=== PATIENT | male | born 1935 | race Caucasian/White ===

== ENCOUNTER → 2023-07-29 11:23 | Outpatient (REF) | payer MEDICARE, OTHER, SELFPAY | LOC: HWRAD 11:23 | PROVIDERS: ATTENDING PHYSICIAN Podiatrist | DX: M1A.0710 Idiopathic chronic gout, right ankle and foot, without tophus (tophi) (principal); M79.671 Pain in right foot | CPT/HCPCS: 73630 ==

== ENCOUNTER → 2023-08-09 13:08 | Outpatient (REF) | payer MEDICARE, OTHER, SELFPAY | LOC: RAD 13:08 | PROVIDERS: ATTENDING PHYSICIAN Podiatrist; FAMILY PHYSICIAN Internal Medicine Geriatric Medicine | DX: I80.9 Phlebitis and thrombophlebitis of unspecified site (principal); M79.671 Pain in right foot; R60.0 Localized edema | CPT/HCPCS: 93971 ==

== ENCOUNTER 2023-10-12 11:00 | Inpatient (IN) | payer MEDICARE, OTHER, SELFPAY ==
[2023-10-11 18:33] VITALS: BP 153/71
[2023-10-11 18:42] VITALS: BMI 22.7
[2023-10-11 19:42] LABS: % Basophils 0.6 % (0-2); % Eosinophils 2.2 % (0-6); % Immature Granulocytes 0.2 % (0-0.5); % Lymphocytes 18.7 % (20.5-51.1); % Monocytes 10.6 % (1.7-9.3); % Neutrophils 67.7 % (42.2-75.2); Absolute Eosinophils 0.1 10^3/uL (0-0.7); Absolute Monocytes 0.6 10^3/uL (0.1-0.6); Absolute Neutrophils 3.7 10^3/uL (1.4-6.5); Hematocrit 31.7 % (39.0-52.0); Hemoglobin 11.3 g/dL (13.0-18.0); Mean Corp Hgb Conc. 35.6 g/dL (33.0-37.0); Mean Corpuscular Hgb 36.3 pg (27.0-31.0); Mean Corpuscular Volume 101.9 fL (80.0-94.0); Nucleated Red Blood Cells % 0 % (-); Platelet Count 100 10^3/uL (130-400); Red Blood Cell Count 3.11 10^6/uL (4.70-6.10); Red Cell Dist. Width 15.9 % (11.5-14.5); White Blood Cell Count 5.5 10^3/uL (4.8-10.8)
--- NOTE | 2023-10-11 19:49 | ED.GENMED ---
History of Present Illness
<Roverto Doan Jr., PA-C - Last Filed: 10/12/23 07:01>
General
Chief Complaint: Fall
Source: patient, spouse and family
Exam Limitations: none
Time Seen by Provider: 10/11/23 18:50
Nursing documentation reviewed up to this point in time: agreed with
Travel History
Have you had any contact with someone who has COVID-19?: No
Do you have any symptoms of coronavirus? Fever > 100 degrees, chills, cough, shortness of breath, sore throat, loss of taste or smell, muscle aches, or headache?: No
History of Present Illness
History of Present Illness:
87-year-old male past medical history of A-fib currently on Coumadin, heart disease presenting to the emergency department today with concerns of multiple falls claiming that his right leg is giving out. Denies any significant trauma did not hit
his head. Lives in independent living with his elderly . Denies any chest pain shortness of breath. No numbness or weakness.
Past History
<Roverto Doan Jr., PA-C - Last Filed: 10/12/23 07:01>
Past History
ED Past Medical History: Arrthythmia, CAD, Cancer, HTN and Other
ED Past Surgical History: Orthopedic
Social History
Tobacco: Non-smoker
Alcohol: None
Drug: None
Personal:
Living: with family
Employment: Retired
Family History
Family History: Other (Noncontributory)
Review of Systems
<Roverto Doan Jr., PA-C - Last Filed: 10/12/23 07:01>
Review of Systems
Allergies reviewed?: Yes
All Other Systems: ROS reviewed and negative except as documented in HPI and ROS
Phy Exam
<Roverto Doan Jr., PA-C - Last Filed: 10/12/23 07:01>
Physical Exam
Physical Exam:
GENERAL: Alert , in no apparent distress
EYE: pupils equal and reactive
NECK: Supple, no significant adenopathy.
ENT: o/p clr, mmm.
CARDIAC: Regular rate and rhythm .
LUNGS: Clear breath sounds bilaterally, no acute respiratory distress, no wheezes/rales/rhonchi
ABDOMEN: Soft, without focal tenderness, no r/g, no cvat
NEUROLOGICAL: Alert and oriented, no focal neuro deficits
SKIN: Warm and dry, skin intact.
MUSCULOSKELETAL: Significantly swollen right leg +2 pitting edema left-sided +1 pitting edema pitting edema mainly distal to the knees bilaterally. Difficulty with raising the right leg on exam. No sensation changes well perfused.
PSYCH: Normal and appropriate interaction.
Course
<Roverto Doan Jr., PA-C - Last Filed: 10/12/23 07:01>
Orders/Labs/Results
Orders:
Orders
10/11/23 Dinner
Cholesterol Lowering
At Your Request: Full Participation
Fluid Restriction: 1200 mL/day (40 oz)
Cholesterol Lowering: Sodium, 2 Gram
10/11/23 19:24
CR Knee- Right 4 Or More View* Urgent
Comment:
Reason For Exam: leg pain
Hip, Right 2-3 Views [CR Hip - RT w/wo Pel 2-3 Vw*] Urgent
Comment:
Reason For Exam: right hip pain
Include a pelvis x-ray?: Yes
Venous Doppler Lwr Ext Rt [US Periph Venous LOWER Ext RT] Urgent
Comment:
Reason For Exam: leg swelling
10/11/23 19:28
CBC/With Diff [Complete Blood Count/With Diff] Urgent
CMP [Comprehensive Metabolic Panel] Urgent
PT/INR [Prothrombin Time] Urgent
Urinalysis Reflex To Culture Urgent
Date Specimen was Collected: 10/11/23
Time Specimen was Collected: :
Urine Microscopic Reflex Cult Urgent
Urine Culture Urgent
ANA LUISA Source: U
Specimen Description:
Date Specimen was Collected: 10/11/23
Time Specimen was Collected: 19:
10/11/23 21:36
EKG [Electrocardiogram (*1)] Urgent
Reason for Study: Atrial Fibrillation
10/11/23 22:01
Admit/Transfer Patient As Directed
Co-Sign Provider:
Level of Care: Observation services
Assign to:: Telemetry
Physician / Group: lorraine romo
Diagnosis: acute on chronic periph edema concern chf exac
Reason for Telemetry: Subacute Heart Failure
Date to Stop Telemetry: 10/13/23
Time to Stop Telemetry: 11:00
Reason for Hospitalization: acute on chronic periph edema concern chf exac
Code Status As Directed
Resuscitation Status: Do not resuscitate
Reached after discussion with pt or family/Healthcare POA: Yes
Based on pt advanced directive or healthcare POA form: Yes
Decision communicated with: per pt
10/11/23 22:02
DNR Bracelet Application ONCE
10/11/23 22:27
BNP [NT-proBNP] Urgent
10/11/23 23:55
Bisacodyl [Dulcolax] 10 mg RECTAL [id number] PRN
Diphenhydramine [Benadryl] 25 mg PO HSPRN PRN
Docusate W/Senna [Senokot-S] 1 tablet PO BIDPRN PRN
Hydrocodone 5/APAP 325 [[place] 5/325] 1 tablet PO QIDPRN PRN
Polyethylene Glycol Powder [Miralax] 17 grams PO DAILYPRN PRN
10/11/23 23:55
VTE Contraindication Routine
VTE Mechanical Device Contraindication: Medical Contraindication
Pharmocologic Contraindication: Medical Contraindication
Comment: pt on coumadin
Activity As Directed
Activity Level: With Assistance
Intake/ Output As Directed
Frequency: Per unit guidelines
Nursing to Place Non Medication Order As Directed
Physician Order: apply tubigrips to lower legs
Above order entered?: Yes
Vital Signs As Directed
Frequency: Per unit guidelines
Weight As Directed
Frequency: Daily
Ot Eval And Treat Routine
Pt Eval And Treat Routine
Activity Level: As Tolerated
10/12/23 03:36
Basic Metabolic Panel IN AM
Complete Blood Count/With Diff IN AM
INR [Prothrombin Time] IN AM
10/12/23 08:00
Allopurinol [Zyloprim] 100 mg PO DAILY
Amlodipine [Norvasc] 2.5 mg PO DAILY
Metoprolol Xl [Toprol Xl] 25 mg PO DAILY
Sacubitril 24/Valsartan 26 [Entresto 24 mg/26 mg] 1 tab PO BID
Tamsulosin [Flomax] 0.4 mg PO DAILY
10/12/23 18:00
Atorvastatin [Lipitor] 20 mg PO QPM
Warfarin [Coumadin] 6 mg PO QPM
10/12/23 22:00
Aspirin Low Dose EC [Aspir Low (Enteric Coated)] 81 mg PO HS
Finasteride [Proscar] 5 mg PO HS
10/13/23 06:00
Basic Metabolic Panel IN AM
Complete Blood Count/With Diff IN AM
INR [Prothrombin Time] IN AM
10/13/23 11:00
DC Protocol for Telemetry ONCE
Abnormal Lab Results
10/11/23
19:28
RBC 3.11 L 10^6/uL
(4.70-6.10)
Hgb 11.3 L g/dL
(13.0-18.0)
Hct 31.7 L %
(39.0-52.0)
MCV 101.9 H fL
(80.0-94.0)
MCH 36.3 H pg
(27.0-31.0)
RDW 15.9 H %
(11.5-14.5)
Plt Count 100 L 10^3/uL
(130-400)
Absolute Lymphs (auto) 1.0 L 10^3/uL
(1.2-3.4)
Lymphocytes % 18.7 L %
(20.5-51.1)
Monocytes % 10.6 H %
(1.7-9.3)
PT 22.6 H Sec
(11.4-14.6)
BUN 29 H mg/dl
(9-20)
Glucose 111 H mg/dl
(70-99)
Alkaline Phosphatase 178 H U/L
(38-126)
Total Protein 6.1 L g/dl
(6.3-8.2)
Urine Ketones Trace A
(Negative)
Leukocyte Esterase Rfl 1+ A
(Negative)
Urine Bacteria (Reflex) Many A
(Negative)
10/11/23 19:28
10/11/23 19:28
Vital Signs
Initial and Last Documented VS:
Initial Vital Signs
Temp Pulse Resp BP Pulse Ox
98.3 F 66 20 153/71 96
10/11/23 18:33 10/11/23 18:33 10/11/23 18:33 10/11/23 18:33 10/11/23 18:33
Last Documented Vital Signs
Temp Pulse Resp BP Pulse Ox
97.6 F 62 16 164/91 97
10/12/23 03:37 10/12/23 05:00 10/12/23 03:37 10/12/23 03:35 10/12/23 03:37
<Daija Wilson, INTERACTIVE MEDIA SPECIALIST - Last Filed: 10/11/23 23:24>
Orders/Labs/Results
Orders:
Orders
10/11/23 Dinner
Cholesterol Lowering
At Your Request: Full Participation
Fluid Restriction: 1200 mL/day (40 oz)
Cholesterol Lowering: Sodium, 2 Gram
10/11/23 19:24
CR Knee- Right 4 Or More View* Urgent
Comment:
Reason For Exam: leg pain
Hip, Right 2-3 Views [CR Hip - RT w/wo Pel 2-3 Vw*] Urgent
Comment:
Reason For Exam: right hip pain
Include a pelvis x-ray?: Yes
Venous Doppler Lwr Ext Rt [US Periph Venous LOWER Ext RT] Urgent
Comment:
Reason For Exam: leg swelling
10/11/23 19:28
CBC/With Diff [Complete Blood Count/With Diff] Urgent
CMP [Comprehensive Metabolic Panel] Urgent
PT/INR [Prothrombin Time] Urgent
Urinalysis Reflex To Culture Urgent
Date Specimen was Collected: 10/11/23
Time Specimen was Collected: 19:27
Urine Microscopic Reflex Cult Urgent
Urine Culture Urgent
ANA LUISA Source: U
Specimen Description:
Date Specimen was Collected: 10/11/23
Time Specimen was Collected: 19:27
10/11/23 21:36
EKG [Electrocardiogram (*1)] Urgent
Reason for Study: Atrial Fibrillation
10/11/23 22:01
Admit/Transfer Patient As Directed
Co-Sign Provider:
Level of Care: Observation services
Assign to:: Telemetry
Physician / Group: lorraine romo
Diagnosis: acute on chronic periph edema concern chf exac
Reason for Telemetry: Subacute Heart Failure
Date to Stop Telemetry: 10/13/23
Time to Stop Telemetry: 11:00
Reason for Hospitalization: acute on chronic periph edema concern chf exac
Code Status As Directed
Resuscitation Status: Do not resuscitate
Reached after discussion with pt or family/Healthcare POA: Yes
Based on pt advanced directive or healthcare POA form: Yes
Decision communicated with: per pt
10/11/23 22:02
DNR Bracelet Application ONCE
10/11/23 22:27
BNP [NT-proBNP] Urgent
10/11/23 23:55
Bisacodyl [Dulcolax] 10 mg RECTAL [id number] PRN
Diphenhydramine [Benadryl] 25 mg PO HSPRN PRN
Docusate W/Senna [Senokot-S] 1 tablet PO BIDPRN PRN
Hydrocodone 5/APAP 325 [[place] 5/325] 1 tablet PO QIDPRN PRN
Polyethylene Glycol Powder [Miralax] 17 grams PO DAILYPRN PRN
10/11/23 23:55
VTE Contraindication Routine
VTE Mechanical Device Contraindication: Medical Contraindication
Pharmocologic Contraindication: Medical Contraindication
Comment: pt on coumadin
Activity As Directed
Activity Level: With Assistance
Intake/ Output As Directed
Frequency: Per unit guidelines
Nursing to Place Non Medication Order As Directed
Physician Order: apply tubigrips to lower legs
Above order entered?: Yes
Vital Signs As Directed
Frequency: Per unit guidelines
Weight As Directed
Frequency: Daily
Ot Eval And Treat Routine
Pt Eval And Treat Routine
Activity Level: As Tolerated
10/12/23 03:36
Basic Metabolic Panel IN AM
Complete Blood Count/With Diff IN AM
INR [Prothrombin Time] IN AM
10/12/23 08:00
Allopurinol [Zyloprim] 100 mg PO DAILY
Amlodipine [Norvasc] 2.5 mg PO DAILY
Metoprolol Xl [Toprol Xl] 25 mg PO DAILY
Sacubitril 24/Valsartan 26 [Entresto 24 mg/26 mg] 1 tab PO BID
Tamsulosin [Flomax] 0.4 mg PO DAILY
10/12/23 18:00
Atorvastatin [Lipitor] 20 mg PO QPM
Warfarin [Coumadin] 6 mg PO QPM
10/12/23 22:00
Aspirin Low Dose EC [Aspir Low (Enteric Coated)] 81 mg PO HS
Finasteride [Proscar] 5 mg PO HS
10/13/23 06:00
Basic Metabolic Panel IN AM
Complete Blood Count/With Diff IN AM
INR [Prothrombin Time] IN AM
10/13/23 11:00
DC Protocol for Telemetry ONCE
Abnormal Lab Results
10/11/23
19:28
RBC 3.11 L 10^6/uL
(4.70-6.10)
Hgb 11.3 L g/dL
(13.0-18.0)
Hct 31.7 L %
(39.0-52.0)
MCV 101.9 H fL
(80.0-94.0)
MCH 36.3 H pg
(27.0-31.0)
RDW 15.9 H %
(11.5-14.5)
Plt Count 100 L 10^3/uL
(130-400)
Absolute Lymphs (auto) 1.0 L 10^3/uL
(1.2-3.4)
Lymphocytes % 18.7 L %
(20.5-51.1)
Monocytes % 10.6 H %
(1.7-9.3)
PT 22.6 H Sec
(11.4-14.6)
BUN 29 H mg/dl
(9-20)
Glucose 111 H mg/dl
(70-99)
Alkaline Phosphatase 178 H U/L
(38-126)
Total Protein 6.1 L g/dl
(6.3-8.2)
Urine Ketones Trace A
(Negative)
Leukocyte Esterase Rfl 1+ A
(Negative)
Urine Bacteria (Reflex) Many A
(Negative)
10/11/23 19:28
10/11/23 19:28
Vital Signs
Initial and Last Documented VS:
Initial Vital Signs
Temp Pulse Resp BP Pulse Ox
98.3 F 66 20 153/71 96
10/11/23 18:33 10/11/23 18:33 10/11/23 18:33 10/11/23 18:33 10/11/23 18:33
Last Documented Vital Signs
Temp Pulse Resp BP Pulse Ox
97.6 F 62 16 164/91 97
10/12/23 03:37 10/12/23 05:00 10/12/23 03:37 10/12/23 03:35 10/12/23 03:37
<Roverto Doan Jr., PA-C - Last Filed: 10/12/23 07:01>
MDM/Problems Addressed
MDM/Problems Addressed:
87-year-old male presenting to the emergency department today with concerns of multiple falls today claims that his right leg has felt heavy difficulty with ambulating secondary to it. Comes that he had chronic problems with the right leg. He is
noticed increased swelling to the right leg as well. On examination he has significant swelling to the right leg without redness or warmth no signs of infection. No specific focal pain.
<Daija Wilson INTERACTIVE MEDIA SPECIALIST - Last Filed: 10/11/23 23:24>
MDM/Problems Addressed
MDM/Problems Addressed:
87-year-old male presenting to the emergency department today with concerns of multiple falls today claims that his right leg has felt heavy difficulty with ambulating secondary to it. Comes that he had chronic problems with the right leg. He is
noticed increased swelling to the right leg as well. On examination he has significant swelling to the right leg without redness or warmth no signs of infection. No specific focal pain.
US: No DVT
Plan: Admit, ambulatory dysfunction, fall due to significant leg swelling
Hospitalist notified of admission
Needs P/T and Case Management
<Daija Wilson INTERACTIVE MEDIA SPECIALIST - Last Filed: 10/11/23 23:24>
*Critical Care Note
Total Time (30-74mins, 75-104mins- exclusive of procedures): Not Applicable
ED Attending Note
<Roverto Doan Jr., PA-C - Last Filed: 10/12/23 07:01>
-
Portions of this chart may have been created with voice recognition software.� Occasional wrong word or��sound alike� substitutions may have occurred due to the inherent limitations of voice recognition software.
Discharge Plan
Departure
Patient Disposition: Admit
Date of Disposition: 10/11/23
Time of Disposition: 21:17
Admit to: Med/Surg
Presentation/result/management discussed w/ accepting MD/DO: Hospitalist
Condition: Fair
Discharge Problem:
Fall, Ambulatory dysfunction, Swelling of right lower extremity
Interventions
Interventions:
*Risk Screen - Suicide Last Done: 10/11/23 18:33
*General Assessment Last Done: 10/11/23 18:33
*Neglect/Abuse Screening Last Done: 10/11/23 18:33
ED- Fall Risk Assessment Last Done: 10/11/23 18:44
*ED COVID-19 Vaccine History Last Done: 10/11/23 18:43
*Nursing Disposition Last Done: 10/11/23 23:50
ED-Musculoskeletal Assessment Last Done: 10/11/23 18:45
ED- Neurological Assessment Last Done: 10/11/23 18:45
ED-Skin Assessment Last Done: 10/11/23 18:45
Discharge Date and Time
Discharge Date/Time: 10/11/23 23:52
[2023-10-11 19:50] VITALS: BP 137/73
[2023-10-11 19:52] LABS: INR 2.01; PT 22.6 Sec (11.4-14.6)
[2023-10-11 19:54] LABS: ALT (SGPT) 26 U/L (0-50); AST (SGOT) 31 U/L (17-59); Albumin 3.5 g/dl (3.5-5.0); Alkaline Phosphatase 178 U/L (38-126); Blood Urea Nitrogen 29 mg/dl (9-20); Calcium 9.8 mg/dl (8.4-10.2); Carbon Dioxide 29 mmol/L (22-30); Chloride 104 mmol/L (98-107); Estimated Creatinine Clearance 53 ml/min; Glucose 111 mg/dl (70-99); Sodium 135 mmol/L (135-145); Total Bilirubin 0.7 mg/dl (0.2-1.3); Total Protein 6.1 g/dl (6.3-8.2); eGFR > 60.00
[2023-10-11 20:15] VITALS: BP 152/83
--- NOTE | 2023-10-11 21:29 | HPS.HSE ---
Family Physician
-
Family Physician: Ashwini Solis
Chief Complaint
-
Bilateral leg edema right greater than left, falls
History of Present Illness
87-year-old male complaining of right leg pain with increased edema giving out causing multiple falls today x 3. He states he has had leg edema for the past 3 weeks is unable to put his Velcro stockings on. He is compliant with his furosemide 20
mg daily. He has current +3 edema to the right lower extremity with weakness and lifting his leg up. He denies worsening back pain on chronic lower lumbar pain for which she takes Vicodin 3 times daily 4. He reports chronic urinary incontinence
times many months is on 2 BPH medications. He denies any fecal incontinence. He denies fever, chills, chest pain, palpitations, dizziness, lightheadedness, shortness of breath, cough, abdominal pain, nausea, vomiting, diarrhea, dysuria. He
reports he lives independently with his elderly . He denies any loss of consciousness. Patient is past medical history of CAD with multiple cardiac stents, HTN, HLD A-fib persistent, chronic CHF reduced EF 40%, cardiomyopathy mitral regurg,
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
Medical History
Past Medical History
Past Medical History: Reports Other
Additional Past Medical History:
CAD with multiple cardiac stents
HTN
HLD
A-fib persistent
chronic CHF reduced EF 40%
cardiomyopathy mitral regurg, ex-smoker quit 35 years
chronic back pain, dysphagia
chronic ambulatory dysfunction
non-Hodgkin's lymphoma
macular degeneration
NAPAIMUTE.
Past Surgical History: Reports Other
Additional Past Surgical History:
Spinal fusion S1 [facility] 2016
Angioplasty 1990
Cardiac stent x [id number]
Cardiac cath 2008
Carotid stent March 2011
Laminectomy 1998
Back surgery 1995
Neurostimulator in back unsure date
Right total knee replacement January 2015
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
Social History
Tobacco: Non-smoker
Alcohol: Daily (1 glass of wine daily)
Personal:
Living: With Family ( independently at [facility])
Employment: Retired
Family History
Family History: Other (Mother of cancer in throat area age 60 father myocardial infarction)
Allergies / Home Medications
Allergies reflects when Allergies were last updated in [employer].
Home Medications with original date entered in [employer]
Allergy/Medication List:
Allergies
Allergy/AdvReac Type Severity Reaction Status Date / Time
erythromycin base Allergy diarrhea Verified 10/11/23 18:33
Home Medications
aspirin 81 mg tablet,delayed release 81 mg PO HS 04/20/19
amlodipine 2.5 mg tablet 2.5 mg PO DAILY 04/23/19
atorvastatin 20 mg tablet 20 mg PO QPM 04/23/19
tamsulosin 0.4 mg capsule 0.4 mg PO DAILY 04/23/19
finasteride 5 mg tablet 5 mg PO HS 04/29/19
furosemide 20 mg tablet 20 mg PO DAILY ##0 02/07/21
nitroglycerin 0.4 mg sublingual tablet 0.4 mg sublingual PRN PRN As Needed 02/07/21
warfarin 4 mg tablet (Jantoven) 6 mg PO QPM 02/07/21
allopurinol 100 mg tablet 100 mg PO DAILY 10/11/23
colchicine 0.6 mg tablet 0.6 mg PO DAILY 10/11/23
diphenhydramine HCl 25 mg capsule (Benadryl) 25 mg PO HSPRN PRN Insomnia 10/11/23
hydrocodone 5 mg-acetaminophen 300 mg tablet 1 tab PO QIDPRN PRN severe pains 10/11/23
metoprolol succinate 25 mg tablet,extended release 24 hr 25 mg PO DAILY 10/11/23
sacubitril 24 mg-valsartan 26 mg tablet (Entresto) 1 tab PO BID 10/11/23
Review of Systems
-
History Source: Patient
A 12 point ROS was completed and negative except as noted: Yes
Constitutional: Denies Fever or Chills
EENT: Denies Sore Throat or Runny Nose
Respiratory: Denies Cough or Trouble Breathing
Cardiac: Denies Chest Pain, Diaphoresis, Palpitations or Syncope
Abdomen/GI: Denies Abdominal Pain, Nausea, Vomiting, Diarrhea, Constipated, Bloody Stools or Black Stools
: Reports Incontinence (Chronic urinary); Denies Dysuria, Frequency, Flank Pain or Difficulty Voiding
Musculoskeletal: Reports Edema (+3 right lower extremity, +2 left lower extremity); Denies Joint Pain
Skin: Denies Itching or Rash
Neurological: Reports Weakness (Right lower extremity likely secondary to peripheral edema); Denies Dizzy or Headache
Endocrine: Reports No Symptoms
Hematologic/Lymphatic: Reports No Symptoms
Psych: Reports Calm
Physical Exam
Vital Signs
Vital Signs
Temp Pulse Resp BP Pulse Ox
98.3 F 66 12 152/83 100
10/11/23 18:33 10/11/23 20:15 10/11/23 20:15 10/11/23 20:15 10/11/23 20:14
Physical Exam
General: Comfortable and Conversant; No Fever or Chills
HEENT: NormoCephalic, Anicteric, Moist mucous membranes, Atraumatic, PERRLA and [place] Conjunctivae
Respiratory: Clear; No Wheezes, Rales or Rhonchi
Cardiac: S1/S2 and Peripheral Edema (+3 right lower extremity, +2 left lower extremity); No Murmur, Rub or Gallop
Breast: Deferred by me
GI: Soft, Non Tender, Non Distended, Normal Bowel Sounds and Other (No hepatomegaly, spleen is absent)
Genito-urinary: Deferred by me
Musculoskeletal: No Clubbing, No Cyanosis, Edema, Left Lower Extremity (+3 right lower extremity, +2 left lower extremity) and Edema, Right Lower Extremity (+3 right lower extremity, +2 left lower extremity); No Edema, Left Upper Extremity or Edema,
Right Upper Extremity
Skin: Warm and Dry; No Rash or Jaundice
Neuro: AO x 3, Cranial Nerves Intact, No Sensory Deficits and Other (Right leg 3 out of 5 strength likely secondary to +3 peripheral edema, sensation is intact, left leg 4 out of 5 strength with +2 edema); No Slurred Speech or Facial Droop
Psych: Calm
Laboratory Results
-
10/11/23 19:28
10/11/23 19:28
Laboratory Results
PT 22.6 Sec (11.4-14.6) H 10/11/23 19:28
INR 2.01 10/11/23 19:28
Total Bilirubin 0.7 mg/dl (0.2-1.3) 10/11/23 19:28
AST 31 U/L (17-59) 10/11/23 19:28
ALT 26 U/L (0-50) 10/11/23 19:28
Alkaline Phosphatase 178 U/L (38-126) H 10/11/23 19:28
Impression/Plan
-
Impression/plan:
Admit to telemetry
-Acute on chronic peripheral edema right greater than left likely secondary to acute on chronic CHF
-Has not been wearing his Velcro teds except for 3 to 4 days ago
-Ultrasound right lower extremity negative for DVT
-Uses rollator at baseline and motorized scooter long distance
-Apply teds to lower extremities
# Acute on chronic CHF/cardiomyopathy
-I/O, daily weights
-Iv lasix 40 mg now then 40 mg dialy (bar captain furosemide 20 mg daily)
-Follows with [facility] cardiology
-Check BNP
2D echo 12/10/2020: EF 40%, moderately reduced systolic function. Global hypokinesis, mild MR/TR. Mild dilated aortic root 3.3 cm
#Acute on chronic ambulatory dysfunction multiple recent falls due to leg edema
--PT/OT/case management consult
-Check UA CONSERVATION TECHNICIAN
#A-fib persistent
-INR 2.01
-Continue Coumadin 4 mg Sututhfrsa, 2 mg Wednesday follow INR daily
#BPH with chronic urinary incontinence
Uses depends at night
Continue tamsulosin 0.4 mg daily, finasteride 5 mg at bedtime
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
#Chronic thrombocytopenia
Hgb 11.3, PLT 100
Follow CBC
#HTN�benign
152/83
-Check orthostatics
Continue amlodipine 2.5 mg daily, metoprolol succinate 25 mg daily
#HLD
-Continue atorvastatin 20 mg every afternoon
#CAD
#Multiple cardiac stents
#Angioplasty 1990
#Cardiac stent x [id number]
#Cardiac cath 2008
-Continue aspirin, statin
#Hx carotid stent
#Chronic lumbar back pain
#Neurostimulator in back with removal
-Continue Vicodin 3 times daily
#Gout
Continue allopurinol 100 mg daily
Was on recent colchicine
Other PMH:
macular degeneration
[place]
DVT prophylaxis
Continue [employer] Coumadin
DNR per patient
--- NOTE | 2023-10-11 21:43 | W.PN.UPDATE ---
Addendum entered and electronically signed by Pool Cedeno MD 10/11/23 23:27:
Laboratory Tests
04/20/19 10/11/23
08:56 22:27
Crg-I-Llekgffeazz Pept 4540 3940
Clinically volume expanded
- IV Lasix 40 x 1
- Await ECHO and CBC card eval in AM
Original Note:
Update Note
Progress Note Update
This note serves as an addendum to the H&P by dressage instructor RODOLFO Marta COOLEY
HPI
87M independently living with elderly at [facility] , HX CAD, multiple stents, HX AF on Coumadin. HX chr HFrEF chr Jocelyn edema
seen at ER for multiple falls
Multiple falls at home
- associated with subacute progressive Jocelyn edema
- associated with ambulatory dysfunction( use scooter and [employer])
- chr b/l Jocelyn edema s/p Rt TKR as of 2014 - no prior HX DVT
- subacute weakness of Rt foot dorsi flexion : denied trauma
- denied hit head , denied injury
- on Coumadin for HX AF
- Lives in independent living with his elderly .
Chronic urinary incontinence
- denied acute dysuria and urgency
HX BPH on Tamsulosin and finasteride
ROS
Denies any chest pain shortness of breath. No numbness or weakness.
PHX
1. Essential hypertension, controlled.
2. Chronic decompensated diastolic congestive heart failure. Recent echo 04/24 with normal ejection fraction.
3. Paroxysmal atrial fibrillation on coumadin
4. Primary hyperparathyroidism
5. CAD status post sten on ASA
6. HX non-Hodgkin's lymphoma treated with chemo 25 years ago.
7. 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
8. Transient ischemic attack, 2009.
9. Colon polyp.
10.Spinal stenosis/degenerative disk disease, status post lumbar fusion, status post diskectomy.
Allergies
Allergy/AdvReac Type Severity Reaction Status Date / Time
erythromycin base Allergy diarrhea Verified 10/11/23 18:33
Home Medications
aspirin 81 mg tablet,delayed release 81 mg PO HS 04/20/19
amlodipine 2.5 mg tablet 2.5 mg PO DAILY 04/23/19
atorvastatin 20 mg tablet 20 mg PO QPM 04/23/19
tamsulosin 0.4 mg capsule 0.4 mg PO DAILY 04/23/19
finasteride 5 mg tablet 5 mg PO HS 04/29/19
furosemide 20 mg tablet 20 mg PO DAILY ##0 02/07/21
nitroglycerin 0.4 mg sublingual tablet 0.4 mg sublingual PRN PRN As Needed 02/07/21
warfarin 4 mg tablet (Jantoven) 6 mg PO QPM 02/07/21
allopurinol 100 mg tablet 100 mg PO DAILY 10/11/23
colchicine 0.6 mg tablet 0.6 mg PO DAILY 10/11/23
diphenhydramine HCl 25 mg capsule (Benadryl) 25 mg PO HSPRN PRN Insomnia 10/11/23
hydrocodone 5 mg-acetaminophen 300 mg tablet 1 tab PO QIDPRN PRN severe pains 10/11/23
metoprolol succinate 25 mg tablet,extended release 24 hr 25 mg PO DAILY 10/11/23
sacubitril 24 mg-valsartan 26 mg tablet (Entresto) 1 tab PO BID 10/11/23
Reviewed VS: unremarkable HR mid 60s BP 150/80
PE
Gen: conversant , NAD
HEENT: anicteric , no pallor
Neck: supple
Lungs: symmetric AE
Cor: S1 S2 regular
Abdomen: soft abdomen
CHEMICAL TEST ENGINEER: AAO3, NFND
MS:subacute progressive Jocelyn edema
Psych: appropriate
Data
Hgb 11.3
BUN 29
Cr 1.1 eGFR > 60
INR 2.0
Pending UA
Knee XR pending report
Hip XR pending report
Rt Jocelyn US: NEG DVT
12/10/20 ECHO
LVEF 40
Global hypokinesis
Mild MR
Mild TR
Last hospitalist admission: 04/29/19 - 05/04/19
PRIMARY DIAGNOSES:
1. Complicated urinary tract infection with Escherichia coli.
2. Hematuria, resolved.
ASSESSMENT & PLAN
Multiple falls with associated chronic ambulatory dysfunction
Associated with multiple comorbidity like chr HFrEF, Jocelyn edema , HX AF . chr LBP on Vicodin
Other DDX: deconditioning, eval for UTI
- check UA - pending report
- pro BNP
- ortho VSS
- admission EKG
- fall precaution
- PT/OT
Clinically expanded volume ? acute HF
Ch HFrEF with EF 45
Denied SoB
- check pro BNP to consider IV diuresis
- cont metoprolol succinate , Entresto
Chronic urinary incontinence
- denied acute dysuria and urgency
- HX BPH on Tamsulosin and finasteride
- await UA
Essential HTN
- somewhat controlled
- cont. GREENSMAN Amlodipine, Metoprolol succinate
Paroxysmal AF
- INR 2
- cont. GREENSMAN Warfarin
- daily INR while IP
Primary hyperparathyroidism
CAD status post sten on ASA
HX non-Hodgkin's lymphoma treated with chemo 25 years ago.
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
Transient ischemic attack, 2009.
Colon polyp.
Spinal stenosis/degenerative disk disease, status post lumbar fusion, status post diskectomy.
DVT Px: on Warfarin
Code: full code
Obs TLM
[2023-10-11 22:35] LABS: Urine Albumin Trace (Neg - Trace); Urine Bilirubin Negative (Negative); Urine Character Slightly Cloudy (Clear); Urine Color Yellow; Urine Glucose Negative (Negative); Urine Ketone Trace (Negative); Urine Leukocyte 1+ (Negative); Urine Nitrite Negative (Negative); Urine Occult Blood Negative (Negative); Urine Urobilinogen Negative (Neg - 1+)
[2023-10-11 22:56] LABS: NT-proBNP 3940 pg/ml
[2023-10-11 23:10] LABS: Urine Bacteria Many (Negative); Urine Red Blood Cell 0-2 /HPF (0-2); Urine Squamous Cell 0-2 /LPF (Few)
[2023-10-11 23:24] VITALS: BP 132/59
[2023-10-11 23:50] VITALS: BP 132/59
[2023-10-11 23:56] VITALS: BMI 21.9
[2023-10-12] VITALS (9 sets, daily range): BP systolic 140–169; BP diastolic 73–97; PULSE 67–70; O2SAT 96–97; BMI 21.9; BMI 22.0
[2023-10-12] MEDS: LASIX 40 MG IV ×3 (00:21→16:43)
[2023-10-12] MEDS: BENADRYL 25 MG PO ×2 (01:07→22:53)
--- NOTE | 2023-10-12 01:24 | PTCARENOTE ---
Addendum entered by Natali Licona RN 10/12/23 01:40:
pt rang call henderson c/o lower back pain. Stating its a 11/23. PRN dose of [place] administered--see MAR for further details.
Original Note:
Received patient from ED via stretcher into room 2201. Pt AAOx3, tele monitor applied pt Afib w/ occasional PVCs. Lungs decreased throughout. Denies any pain. Incontinent of urine and had and inc episode of formed brown BM. #35 CC applied, pt
draining yellow urine. Patient oriented to room, and aware of POC. Call henderson in reach.
[2023-10-12] MEDS: NORCO 5/325 1 TABLET PO ×4 (01:38→21:16)
[2023-10-12 03:50] LABS: % Basophils 0.4 % (0-2); % Eosinophils 0.7 % (0-6); % Immature Granulocytes 0.5 % (0-0.5); % Lymphocytes 22.3 % (20.5-51.1); % Monocytes 8.4 % (1.7-9.3); % Neutrophils 67.7 % (42.2-75.2); Absolute Lymphocytes 1.2 10^3/uL (1.2-3.4); Absolute Monocytes 0.5 10^3/uL (0.1-0.6); Absolute Neutrophils 3.7 10^3/uL (1.4-6.5); Hematocrit 32.7 % (39.0-52.0); Hemoglobin 11.7 g/dL (13.0-18.0); Mean Corp Hgb Conc. 35.8 g/dL (33.0-37.0); Mean Corpuscular Hgb 35.9 pg (27.0-31.0); Mean Corpuscular Volume 100.3 fL (80.0-94.0); Nucleated Red Blood Cells % 0 % (-); Red Blood Cell Count 3.26 10^6/uL (4.70-6.10); Red Cell Dist. Width 15.6 % (11.5-14.5); White Blood Cell Count 5.5 10^3/uL (4.8-10.8)
[2023-10-12 04:00] LABS: INR 1.96; PT 22.2 Sec (11.4-14.6)
[2023-10-12 04:02] LABS: Blood Urea Nitrogen 28 mg/dl (9-20); Carbon Dioxide 24 mmol/L (22-30); Chloride 104 mmol/L (98-107); Estimated Creatinine Clearance 51 ml/min; Glucose 156 mg/dl (70-99); Potassium 4.2 mmol/L (3.5-5.1); Sodium 136 mmol/L (135-145); eGFR > 60.00
[2023-10-12 04:17] LABS: Mean Platelet Volume 13.6 fL (7.4-10.4); Platelet Count 97 10^3/uL (130-400)
--- NOTE | 2023-10-12 08:12 | CON.CAR ---
Addendum entered and electronically signed by Augusta Arriola MD 10/12/23 11:00:
I saw and examined the patient.
The RACING SECRETARY's note was reviewed and I agree with the note.
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
issues. He denies dyspnea. On exam he has an elevated jvp at 14m H20, bibasilar rales and 1-2+ pitting edema. I do suspect some volume overload and certainly his le edema is adding to his ambulatory dysfunction. Continue diureisis. Add tubigrips.
BP is elevated will eventually try to increase Entresto once euvolemic. Will follow.
Original Note:
Consultation
Consultation Request
Date/Time Consultation Requested: 10/11/2023 23:35
Date/Time Consultation Performed: 10/12/2023 08:00
Requesting Provider: KARL Moe
Performing Provider: KARL Thorpe for Dr. Arriola
Reason for Consultation: Acute heart failure
Medical History
-
Chief Complaint: Falls
History of Present Illness:
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
department with ambulatory dysfunction. He lives at [facility] in an apartment with his . He reports he has had multiple falls prior to arrival. He reports lower extremity pain and swelling. This has gotten worse over the past several
days. He reports medication and dietary adherence. He also reports worsening lumbar pain. He has been taking Vicodin 3 times overnight for the past several days. He has bilateral lower extremity edema. He does not have any chest pain. He
denies shortness of breath. He does not appear orthopneic on exam. Currently, his biggest complaint is lumbar back pain.
Past Medical History
Past Medical History: Arrhythmias (Permanent atrial fibrillation), CAD, Cancer (Non-Hodgkin's lymphoma), CHF, HTN and Hypercholesterolemia
Past Surgical History: Orthopedic and Other (Splenectomy)
Social History
Tobacco: Former Smoker
Alcohol: Daily (1 glass of wine/day)
Drug: None
Personal:
Living: With Family
Employment: Retired
Family History
Family History: Reviewed & Not Pertinent
Allergies / Home Medications
Allergy/AdvReac Type Severity Reaction Status Date / Time
erythromycin base Allergy diarrhea Verified 10/11/23 18:33
�Medication �Instructions �Recorded �Confirmed �Type
aspirin 81 mg tablet,delayed 81 mg PO HS Blood Clot 04/20/19 10/11/23 History
release Prevention/Tx
amlodipine 2.5 mg tablet 2.5 mg PO DAILY 04/23/19 10/11/23 Rx
atorvastatin 20 mg tablet 20 mg PO QPM 04/23/19 10/11/23 Rx
tamsulosin 0.4 mg capsule 0.4 mg PO DAILY 04/23/19 10/11/23 Rx
finasteride 5 mg tablet 5 mg PO HS 04/29/19 10/11/23 History
nitroglycerin 0.4 mg sublingual 0.4 mg sublingual PRN PRN As Needed 02/07/21 10/11/23 History
tablet
warfarin 4 mg tablet (Jantoven) 6 mg PO QPM Blood Clot 02/07/21 10/11/23 History
Prevention/Tx
allopurinol 100 mg tablet 100 mg PO DAILY 10/11/23 10/11/23 History
colchicine 0.6 mg tablet 0.6 mg PO DAILY 10/11/23 10/11/23 History
diphenhydramine HCl 25 mg capsule 25 mg PO HSPRN PRN Insomnia 10/11/23 10/11/23 History
(Benadryl)
hydrocodone 5 mg-acetaminophen 300 1 tab PO QIDPRN PRN severe pains 10/11/23 10/11/23 History
mg tablet
metoprolol succinate 25 mg 25 mg PO DAILY Heart 10/11/23 10/11/23 History
tablet,extended release 24 hr Disease/Condition
sacubitril 24 mg-valsartan 26 mg 1 tab PO BID Heart 10/11/23 10/11/23 History
tablet (Entresto) Disease/Condition
furosemide 20 mg tablet 20 mg PO DAILY Fluid 10/12/23 10/11/23 History
Retention/Swelling
Review of Systems
-
History Source: Patient
All other systems: Negative unless noted
Constitutional: Fatigue
Respiratory: No Symptoms
Cardiac: No Symptoms
Musculoskeletal: Muscle Pain (Lower back) and Edema (Bilateral lower extremity)
Physical Exam
Vital Signs
Temp Pulse Resp BP Pulse Ox
98.2 F 79 16 164/91 97
10/12/23 07:16 10/12/23 07:16 10/12/23 07:16 10/12/23 03:35 10/12/23 07:16
Lab Results
10/12/23 03:36
10/12/23 03:36
Uni-M-Wxjllofdrsc Pept 3940 pg/ml 10/11/23 22:27
Physical Exam
General: Well Developed, Well Nourished, No Apparent Distress and Comfortable
HEENT: Normocephalic, Anicteric and Moist Mucous Membranes
Respiratory: Clear and Non Labored Respirations
Cardiac: S1/S2, Irregular Rhythm and Peripheral Edema
Breast: Deferred by me
GI: Soft, Non Tender and Normal Bowel Sounds
Rectal: Deferred by Provider
Genito-urinary: No Costovertebral Tender
Musculoskeletal: No Clubbing, No Cyanosis and Edema (Bilateral lower extremity)
Skin: Warm and Dry
Neuro: AO x 3
Hematologic/Lymphatic: No Lymphadenopathy
Psych: Calm
Impression / Plan
-
HFrEF (LVEF 40%, 2020), acute on chronic
-Diuresis with furosemide 40 mg IV twice daily
-He would benefit from lower extremity compression, he is agreeable
-Case management to freeman SGLT2
-Trend daily weight, I/O, and BMP with diuresis
-Heart failure education, I reviewed medication and dietary adherence at the bedside
-Update echocardiogram
Permanent atrial fibrillation
-Rate controlled, some slower nocturnal, on metoprolol succinate
-Oral Anticoagulation: Warfarin, INR 1.96 this morning
-[id number]: Score at least 5 (Heart failure, HTN, age 75 or more, Vascular disease)
CAD
-PCI 2008
-Cath 01/2021: Moderate coronary artery disease in the terminal RCA and the distal LAD. Patent LAD stents.
-Continue aspirin, beta-joseph, and atorvastatin
HTN, BP above goal, follow with diuresis, will likely increase Entresto once euvolemia is achieved
Ambulatory dysfunction, multiple falls, per primary
PASQUALE stent (2010)
Non-Hodgkin's lymphoma, in remission
Splenectomy
Chronic back pain, worsened, possibly related to falls, x-ray stable
Data Reviewed
-
EKG: Report Reviewed by me (Atrial fibrillation with PVCs, left axis deviation, IRBBB, rate 70)
Medical Tests (Nuc Med, Echo etc): Report Reviewed by me (Prior echocardiogram cardiac catheterization as above)
Labs: Labs Reviewed by me
Old Records: Reviewed
[2023-10-12] MEDS: ZYLOPRIM 100 MG PO (09:06)
[2023-10-12] MEDS: FLOMAX 0.400000000000000022 MG PO (09:06)
[2023-10-12] MEDS: ENTRESTO 24 MG/26 MG 1 TAB PO ×2 (09:06→21:15)
[2023-10-12] MEDS: TOPROL XL 25 MG PO (09:06)
[2023-10-12] MEDS: NORVASC 2.5 MG PO (09:06)
[2023-10-12] MEDS: FLUSH (NSS) 1 FLUSH IV (09:07)
--- NOTE | 2023-10-12 11:07 | CM ---
Addendum entered by Reba Lozoya RN 10/12/23 14:07:
PT evaluation recommending SNF. I spoke with the patient's , Stacie, she would like her to go to [facility], [facility] or [facility]
Original Note:
Chart reviewed. Patient is independent of ADLS, lives in a apartment independent living at [facility] with his , elevator access, uses a scooter for long distance and also a rollator. Patient is not current with VN, but is interested.
Referral sent to [facility]. Plan is for the patient to return home with [facility]N. CM to follow
--- NOTE | 2023-10-12 11:10 | PTCARENOTE ---
Received patient this morning resting in bed. Complaining of severe lower back pain which he states is chronic and he takes norco at home for, medicated with norco as ordered. Patient has been incontinent of stool several times, condom cath in place
for stress incontinence. Patient is asking about a bedside commode, but has had frequent falls and discussed that he should be seen by PT/OT. Bed alarm is in place although patient states his understanding of fall precautions and is using the call
henderson. PT/OT attempting to work with him now.
--- NOTE | 2023-10-12 11:25 | CM ---
Pricing on Farxiga 10 mg is covered through the patient's [facility] Prescription Plan ID # [id number], is $55.28 for a 30 day supply
Jardiance 10mg is $38.02 for a 30 day supply
Eliquis 5mg BID is $ 56.44.
Patient is agreeable to the cost. I will place a free 30 day coupon in the patient's red discharge folder once the brand is decided
--- NOTE | 2023-10-12 11:26 | W.PN.HOSP.TC ---
Addendum entered and electronically signed by Sarbjit Hauser MD 10/12/23 17:46:
Change diagnosis:
Permanent afib
Original Note:
Today's Communication/Plan
-
Follow weight and creatinine with IV diuretics
Follow INR
PT/OT as tolerated
Assessment / Plan
Assessment / Plan
1. Acute on chronic systolic congestive heart failure
-2D echo 12/10/2020: EF 40%, moderately reduced systolic function. Global hypokinesis, mild MR/TR. Mild dilated aortic root 3.3 cm
-Increasing leg swelling R >> L causing ambulatory dysfunction
-Denies dyspnea. Not hypoxic. Lung examination relatively clear.
-Elevated JVP with signs of lower extremity edema concerning for volume overload and heart failure exacerbation
-Patient started on IV Lasix 40 mg twice daily
-Follow weight and renal function
-Repeat echocardiogram has been ordered.
2. Generalized weakness
Ambulatory dysfunction
-Patient having difficulty lifting right leg with significant swelling
-Lower extremity venous Doppler negative
-if weakness persist post resolution of edema will need further workup
3. Persistent A-fib
-Takes warfarin 6 mg every evening
-INR subtherapeutic of 1.96 today. Follow-up INR tomorrow and will increase dose of warfarin if not in range .
4. Acute thrombocytopenia
-Platelet trending down 97 today. Last known baseline of 155 in
-No sign of sepsis. splenectomy h/o and should have some thrombocytosis.
-Patient on colchicine and may cause some bone marrow suppression.
5. BPH with chronic urinary incontinence
-Continue tamsulosin 0.4 mg daily, finasteride 5 mg at bedtime
-Condom catheter in place with ongoing diuretic need
6. Essential HTN - Uncontrolled
-PRN hydralazine added to regimen
-Increase home medication dosage if persistently high
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
Hx of splenectomy
HLD
CAD/Multiple cardiac stents
Hx carotid stent
Chronic lumbar back pain
Neurostimulator in back with removal
Gout
Macular degeneration
DVT prophylaxis - Continue BILL COLLECTOR Coumadin
DNR per patient
Care plan discussed with cardiology.
Anticipated Discharge: > 48 hours
Subjective/Interval History
-
Date of Service: October 12, 2023
Resting comfortably in bed
Patient working with physical therapy, need to support right leg with both hands to swing out of bed
Having some pain and discomfort in right lower thigh and knee as well
Denying dyspnea. Not hypoxic
Objective Data
-
Labs:
Laboratory Results
10/12/23
03:36
WBC 5.5
Hgb 11.7 L
Hct 32.7 L
Plt Count 97 L
PT 22.2 H
INR 1.96
Sodium 136
Potassium 4.2
Chloride 104
Carbon Dioxide 24
BUN 28 H
Creatinine 1.1
Glucose 156 H
Calcium 10.0
Vital Signs:
Vital Signs
Temp Pulse Resp BP Pulse Ox
97.6 F 66 18 165/96 97
10/12/23 11:18 10/12/23 08:00 10/12/23 11:18 10/12/23 07:17 10/12/23 07:16
Review of Systems
-
Respiratory: Denies Cough or Trouble Breathing
Cardiac: Reports No Symptoms
Abdomen/GI: Reports No Symptoms
Physical Exam
-
General: Comfortable and Cachectic
HEENT: Negative Oxygen
Respiratory: Clear to Auscultation
Cardiac: Regular Rhythm and S1/S2; Negative Murmur or Rub
GI: Soft, Nontender and Nondistended
Musculoskeletal: Edema, Right Lower Extrem and Edema, Left Lower Extrem
Neuro: Awake, Alert, Oriented, No Motor Deficits and Nonfocal/Grossly Intact
Psych: Calm
--- NOTE | 2023-10-12 15:46 | PN.CDI ---
CDI
- -
CDI:
Physician Documentation Request
Admit Date: 10/12/23 11:00
Dear Doctor Murtaza,
Patient admitted with acute heart failure.
10/11 Cardiology PN: 'Permanent atrial fibrillation
-Rate controlled, some slower nocturnal, on metoprolol succinate
-Oral Anticoagulation: Warfarin, INR 1.96 this morning'
10/11 Hospitalist PN: 'Persistent A-fib -Takes warfarin 6 mg every evening'
If possible, please provide further specificity regarding atrial fibrillation, such as:
Permanent atrial fibrillation - when a decision has been made to accept the presence of AF and there is no further attempt to restore or maintain sinus rhythm
Persistent atrial fibrillation - episodes of continuous AF that last more than 7 days and do not self-terminate
Other - please specify
Use of terms such as suspected, likely, concern for, or probable (associated with a specific diagnosis that is being evaluated, monitored, or treated as if it exists) are acceptable and can be coded in the inpatient setting, when documented at the
time of discharge.
Thank you,
Cayla Hodgson RN, BSN
CDI Specialist
Available via [place] text
Please use your independent medical judgment in providing your response.
[2023-10-12] MEDS: LIPITOR 20 MG PO (17:42)
[2023-10-12] MEDS: ASPIR LOW (ENTERIC COATED) 81 MG PO (21:15)
[2023-10-12] MEDS: ELIQUIS 5 MG PO (21:16)
[2023-10-12] MEDS: PROSCAR 5 MG PO (21:16)
--- NOTE | 2023-10-12 23:41 | PTCARENOTE ---
Pt still grossly incont of urine and stool- changed and new condom cath applied. Pt requesting to leave tubi bronzer on overnight- pulled down to assess skin- POC discussed- pt remains on bed alarm for forgetfulness. afib on the monitor.
[2023-10-13] VITALS (19 sets, daily range): BP systolic 71–162; BP diastolic 45–89; BMI 21.1
[2023-10-13 05:53] LABS: % Basophils 0.1 % (0-2); % Immature Granulocytes 0.8 % (0-0.5); % Monocytes 7.3 % (1.7-9.3); % Neutrophils 81.8 % (42.2-75.2); Absolute Immature Granulocytes 0.1 10^3/uL (0-0.05); Absolute Lymphocytes 0.8 10^3/uL (1.2-3.4); Absolute Monocytes 0.6 10^3/uL (0.1-0.6); Absolute Neutrophils 6.3 10^3/uL (1.4-6.5); Hematocrit 32.8 % (39.0-52.0); Hemoglobin 11.6 g/dL (13.0-18.0); Mean Corp Hgb Conc. 35.4 g/dL (33.0-37.0); Mean Corpuscular Hgb 35.4 pg (27.0-31.0); Nucleated Red Blood Cells % 0 % (-); Platelet Count 98 10^3/uL (130-400); Red Blood Cell Count 3.28 10^6/uL (4.70-6.10); Red Cell Dist. Width 15.6 % (11.5-14.5); White Blood Cell Count 7.7 10^3/uL (4.8-10.8)
[2023-10-13 05:56] LABS: Blood Urea Nitrogen 30 mg/dl (9-20); Calcium 10.3 mg/dl (8.4-10.2); Carbon Dioxide 28 mmol/L (22-30); Chloride 103 mmol/L (98-107); Estimated Creatinine Clearance 49 ml/min; Glucose 150 mg/dl (70-99); Potassium 3.8 mmol/L (3.5-5.1); Sodium 138 mmol/L (135-145); eGFR > 60.00
--- NOTE | 2023-10-13 07:49 | W.PN.CD ---
Today's Communication / Plan
-
- Diuresis with furosemide 40 mg IV twice daily
- increase Entresto
- Case management to freeman SGLT2 -> $38 -> start Farxiga
- Update echocardiogram
Impression / Plan
-
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
issues. We suspect some HFrEF
HFrEF (LVEF 40%, 2020), acute on chronic
-Diuresis with furosemide 40 mg IV twice daily
-lower extremity compression, he is agreeable
CM EF 40%
- increase Entresto
- Case management to freeman SGLT2 -> $38 -> start Farxiga
- Update echocardiogram
Permanent atrial fibrillation
-Rate controlled, some slower nocturnal, on metoprolol succinate
-Oral Anticoagulation: Warfarin, INR 1.96 this morning
-[id number]: Score at least 5 (Heart failure, HTN, age 75 or more, Vascular disease)
CAD
-PCI 2008
-Cath 01/2021: Moderate coronary artery disease in the terminal RCA and the distal LAD. Patent LAD stents.
-Continue aspirin, beta-joseph, and atorvastatin
HTN, BP above goal, follow with diuresis, will likely increase Entresto once euvolemia is achieved
Ambulatory dysfunction, multiple falls, per primary
PASQUALE stent (2010)
Non-Hodgkin's lymphoma, in remission
Splenectomy
Chronic back pain, worsened, possibly related to falls, x-ray stable
Physical Exam
Vital Signs/Labs
Vital Signs
Temp Pulse Resp BP Pulse Ox
36.8 C 71 20 162/86 96
10/13/23 07:29 10/13/23 05:00 10/13/23 07:29 10/13/23 04:52 10/13/23 07:29
10/12/23 10/13/23 10/14/23
06:59 06:59 06:59
Actual Weight 161 lb 9.581 oz 155 lb 3.287 oz
10/13/23 04:59
10/13/23 04:59
PT 22.2 Sec (11.4-14.6) H 10/12/23 03:36
INR 1.96 10/12/23 03:36
10/11/23
22:27
Uip-O-Costeqrusgh Pept 3940
Physical Exam
Constitutional: No acute distress
EENT: Anicteric and Moist mucous membranes
Cardiovascular: Systolic murmur absent, Diastolic murmur absent and JVD present
Respiratory: Respiratory effort normal
GI: Soft, Distention absent, Non tender and Normal bowel sounds
Neuro/Psych: Alert
Data Reviewed
-
Date of Service: October 13, 2023
--- NOTE | 2023-10-13 08:09 | PTCARENOTE ---
Received patient this morning resting in bed. Oriented but questioning, 'what am I supposed to do'. Explained plan of care and eventual discharge to SNF when stable. Bed alarm activated, call henderson in reach, waiting for breakfast.
[2023-10-13] MEDS: FARXIGA 10 MG PO (08:21)
[2023-10-13] MEDS: ENTRESTO 49 MG/51 MG 1 TAB PO (08:21)
[2023-10-13] MEDS: ELIQUIS 5 MG PO (08:21)
[2023-10-13] MEDS: FLOMAX 0.400000000000000022 MG PO (08:21)
[2023-10-13] MEDS: LASIX 40 MG IV ×2 (08:21→17:14)
[2023-10-13] MEDS: ZYLOPRIM 100 MG PO (08:22)
[2023-10-13] MEDS: NORVASC 2.5 MG PO (08:22)
[2023-10-13] MEDS: FLUSH (NSS) 1 FLUSH IV (08:22)
[2023-10-13] MEDS: TOPROL XL 25 MG PO (08:22)
--- NOTE | 2023-10-13 10:14 | PTCARENOTE ---
Patient had echo done at the bedside. More lethargic and mumbling in his sleep, appears disoriented and tremulous. Temp orally 98.8, rectal temp 102.1. Notified Dr. Hauser of temp and now + urine culture. Patient's Stacie telephoned when she was
unable to reach her . Telephoned her and updated her about patient's condition and plan of care.
--- NOTE | 2023-10-13 10:53 | CM ---
Chart reviewed. Patient is independent of ADLS, lives in an apartment in Independent Living at [facility]. PT evaluation recommending SNF. Referrals sent to [facility], [facility] and [facility]. Plan is for the patient to go to SNF when
medically stable. CM to follow
[2023-10-13 11:01] LABS: COVID-19 Antigen Negative (Negative)
[2023-10-13] MEDS: ROCEPHIN 1000 MG IV (12:12)
[2023-10-13] MEDS: STERILE WATER FOR INJECTION 10 ML IV (12:13)
[2023-10-13] MEDS: TYLENOL 650 MG PO (12:13)
[2023-10-13] MEDS: FLUSH (NSS) 2 FLUSH IV (12:13)
--- NOTE | 2023-10-13 12:27 | PTCARENOTE ---
Patient returned from CXR, blood cultures x 2 sent, medicated with rocephin IV and tylenol PO for his fever. Patient remains confused, bed alarm in place and activated.
--- NOTE | 2023-10-13 13:14 | PTCARENOTE ---
Patient returned from CXR, appears more confused, disoriented to place, constantly pulling at his blankets and asking for his 'wine bottle'. Patient asked how often he drinks wine and he states a glass a day. When another staff member entered room,
he again asked them to pass him his wine glass. HR in 110's-120's at rest, patient getting agitated at times and is very restless. Dr. Hauser notified of patient's confusion, behavior and fixation with his 'wine'.
--- NOTE | 2023-10-13 13:59 | CHAP ---
Msgr. Anthony Jacome of [facility] in [place] gave Alfonso the Sacrament of the Sick.
--- NOTE | 2023-10-13 14:19 | W.PN.HOSP.TC ---
Today's Communication/Plan
-
see note
Assessment / Plan
Assessment / Plan
1. Acute on chronic systolic congestive heart failure
-2D echo 12/10/2020: EF 40%, moderately reduced systolic function. Global hypokinesis, mild MR/TR. Mild dilated aortic root 3.3 cm
-Increasing leg swelling R >> L causing ambulatory dysfunction
-Denies dyspnea. Not hypoxic. Lung examination relatively clear.
-Elevated JVP with signs of lower extremity edema concerning for volume overload and heart failure exacerbation
-Patient started on IV Lasix 40 mg twice daily
-Follow weight and renal function
-Repeat echocardiogram has been ordered.
2. Generalized weakness
Ambulatory dysfunction
-Patient having difficulty lifting right leg with significant swelling
-Lower extremity venous Doppler negative
-if weakness persist post resolution of edema will need further workup
3. Fever episode
-Urine cs growing Ecoli, no dysuria/UA did not show pyuria
-Check blood cultures/chest x-ray/COVID
-Start on empiric rocephin
4. Mild cognitive impairment
-patient have episode of forgetfulness at home.
-Possibly with new fever episode patient may have worsening confusion at this point
-not on any sedative medication except home dose of hydrocodone
-Occasional alcohol use. confirmed with spouse. tremors are chronic.
-Give 4 dose of thiamine, check b12/folate/TSH in AM
5. Persistent A-fib
-Takes warfarin 6 mg every evening
-patient changed to eliquis by cards
6. Acute thrombocytopenia
-Platelet trending down 97 today. Last known baseline of 155 in
-No sign of sepsis. splenectomy h/o and should have some thrombocytosis.
-Patient on colchicine and may cause some bone marrow suppression.
7. BPH with chronic urinary incontinence
-Continue tamsulosin 0.4 mg daily, finasteride 5 mg at bedtime
-Condom catheter in place with ongoing diuretic need
8. Essential HTN - Uncontrolled
-PRN hydralazine added to regimen
-Entresto dose increased by cards
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
Hx of splenectomy
HLD
CAD/Multiple cardiac stents
Hx carotid stent
Chronic lumbar back pain
Neurostimulator in back with removal
Gout
Macular degeneration
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
DNR per patient
10/12 spouse updated over the phone.
Total time spent : 52 mins
I personally saw and examined the patient.
I have reviewed all diagnostic interpretations and treatment plans as written.
Time includes patient management by me, time spent at the patients bedside, time to review lab and imaging results, discussing patient care, documentation in the medical record, and time spent with the family or caregiver and discussing care plan
with RN/Consultants.
Anticipated Discharge: > 48 hours
Subjective/Interval History
-
Date of Service: October 13, 2023
Morning rounds patient denied of having any problems
RN reported patient to be somewhat confused later around lunchtime
Patient also having new fever -of note this was initial measured rectally
Objective Data
-
Labs:
Laboratory Results
10/13/23 10/13/23
04:59 08:24
WBC 7.7
Hgb 11.6 L
Hct 32.8 L
Plt Count 98 L
PT Cancelled
INR Cancelled
Sodium 138
Potassium 3.8
Chloride 103
Carbon Dioxide 28
BUN 30 H
Creatinine 1.1
Glucose 150 H
Calcium 10.3 H
Vital Signs:
Vital Signs
Temp Pulse Resp BP Pulse Ox
101.1 F H 116 20 139/86 94
10/13/23 11:34 10/13/23 12:26 10/13/23 11:34 10/13/23 12:26 10/13/23 11:34
I&O
10/12/23 10/13/23 10/14/23
06:59 06:59 06:59
Intake Total 480 / 480 360 / 360
Output Total 1600 / 1600 300 / 300
Balance -1120 / -1120 60 / 60
Review of Systems
-
Respiratory: Reports No Symptoms
Cardiac: Reports No Symptoms
Abdomen/GI: Reports No Symptoms
Physical Exam
-
General: Comfortable and Cachectic
HEENT: Negative Oxygen
Respiratory: Clear to Auscultation
Cardiac: Regular Rhythm and S1/S2; Negative Murmur or Rub
GI: Soft, Nontender and Nondistended
Musculoskeletal: Edema, Right Lower Extrem and Edema, Left Lower Extrem
Neuro: Awake, Alert, Oriented, No Motor Deficits and Nonfocal/Grossly Intact
Psych: Calm
[2023-10-13] MEDS: THIAMINE INJECTION 200 MG IV ×2 (17:14→21:54)
--- NOTE | 2023-10-13 18:32 | PTCARENOTE ---
Temp down to 99.2 but patient is lethargic responds to his name but quickly falls back asleep, mouth breather and placed on 2L NC. Patient's telephoned to speak with him, and was updated. Positive preliminary blood culture critical result tt to
Dr. Navarro who is covering.
[2023-10-13] MEDS: LIPITOR PO (18:39)
[2023-10-13] MEDS: ELIQUIS PO (19:37)
[2023-10-13] MEDS: ENTRESTO 49 MG/51 MG PO (19:37)
--- NOTE | 2023-10-13 19:43 | PTCARENOTE ---
Assumed care. Patient non-verbal, sleeping, appears in no distress. Family at bedside. BP low, right arm 86/56, left arm 93/50, POX 100% on room air. Dinner not eaten on tray table. Condom catheter with about 100 cc of yellow urine in bag.
--- NOTE | 2023-10-13 21:11 | PTCARENOTE ---
bladder scan great than 1200 cc. Order received to straight cath now.
--- NOTE | 2023-10-13 21:47 | PTCARENOTE ---
Straight cath for 1250cc of cloudy straw color urine. Incontinent of soft brown stool. Patient yelling out, moving legs during catheterization and positioning in bed, quickly falling back to sleep, mouth open. Held PO medications for now. Orders
recieved for rectal Tenol as needed.
[2023-10-13] MEDS: TYLENOL/FEVERALL 650 MG RECTAL (21:59)
[2023-10-13] MEDS: PROSCAR PO (22:07)
[2023-10-13] MEDS: ASPIR LOW (ENTERIC COATED) PO (22:07)
[2023-10-14] VITALS (24 sets, daily range): BP systolic 73–118; BP diastolic 49–72; PULSE 63–68; O2SAT 93–94; BMI 20.6
--- NOTE | 2023-10-14 01:16 | W.PN.UPDATE ---
Update Note
Progress Note Update
RN notified patient BP 97/54, lethargic, arousable with stimulation. Per MAR, patient did received Tamsulosin 0.4mg, Lasix 40mg IV BID, Entresto 1 tab, Metoprolol succinate 25mg, Amlodipine 2.5mg. noted EF 40% per assessment noted JVD, lungs
diminished, vital signs 100.4, 63, 97/54, 98% 2L, Bladder scan note 1200, straight cath'd 1300 by RN. Patient made aware of the hypotension and if they want further interventions as family has decided DNR. Advised to patient's Low BP
likely due to the medications received today, sepsis. Patient wants to wait till Patient's BP to be in 70's then start the Levophed.
Patient last BP 92/58 HR 70's, temp 99.4, 98% 2l.
will hold antihypertensives.
--- NOTE | 2023-10-14 04:11 | PTCARENOTE ---
Patient seems more alert, asked if he wanted a drink, he nodded his head, eyes closed, following some commands. mouth swabbed, asked to stick his tongue and he did. Mouth care provided, mouth breathing. BP 94/64, A-Fib, PVC's hr 50-70's, POX 98% on
2 liters NC. Urine remains dark straw color, cloudy, emptied bag for 100 cc. Tubigrips intact, HOB elevated 30 degrees, call henderson in reach
[2023-10-14 04:21] LABS: Hematocrit 28.2 % (39.0-52.0); Mean Corp Hgb Conc. 35.5 g/dL (33.0-37.0); Mean Corpuscular Hgb 36.4 pg (27.0-31.0); Mean Corpuscular Volume 102.5 fL (80.0-94.0); Platelet Count 71 10^3/uL (130-400); Red Blood Cell Count 2.75 10^6/uL (4.70-6.10); Red Cell Dist. Width 15.7 % (11.5-14.5); White Blood Cell Count 13.6 10^3/uL (4.8-10.8)
[2023-10-14 04:44] LABS: Blood Urea Nitrogen 45 mg/dl (9-20); Carbon Dioxide 26 mmol/L (22-30); Chloride 103 mmol/L (98-107); Estimated Creatinine Clearance 32 ml/min; Glucose 92 mg/dl (70-99); Potassium 3.5 mmol/L (3.5-5.1); Sodium 137 mmol/L (135-145); eGFR 39.02
[2023-10-14 05:01] LABS: Free T4 1.54 ng/dl (0.78-2.19)
[2023-10-14 05:51] LABS: Folate 2.4 ng/ml (2.76-20); Vitamin B12 210 pg/ml (239-931)
--- NOTE | 2023-10-14 07:52 | W.PN.CD ---
Today's Communication / Plan
-
hold lasix and monitor fluid status daily
continue ABX for E coli bacteremia
Impression / Plan
-
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
issues. We suspect some HFrEF
E coli sepsis:
- + urine and blood cxs
-ABX (ceftriaxone initiated)
- Suspect this is cause of his lethargy and this should improve over next 24 hrs
HFrEF (LVEF 40%, 2020), acute on chronic
-- He now appears BONE DRY- will hold Lasix
- No LE edema on exam
CM EF 40%
- Case management to freeman SGLT2 -> $38 -> start Farxiga
-ECHO yesterday showed EF 40-45%, mild to mod MR, PA HTN (64)
Permanent atrial fibrillation
-Rate controlled, some slower nocturnal, on metoprolol succinate
-Oral Anticoagulation: started on eliquis 5mg bid
-[id number]: Score at least 5 (Heart failure, HTN, age 75 or more, Vascular disease)
CAD
-PCI 2008
-Cath 01/2021: Moderate coronary artery disease in the terminal RCA and the distal LAD. Patent LAD stents.
-Continue aspirin, beta-joseph, and atorvastatin
HTN, BP above goal, follow with diuresis, will likely increase Entresto once euvolemia is achieved
Ambulatory dysfunction, multiple falls, per primary
PASQUALE stent (2010)
Non-Hodgkin's lymphoma, in remission
Splenectomy
Chronic back pain, worsened, possibly related to falls, x-ray stable
Physical Exam
Vital Signs/Labs
Vital Signs
Temp Pulse Resp BP Pulse Ox
98.0 F 76 28 118/72 99
10/14/23 03:17 10/14/23 07:00 10/14/23 03:17 10/14/23 07:00 10/14/23 07:00
10/13/23 10/14/23 10/15/23
06:59 06:59 06:59
Actual Weight 155 lb 3.287 oz 151 lb 10.848 oz
10/14/23 03:46
10/14/23 03:46
PT Cancelled 10/13/23 08:24
INR Cancelled 10/13/23 08:24
TSH 0.20 uIU/ml (0.47-4.68) L 10/14/23 03:46
Free T4 1.54 ng/dl (0.78-2.19) 10/14/23 03:46
10/11/23
22:27
Ulp-X-Qqxlvasqktx Pept 3940
Physical Exam
Constitutional: No acute distress and Comfortable
Cardiovascular: Rhythm & rate is regular, S1S2 is normal and Murmur/rub/gallop absent
Respiratory: Respiratory effort normal and Lungs clear to auscul.
Neuro/Psych: Motor deficits absent and Other (lethargic but arousable and appropriate when awakened)
Data Reviewed
-
Date of Service: October 14, 2023
[2023-10-14] MEDS: FLOMAX 0.400000000000000022 MG PO (09:34)
[2023-10-14] MEDS: TOPROL XL 25 MG PO (09:34)
[2023-10-14] MEDS: ELIQUIS 5 MG PO ×2 (09:34→20:04)
[2023-10-14] MEDS: FLUSH (NSS) 1 FLUSH IV (09:35)
[2023-10-14] MEDS: THIAMINE INJECTION 200 MG IV ×2 (09:41→20:04)
[2023-10-14] MEDS: FARXIGA 10 MG PO (09:42)
[2023-10-14] MEDS: NORVASC PO (10:00)
[2023-10-14] MEDS: ENTRESTO 49 MG/51 MG PO (10:01)
--- NOTE | 2023-10-14 10:01 | W.PN.HOSP.TC ---
Today's Communication/Plan
-
see note
Assessment / Plan
Assessment / Plan
1. Acute on chronic systolic congestive heart failure
-2D echo 12/10/2020: EF 40%, moderately reduced systolic function. Global hypokinesis, mild MR/TR. Mild dilated aortic root 3.3 cm
-Increasing leg swelling R >> L causing ambulatory dysfunction
-Denies dyspnea. Not hypoxic. Lung examination relatively clear.
-Elevated JVP with signs of lower extremity edema concerning for volume overload and heart failure exacerbation
-Was IV Lasix 40 mg twice daily - new GABRIELA with cr 1.7 and placed on hold
-TTE this admit showing midrange EF 40-45%, mod MR, PAP of 64mmHg
2. Generalized weakness
Ambulatory dysfunction
-Patient having difficulty lifting right leg with significant swelling
-Lower extremity venous Doppler negative
-PT recommended rehab and patient agreeable
3. Ecoli bacteremia
-bacteremia likely from urinary source.
-Urine cs growing Ecoli, no dysuria/UA did not show pyuria
-CXR showing pulm edema. covid neg.
-Susceptibility reviewed, continue on Rocephin.
-Renal bladder us ordered. denies h/o of stone/hydro/pyelo.
4. Mild cognitive impairment
TME - resolved
-patient have episode of forgetfulness at home.
-Possibly with new fever episode patient may have worsening confusion at this point
-not on any sedative medication except home dose of hydrocodone
-Occasional alcohol use. confirmed with spouse. tremors are chronic.
5. Vitamin B12 deficiency
Folate deficiency
-B12 210, Folate 2.4
-start IM B12 inj 1000mcg weekly
-Start oral folate replacement
-No spinal imaging to confirm but B12 def may be playing role in memory issue/weakness beside other thing
6. Persistent A-fib
-Takes warfarin 6 mg every evening
-patient changed to eliquis by cards
6. Acute thrombocytopenia
-secondary to ecoli bacteremia
-Monitor plt count. Last known baseline of 155 in
-Patient on colchicine and may cause some bone marrow suppression as well.
7. BPH with chronic urinary incontinence
Urinary retention
-Continue tamsulosin 0.4 mg daily, finasteride 5 mg at bedtime
-Condom catheter in place with ongoing diuretic need
-required to be striaght cath for 1.1 L urine, if persist will need haynes
8. Essential HTN - Uncontrolled
-PRN hydralazine added to regimen
-Entresto dose increased by cards
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
Hx of splenectomy
HLD
CAD/Multiple cardiac stents
Hx carotid stent
Chronic lumbar back pain
Neurostimulator in back with removal
Gout
Macular degeneration
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
DNR per patient
10/12 spouse updated over the phone.
10/13 care plan discussed with daughter at bedside
Total time spent : 53 mins
Anticipated Discharge: > 48 hours
Subjective/Interval History
-
Date of Service: October 14, 2023
mentation better
afebrile overnight
required to be straight cath for 1.1L urine
Objective Data
-
Labs:
Laboratory Results
10/14/23
03:46
WBC 13.6 H
Hgb 10.0 L
Hct 28.2 L
Plt Count 71 L D
Sodium 137
Potassium 3.5
Chloride 103
Carbon Dioxide 26
BUN 45 H
Creatinine 1.7 H
Glucose 92
Calcium 10.0
Vital Signs:
Vital Signs
Temp Pulse Resp BP Pulse Ox
97.9 F 60 18 118/72 98
10/14/23 08:01 10/14/23 08:01 10/14/23 08:01 10/14/23 07:00 10/14/23 08:01
I&O
10/13/23 10/14/23 10/15/23
06:59 06:59 06:59
Intake Total 480 / 480 360 / 360
Output Total 1600 / 1600 1850 / 1850
Balance -1120 / -1120 -1490 / -1490
Review of Systems
-
Respiratory: Reports No Symptoms
Cardiac: Reports No Symptoms
Abdomen/GI: Reports No Symptoms
Physical Exam
-
General: Comfortable and Cachectic
HEENT: Negative Oxygen
Respiratory: Clear to Auscultation
Cardiac: Regular Rhythm and S1/S2; Negative Murmur or Rub
GI: Soft, Nontender and Nondistended
Musculoskeletal: Edema, Right Lower Extrem and Edema, Left Lower Extrem
Neuro: Awake, Alert, Oriented, No Motor Deficits and Nonfocal/Grossly Intact
Psych: Calm
--- NOTE | 2023-10-14 11:44 | SUR.PHASEI ---
Received patient this morning resting in bed, sleepy but arousable. Mouth very dry, but able to answer my questions and is oriented x 3. The patient's daughter came in to visit and assisted him with his breakfast. Cardiology and the hospitalist in
to see the patient, medications adjusted. Patient incontinent of a large amount of loose/soft brown stool but very little urine output in the condom catheter drainage bag. Patient is ordered a renal and bladder ultrasound.
[2023-10-14] MEDS: CYANOCOBALAMIN 1000 MCG IM (12:20)
[2023-10-14] MEDS: ROCEPHIN 1000 MG IV (12:21)
[2023-10-14] MEDS: STERILE WATER FOR INJECTION 10 ML IV (12:21)
[2023-10-14] MEDS: FLUSH (NSS) 2 FLUSH IV (12:22)
[2023-10-14] MEDS: ZYLOPRIM 100 MG PO (12:37)
[2023-10-14] MEDS: FOLVITE 1 MG PO (12:38)
--- NOTE | 2023-10-14 13:37 | CM ---
Chart reviewed. Patient is independent of ADLS, lives with his in Independent Living at [facility], uses a rollator and a motorized scooter. PT evaluation recommending SNF. Referrals sent to [facility] at [facility], [facility] and
[facility]. Patient and his prefer [facility]. Patient currently with E Coli Bacteremia requiring at least 48 hours of antibiotics. Plan is for possible DC on Wednesday. Follow up with Donya at [facility] to see bed availability. CM to
follow
--- NOTE | 2023-10-14 15:51 | PTCARENOTE ---
Patient sleepy but arousable and oriented. Woke him up to eat lunch and tolerated well. Still no urine output in haynes back, condom cath in place. Patient bladder scanned for 209ml. Patient sent for renal ultrasound. Telephoned 3W and gave report to
Shani. Telephoned patient's son Manjeet and notified him of patient's transfer after unable to contact the patient's and daughter. The patient's Stacie is now here and updated. PT/OT assisted with standing patient at the bedside and
transferring him to the stretcher for ultrasound. Patient required assist of three with transfer and was unable to support his weight with rolling walker, right knee was buckling. Belongings taken to room 334 by the patient's and her friend.
--- NOTE | 2023-10-14 16:39 | PTCARENOTE ---
1630 Pt received from [facility] [[email or web address]] via stretcher. Pt AAOX3. Accompanied by family.
[2023-10-14] MEDS: LIPITOR 20 MG PO (18:11)
[2023-10-14] MEDS: PROSCAR 5 MG PO (22:12)
[2023-10-14] MEDS: ASPIR LOW (ENTERIC COATED) 81 MG PO (22:12)
[2023-10-15 03:05] VITALS: BP 113/92
--- NOTE | 2023-10-15 03:28 | PTCARENOTE ---
Pt with no void so far this shift. Bladder scanned for 446 mL. Encouraged to void, pt unable. Straight cathed using sterile technique for 500 mL tea/cloudy urine. Condom cath not reapplied at this time at pt request. Plan of care ongoing.
[2023-10-15 05:41] VITALS: BMI 21.4
[2023-10-15 07:00] VITALS: BP 96/54
[2023-10-15 07:28] LABS: Hematocrit 27.8 % (39.0-52.0); Hemoglobin 9.8 g/dL (13.0-18.0); Mean Corp Hgb Conc. 35.3 g/dL (33.0-37.0); Mean Corpuscular Hgb 35.9 pg (27.0-31.0); Mean Corpuscular Volume 101.8 fL (80.0-94.0); Red Blood Cell Count 2.73 10^6/uL (4.70-6.10); Red Cell Dist. Width 16.1 % (11.5-14.5); White Blood Cell Count 16.6 10^3/uL (4.8-10.8)
[2023-10-15 07:45] LABS: Blood Urea Nitrogen 63 mg/dl (9-20); Calcium 9.6 mg/dl (8.4-10.2); Carbon Dioxide 28 mmol/L (22-30); Chloride 101 mmol/L (98-107); Estimated Creatinine Clearance 30 ml/min; Glucose 103 mg/dl (70-99); Platelet Count 59 10^3/uL (130-400); Potassium 3.6 mmol/L (3.5-5.1); Sodium 135 mmol/L (135-145); eGFR 36.43
[2023-10-15] MEDS: FOLVITE 1 MG PO (08:46)
[2023-10-15] MEDS: FLOMAX 0.400000000000000022 MG PO (08:46)
[2023-10-15] MEDS: ELIQUIS 5 MG PO (08:46)
[2023-10-15] MEDS: ZYLOPRIM 100 MG PO (08:46)
[2023-10-15] MEDS: FARXIGA 10 MG PO (08:46)
[2023-10-15] MEDS: TOPROL XL PO ×2 (08:50→08:56)
[2023-10-15] MEDS: NORVASC PO (09:04)
--- NOTE | 2023-10-15 10:08 | W.PN.CD ---
Today's Communication / Plan
-
-Holding Entresto and Lasix for now, given sepsis.
-Will discontinue amlodipine (no benefit in CHF).
Impression / Plan
-
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
issues. We suspect some HFrEF
E coli sepsis:
- + urine and blood cxs
-ABX (ceftriaxone initiated)
-White blood cell count increased today, but appears relatively stable clinically.
-Continue antibiotics as per primary team.
Chronic HFrEF (LVEF 40%, 2020):
-Holding Entresto and Lasix for now, given sepsis.
-Case management to freeman SGLT2 -> $38 -> started on Farxiga
-ECHO showed EF 40-45%, mild to mod MR, PA HTN (64)
-Will discontinue amlodipine (no benefit in CHF).
Permanent atrial fibrillation
-Rate controlled, some slower nocturnal, on metoprolol succinate
-Oral Anticoagulation: started on eliquis 5mg bid
-[id number]: Score at least 5 (Heart failure, HTN, age 75 or more, Vascular disease)
CAD
-PCI 2008
-Cath 01/2021: Moderate coronary artery disease in the terminal RCA and the distal LAD. Patent LAD stents.
-Continue aspirin, beta-joseph, and atorvastatin
HTN:
-Resume and Lasix Entresto once sepsis is resolved.
Ambulatory dysfunction, multiple falls, per primary
PASQUALE stent (2010)
Non-Hodgkin's lymphoma, in remission
Splenectomy
Chronic back pain, worsened, possibly related to falls, x-ray stable
Physical Exam
Vital Signs/Labs
Vital Signs
Temp Pulse Resp BP Pulse Ox
97.6 F 70 18 108/57 97
10/15/23 07:00 10/15/23 08:56 10/15/23 07:00 10/15/23 08:56 10/15/23 07:00
10/14/23 10/15/23 10/16/23
06:59 06:59 06:59
Actual Weight 68.8 kg 71.577 kg
10/15/23 07:10
10/15/23 07:10
PT Cancelled 10/13/23 08:24
INR Cancelled 10/13/23 08:24
TSH 0.20 uIU/ml (0.47-4.68) L 10/14/23 03:46
Free T4 1.54 ng/dl (0.78-2.19) 10/14/23 03:46
10/11/23
22:27
Plo-V-Hmupwvzywox Pept 3940
Physical Exam
Constitutional: No acute distress and Comfortable
EENT: Anicteric
Cardiovascular: Rhythm/rate is irregular, Pedal edema present (1+), Systolic murmur present (2/6) and S1S2 is normal
Respiratory: Respiratory effort normal and Crackles Present
GI: Soft
Neuro/Psych: AO x 3
Other: Skin (Warm, dry)
Data Reviewed
-
Date of Service: October 15, 2023
Echo: Report Reviewed by me (EF 40%)
Medical Tests (PFT, Pathology etc): Discussed with Nurse and Discussed with Family (Son (Hany) at bedside, (Stacie) on the phone)
Labs: Labs Reviewed by me
[2023-10-15] MEDS: ZOSYN 50 IV ×3 (11:30→23:59)
[2023-10-15 11:33] VITALS: BP 90/50
--- NOTE | 2023-10-15 13:35 | W.PN.HOSP.TC ---
Today's Communication/Plan
-
see note
Assessment / Plan
Assessment / Plan
1. Acute on chronic systolic congestive heart failure
-2D echo 12/10/2020: EF 40%, moderately reduced systolic function. Global hypokinesis, mild MR/TR. Mild dilated aortic root 3.3 cm
-Increasing leg swelling R >> L causing ambulatory dysfunction
-Denies dyspnea. Not hypoxic. Lung examination relatively clear.
-Elevated JVP with signs of lower extremity edema concerning for volume overload and heart failure exacerbation
-TTE this admit showing midrange EF 40-45%, mod MR, PAP of 64mmHg
-Renal function remains elevated, continue hold lasix.
2. Generalized weakness
Ambulatory dysfunction
-Patient having difficulty lifting right leg with significant swelling
-Lower extremity venous Doppler negative
-PT recommended rehab and patient agreeable
3. E-coli bacteremia
-bacteremia likely from urinary source. GB US showing wall thickening, no n/v. no abd pain.
-Urine cs growing Ecoli, no dysuria/UA did not show pyuria
-CXR showing pulmonary edema. covid neg.
-Susceptibility reviewed, continue on Rocephin.
-Renal bladder us negative hydro/stone
-Repeat blood cs ordered
-WBC uptrending, broaden the coverage for next 48 hours with Zosyn to cover anaerobic possible drug-resistant organisms as well.
4. Mild cognitive impairment
TME - resolved
-patient have episode of forgetfulness at home.
-Possibly with new fever episode patient may have worsening confusion at this point
-not on any sedative medication except home dose of hydrocodone
-Occasional alcohol use. confirmed with spouse. tremors are chronic.
5. Vitamin B12 deficiency
Folate deficiency
-B12 210, Folate 2.4
-start IM B12 inj 1000mcg weekly
-Start oral folate replacement
-No spinal imaging to confirm but B12 def may be playing role in memory issue/weakness beside other thing
6. Persistent A-fib
-Takes warfarin 6 mg every evening
-patient changed to eliquis by cards
6. Acute thrombocytopenia
-secondary to ecoli bacteremia
-Monitor plt count. Last known baseline of 155 in
-Patient on colchicine and may cause some bone marrow suppression as well.
7. BPH with chronic urinary incontinence
Urinary retention
-Continue tamsulosin 0.4 mg daily, finasteride 5 mg at bedtime
-Condom catheter in place with ongoing diuretic need
-required to be striaght cath for 1.1 L urine, if persist will need haynes
8. Essential HTN - Uncontrolled
-PRN hydralazine added to regimen
-Entresto dose increased by cards
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
Hx of splenectomy
HLD
CAD/Multiple cardiac stents
Hx carotid stent
Chronic lumbar back pain
Neurostimulator in back with removal
Gout
Macular degeneration
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
DNR per patient
10/12 spouse updated over the phone.
10/13 care plan discussed with daughter at bedside
Anticipated Discharge: > 48 hours
Subjective/Interval History
-
Date of Service: October 15, 2023
Resting comfortably in bed
no abd pain/nausea/vomiting
not dyspnic
Objective Data
-
Labs:
Laboratory Results
10/15/23
07:10
WBC 16.6 H
Hgb 9.8 L
Hct 27.8 L
Plt Count 59 L
Sodium 135
Potassium 3.6
Chloride 101
Carbon Dioxide 28
BUN 63 H
Creatinine 1.8 H
Glucose 103 H
Calcium 9.6
Vital Signs:
Vital Signs
Temp Pulse Resp BP Pulse Ox
97.6 F 70 16 90/50 97
10/15/23 11:00 10/15/23 08:56 10/15/23 11:00 10/15/23 11:33 10/15/23 11:00
I&O
10/14/23 10/15/23 10/16/23
06:59 06:59 06:59
Intake Total 360 / 360 720 / 720
Output Total 1850 / 1850 500 / 500
Balance -1490 / -1490 220 / 220
Review of Systems
-
Respiratory: Reports No Symptoms
Cardiac: Reports No Symptoms
Abdomen/GI: Reports No Symptoms
Physical Exam
-
General: Comfortable and Cachectic
HEENT: Negative Oxygen
Respiratory: Clear to Auscultation
Cardiac: Regular Rhythm and S1/S2; Negative Murmur or Rub
GI: Soft, Nontender and Nondistended
Musculoskeletal: Edema, Right Lower Extrem and Edema, Left Lower Extrem
Neuro: Awake, Alert, Oriented, No Motor Deficits and Nonfocal/Grossly Intact
Psych: Calm
[2023-10-15 15:00] VITALS: BP 89/51
--- NOTE | 2023-10-15 15:13 | CM ---
Case management following for d/c planning
Chart reviewed
Pt accepted pending bed availability on day of d/c at [facility] [place]
[facility]onya from [facility] - can accept - call Wednesday for Bed availibilty
Plan - snf - [facility] when medically stable
[2023-10-15] MEDS: LIPITOR 20 MG PO (18:04)
[2023-10-15 19:15] VITALS: BP 96/47
[2023-10-15] MEDS: PROSCAR 5 MG PO (21:02)
[2023-10-15] MEDS: ELIQUIS 2.5 MG PO (21:02)
[2023-10-15] MEDS: ASPIR LOW (ENTERIC COATED) 81 MG PO (21:02)
[2023-10-15 23:10] VITALS: BP 103/51
[2023-10-15] MEDS: MELATONIN 3 MG PO (23:58)
[2023-10-16 03:50] VITALS: BP 99/58
[2023-10-16] MEDS: ZOSYN 50 IV ×3 (05:31→17:34)
[2023-10-16 06:00] VITALS: BMI 21.2
[2023-10-16 06:47] LABS: Hematocrit 26.7 % (39.0-52.0); Hemoglobin 9.4 g/dL (13.0-18.0); Mean Corp Hgb Conc. 35.2 g/dL (33.0-37.0); Mean Corpuscular Hgb 35.5 pg (27.0-31.0); Mean Corpuscular Volume 100.8 fL (80.0-94.0); Platelet Count 54 10^3/uL (130-400); Red Blood Cell Count 2.65 10^6/uL (4.70-6.10); Red Cell Dist. Width 15.5 % (11.5-14.5); White Blood Cell Count 14.9 10^3/uL (4.8-10.8)
[2023-10-16 07:10] VITALS: BP 119/72
[2023-10-16 07:12] LABS: Blood Urea Nitrogen 73 mg/dl (9-20); Calcium 9.3 mg/dl (8.4-10.2); Carbon Dioxide 23 mmol/L (22-30); Chloride 101 mmol/L (98-107); Estimated Creatinine Clearance 34 ml/min; Glucose 100 mg/dl (70-99); Potassium 3.5 mmol/L (3.5-5.1); Sodium 131 mmol/L (135-145); eGFR 41.96
[2023-10-16] MEDS: ELIQUIS 2.5 MG PO ×2 (08:20→21:07)
[2023-10-16] MEDS: FARXIGA 10 MG PO (08:20)
[2023-10-16] MEDS: FOLVITE 1 MG PO (08:20)
[2023-10-16] MEDS: ZYLOPRIM 100 MG PO (08:20)
[2023-10-16] MEDS: FLOMAX 0.400000000000000022 MG PO (08:20)
[2023-10-16] MEDS: TOPROL XL 25 MG PO (08:20)
--- NOTE | 2023-10-16 10:45 | W.PN.HOSP.TC ---
Today's Communication/Plan
-
see note
Assessment / Plan
Assessment / Plan
1. Acute on chronic systolic congestive heart failure
-2D echo 12/10/2020: EF 40%, moderately reduced systolic function. Global hypokinesis, mild MR/TR. Mild dilated aortic root 3.3 cm
-Increasing leg swelling R >> L causing ambulatory dysfunction
-Denies dyspnea. Not hypoxic. Lung examination relatively clear.
-Elevated JVP with signs of lower extremity edema concerning for volume overload and heart failure exacerbation
-TTE this admit showing midrange EF 40-45%, mod MR, PAP of 64mmHg
-continue holding Lasix/Entresto
2. GABRIELA
-Baseline creatinine 1.1.
-Currently in GABRIELA with elevated creatinine max of 1.8 this admission.
-Diuretics/Entresto on hold.
-Renal ultrasound did not show any acute structural issues
-Renal function trending down slowly today. cr 1.6
3. E-coli bacteremia
-bacteremia likely from urinary source. GB US showing wall thickening, no n/v. no abd pain.
-Urine cs growing Ecoli, no dysuria/UA did not show pyuria
-CXR showing pulmonary edema. covid neg.
-Susceptibility reviewed, continue on Rocephin.
-Renal bladder us negative hydro/stone
-Repeat blood cs collected - f/u report
-Antibiotic coverage broadened due to worsening leukocytosis despite being on Rocephin based on culture information. Will change back once clinically better.
4. Mild cognitive impairment
TME - resolved
-patient have episode of forgetfulness at home.
-Possibly with new fever episode patient may have worsening confusion at this point
-not on any sedative medication except home dose of hydrocodone
-Occasional alcohol use. confirmed with spouse. tremors are chronic.
5. Vitamin B12 deficiency
Folate deficiency
-B12 210, Folate 2.4
-start IM B12 inj 1000mcg weekly, got dose 1 on .
-Start oral folate replacement
-No spinal imaging to confirm but B12 def may be playing role in memory issue/weakness beside other thing
6. Persistent A-fib
-patient changed to eliquis by cards this admit, was on warfarin.
-On low-dose of Eliquis 2.5 mg twice daily due to worsening renal function. Can be resumed back on 5 mg twice daily once appropriate.
7. Acute thrombocytopenia
-secondary to ecoli bacteremia
-Monitor plt count. Last known baseline of 155 in
-Patient on colchicine and may cause some bone marrow suppression as well.
8. BPH with chronic urinary incontinence
Urinary retention
-Continue tamsulosin 0.4 mg daily, finasteride 5 mg at bedtime
-Condom catheter in place with ongoing diuretic need
-required to be straight cath for 1.1 L urine, if persist will need haynes
9. Essential HTN - Uncontrolled
-PRN hydralazine added to regimen
-on toprol xl 25mg/d
-Entresto hel for now. needs to be resumed once renal function better.
9.Generalized weakness
Ambulatory dysfunction
-Patient having difficulty lifting right leg with significant swelling
-Lower extremity venous Doppler negative
-PT recommended rehab and patient agreeable
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
Hx of splenectomy
HLD
CAD/Multiple cardiac stents
Hx carotid stent
Chronic lumbar back pain
Neurostimulator in back with removal
Gout
Macular degeneration
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
DNR per patient
10/12 spouse updated over the phone.
10/13 care plan discussed with daughter at bedside
Anticipated Discharge: > 48 hours
Subjective/Interval History
-
Date of Service: October 16, 2023
Patient afebrile overnight
Subjective looking better
Off of oxygen
Objective Data
-
Labs:
Laboratory Results
10/16/23
05:44
WBC 14.9 H
Hgb 9.4 L
Hct 26.7 L
Plt Count 54 L
Sodium 131 L
Potassium 3.5
Chloride 101
Carbon Dioxide 23
BUN 73 H
Creatinine 1.6 H
Glucose 100 H
Calcium 9.3
Vital Signs:
Vital Signs
Temp Pulse Resp BP Pulse Ox
98.0 F 66 16 119/72 96
10/16/23 07:10 10/16/23 08:20 10/16/23 07:10 10/16/23 08:20 10/16/23 07:10
I&O
10/15/23 10/16/23 10/17/23
06:59 06:59 06:59
Intake Total 720 / 720 1220 / 1220
Output Total 500 / 500 960 / 960
Balance 220 / 220 260 / 260
Review of Systems
-
Respiratory: Reports No Symptoms
Cardiac: Reports No Symptoms
Abdomen/GI: Reports No Symptoms
Physical Exam
-
General: Comfortable and Cachectic
HEENT: Negative Oxygen
Respiratory: Clear to Auscultation
Cardiac: Regular Rhythm and S1/S2; Negative Murmur or Rub
GI: Soft, Nontender and Nondistended
Musculoskeletal: Edema, Right Lower Extrem and Edema, Left Lower Extrem
Neuro: Awake, Alert, Oriented, No Motor Deficits and Nonfocal/Grossly Intact
Psych: Calm
[2023-10-16 11:55] VITALS: BP 90/41
--- NOTE | 2023-10-16 12:14 | W.PN.CD ---
Addendum entered and electronically signed by Augusta Arriola MD 10/16/23 17:53:
I saw and examined the patient.
The CLINICAL CYTOPATHOLOGIST's note was reviewed and I agree with the note.
Comment: He is feeling better today, lying flat comfortably. On exam lungs cta, rrr, no le edema. No lasix today. Cotninue to hold entresto agree with reduction of bb as bp is soft in addition to bb.
Original Note:
Today's Communication / Plan
-
Monitor BP's eventual restart entresto once renal function and BP allow
reduce metoprolol to 12.5mg daily given bradycardia.
Impression / Plan
-
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
issues. We suspect some HFrEF
E coli sepsis:
- + urine and blood cxs
-ABX (ceftriaxone initiated)
-Continue antibiotics as per primary team.
Chronic HFrEF (LVEF 40%, 2020):
-meds were held with sepsis , BP starting to improve. Monitor and possible restart tomorrow.
-Case management to [facility] SGLT2 -> $38 -> started on Farxiga
-ECHO showed EF 40-45%, mild to mod MR, PA HTN (64)
-weights stable since admit. If anything down initially . 10/10 wt 73 kg, 10/13 68.8 kg, 10/15 70.9 kg
Permanent atrial fibrillation
-Rate controlled, bradycardia at times, PVC's will reduce metoprolol and monitor HR's.
-Oral Anticoagulation: given age and renal function he is on eliquis 2.5mg BID
-[id number]: Score at least 5 (Heart failure, HTN, age 75 or more, Vascular disease)
CAD
-PCI 2991, 2008
-Cath 01/2021: Moderate coronary artery disease in the terminal RCA and the distal LAD. Patent LAD stents.
-Continue aspirin, beta-joseph, and atorvastatin
HTN:
- was hypotensive so meds were held. BP's slowly improving.
Ambulatory dysfunction, multiple falls, per primary
PASQUALE stent (2010)
Non-Hodgkin's lymphoma, in remission
Splenectomy
Chronic back pain, worsened, possibly related to falls, x-ray stable
Physical Exam
Vital Signs/Labs
Vital Signs
Temp Pulse Resp BP Pulse Ox
98.5 F 57 14 90/41 100
10/16/23 11:55 10/16/23 11:55 10/16/23 11:55 10/16/23 11:55 10/16/23 11:55
10/15/23 10/16/23 10/17/23
06:59 06:59 06:59
Actual Weight 71.577 kg 70.942 kg
10/16/23 05:44
10/16/23 05:44
PT Cancelled 10/13/23 08:24
INR Cancelled 10/13/23 08:24
TSH 0.20 uIU/ml (0.47-4.68) L 10/14/23 03:46
Free T4 1.54 ng/dl (0.78-2.19) 10/14/23 03:46
10/11/23
22:27
Bgl-T-Pgnjmogxaqu Pept 3940
Physical Exam
Constitutional: No acute distress
Cardiovascular: Rhythm/rate is irregular and Pedal edema present (mild ankle, tubigrips in place )
Respiratory: Respiratory effort normal and Lungs clear to auscul. ( decreased )
Neuro/Psych: AO x 3
Data Reviewed
-
Date of Service: October 16, 2023
EKG: Other (Tele: SB 50-60's brief 40's )
Labs: Labs Reviewed by me
[2023-10-16 15:20] VITALS: BP 114/55
[2023-10-16] MEDS: LIPITOR 20 MG PO (17:34)
[2023-10-16 19:15] VITALS: BP 112/58
[2023-10-16] MEDS: ASPIR LOW (ENTERIC COATED) 81 MG PO (21:07)
[2023-10-16] MEDS: PROSCAR 5 MG PO (21:07)
[2023-10-16 23:25] VITALS: BP 131/69
[2023-10-17] MEDS: ZOSYN 50 IV ×4 (00:28→17:25)
[2023-10-17 03:29] VITALS: BP 123/65
[2023-10-17 06:00] VITALS: BMI 21.3
[2023-10-17 06:33] LABS: Hematocrit 29.7 % (39.0-52.0); Hemoglobin 10.8 g/dL (13.0-18.0); Mean Corp Hgb Conc. 36.4 g/dL (33.0-37.0); Mean Corpuscular Hgb 35.9 pg (27.0-31.0); Mean Corpuscular Volume 98.7 fL (80.0-94.0); Platelet Count 61 10^3/uL (130-400); Red Blood Cell Count 3.01 10^6/uL (4.70-6.10); Red Cell Dist. Width 15.4 % (11.5-14.5); White Blood Cell Count 12.9 10^3/uL (4.8-10.8)
[2023-10-17 06:42] LABS: Blood Urea Nitrogen 70 mg/dl (9-20); Calcium 9.5 mg/dl (8.4-10.2); Carbon Dioxide 28 mmol/L (22-30); Chloride 99 mmol/L (98-107); Estimated Creatinine Clearance 34 ml/min; Glucose 115 mg/dl (70-99); Potassium 3.5 mmol/L (3.5-5.1); Sodium 133 mmol/L (135-145); eGFR 41.96
[2023-10-17 07:00] VITALS: BP 136/72
[2023-10-17] MEDS: FLOMAX 0.400000000000000022 MG PO (08:52)
[2023-10-17] MEDS: FOLVITE 1 MG PO (08:52)
[2023-10-17] MEDS: ELIQUIS 2.5 MG PO ×2 (08:53→20:39)
[2023-10-17] MEDS: FARXIGA 10 MG PO (08:53)
[2023-10-17] MEDS: TOPROL XL 12.5 MG PO (08:53)
[2023-10-17] MEDS: ZYLOPRIM 100 MG PO (08:53)
[2023-10-17 11:00] VITALS: BP 126/62
--- NOTE | 2023-10-17 11:41 | W.PN.HOSP.TC ---
Today's Communication/Plan
-
see note
Assessment / Plan
Assessment / Plan
1. Acute on chronic systolic congestive heart failure
-2D echo 12/10/2020: EF 40%, moderately reduced systolic function. Global hypokinesis, mild MR/TR. Mild dilated aortic root 3.3 cm
-Increasing leg swelling R >> L causing ambulatory dysfunction
-Denies dyspnea. Not hypoxic. Lung examination relatively clear.
-Elevated JVP with signs of lower extremity edema concerning for volume overload and heart failure exacerbation
-TTE this admit showing midrange EF 40-45%, mod MR, PAP of 64mmHg
-continue holding Lasix/Entresto
2. GABRIELA
-Baseline creatinine 1.1.
-Currently in GABRIELA with elevated creatinine max of 1.8 this admission.
-Diuretics/Entresto on hold.
-Renal ultrasound did not show any acute structural issues
-Renal function trending down slowly today remains cr 1.6
-ordered haynes catheter as may have some post renal component as well.
3. E-coli bacteremia
-bacteremia likely from urinary source. GB US showing wall thickening, no n/v. no abd pain.
-Urine cs growing Ecoli, no dysuria/UA did not show pyuria
-CXR showing pulmonary edema. covid neg.
-Susceptibility reviewed, continue on Rocephin.
-Renal bladder us negative hydro/stone
-Repeat blood cs collected - f/u report
-Antibiotic coverage broadened due to worsening leukocytosis despite being on Rocephin based on culture information. Will change back once clinically better.
4. Mild cognitive impairment
TME - resolved
-patient have episode of forgetfulness at home.
-Possibly with new fever episode patient may have worsening confusion at this point
-not on any sedative medication except home dose of hydrocodone
-Occasional alcohol use. confirmed with spouse. tremors are chronic.
5. Vitamin B12 deficiency
Folate deficiency
-B12 210, Folate 2.4
-start IM B12 inj 1000mcg weekly, got dose 1 on .
-Start oral folate replacement
-No spinal imaging to confirm but B12 def may be playing role in memory issue/weakness beside other thing
6. Persistent A-fib
-patient changed to eliquis by cards this admit, was on warfarin.
-On low-dose of Eliquis 2.5 mg twice daily due to worsening renal function. Can be resumed back on 5 mg twice daily once appropriate.
7. Acute thrombocytopenia
-secondary to ecoli bacteremia
-Monitor plt count. Last known baseline of 155 in
-Patient on colchicine and may cause some bone marrow suppression as well.
8. BPH with chronic urinary incontinence
Urinary retention
-Continue tamsulosin 0.4 mg daily, finasteride 5 mg at bedtime
-Condom catheter in place with ongoing diuretic need
-Patient requiring repeated catheterization with volume being 300 to 500 mL range.
-With ongoing GABRIELA will place Haynes catheter to help recovery of any postrenal component.
9. Essential HTN - Uncontrolled
-PRN hydralazine added to regimen
-on toprol xl 25mg/d
-Entresto hel for now. needs to be resumed once renal function better.
9.Generalized weakness
Ambulatory dysfunction
-Patient having difficulty lifting right leg with significant swelling
-Lower extremity venous Doppler negative
-PT recommended rehab and patient agreeable
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
Hx of splenectomy
HLD
CAD/Multiple cardiac stents
Hx carotid stent
Chronic lumbar back pain
Neurostimulator in back with removal
Gout
Macular degeneration
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
DNR per patient
10/12 spouse updated over the phone.
10/13 care plan discussed with daughter at bedside
Anticipated Discharge: 24 - 48 hours
Subjective/Interval History
-
Date of Service: October 17, 2023
Resting comfortably in bed
Denies abdominal pain/nausea/vomiting
No other acute issues overnight
Objective Data
-
Labs:
Laboratory Results
10/17/23
05:39
WBC 12.9 H
Hgb 10.8 L
Hct 29.7 L
Plt Count 61 L
Sodium 133 L
Potassium 3.5
Chloride 99
Carbon Dioxide 28
BUN 70 H
Creatinine 1.6 H
Glucose 115 H
Calcium 9.5
Vital Signs:
Vital Signs
Temp Pulse Resp BP Pulse Ox
98.4 F 62 18 136/72 97
10/17/23 07:00 10/17/23 07:00 10/17/23 07:00 10/17/23 07:00 10/17/23 09:06
I&O
10/16/23 10/17/23 10/18/23
06:59 06:59 06:59
Intake Total 1220 / 1220 700 / 700
Output Total 960 / 960 500 / 500 400 / 400
Balance 260 / 260 200 / 200 -400 / -400
Review of Systems
-
Respiratory: Reports No Symptoms
Cardiac: Reports No Symptoms
Abdomen/GI: Reports No Symptoms
Physical Exam
-
General: Comfortable and Cachectic
HEENT: Negative Oxygen
Respiratory: Clear to Auscultation
Cardiac: Regular Rhythm and S1/S2; Negative Murmur or Rub
GI: Soft, Nontender and Nondistended
Musculoskeletal: Edema, Right Lower Extrem and Edema, Left Lower Extrem
Neuro: Awake, Alert, Oriented, No Motor Deficits and Nonfocal/Grossly Intact
Psych: Calm
[2023-10-17 15:00] VITALS: BP 130/64
[2023-10-17 19:59] VITALS: BP 134/77
[2023-10-17] MEDS: LIPITOR 20 MG PO (20:39)
[2023-10-17] MEDS: ASPIR LOW (ENTERIC COATED) 81 MG PO (22:14)
[2023-10-17] MEDS: PROSCAR 5 MG PO (22:14)
[2023-10-17] MEDS: NORCO 5/325 1 TABLET PO (22:27)
[2023-10-17 23:40] VITALS: BP 129/74
[2023-10-18 03:25] VITALS: BP 128/72
[2023-10-18 05:57] VITALS: BMI 21.0
[2023-10-18 06:10] LABS: Hematocrit 28.2 % (39.0-52.0); Hemoglobin 10.3 g/dL (13.0-18.0); Mean Corp Hgb Conc. 36.5 g/dL (33.0-37.0); Mean Corpuscular Hgb 35.6 pg (27.0-31.0); Mean Corpuscular Volume 97.6 fL (80.0-94.0); Platelet Count 56 10^3/uL (130-400); Red Blood Cell Count 2.89 10^6/uL (4.70-6.10); Red Cell Dist. Width 15.1 % (11.5-14.5); White Blood Cell Count 9.5 10^3/uL (4.8-10.8)
[2023-10-18 06:39] LABS: Blood Urea Nitrogen 59 mg/dl (9-20); Calcium 9.2 mg/dl (8.4-10.2); Carbon Dioxide 25 mmol/L (22-30); Chloride 102 mmol/L (98-107); Estimated Creatinine Clearance 45 ml/min; Glucose 118 mg/dl (70-99); Potassium 3.6 mmol/L (3.5-5.1); Sodium 132 mmol/L (135-145); eGFR 59.26
[2023-10-18 07:00] VITALS: BP 125/71
[2023-10-18] MEDS: ZYLOPRIM 100 MG PO (08:11)
[2023-10-18] MEDS: ROCEPHIN 1000 MG IV (08:11)
[2023-10-18] MEDS: ELIQUIS 2.5 MG PO ×2 (08:11→11:54)
[2023-10-18] MEDS: FOLVITE 1 MG PO (08:11)
[2023-10-18] MEDS: FARXIGA 10 MG PO (08:11)
[2023-10-18] MEDS: FLOMAX 0.400000000000000022 MG PO (08:11)
[2023-10-18] MEDS: TOPROL XL 12.5 MG PO ×2 (08:11→11:54)
[2023-10-18] MEDS: STERILE WATER FOR INJECTION 10 ML IV (08:11)
--- NOTE | 2023-10-18 09:07 | W.PN.CD ---
Addendum entered and electronically signed by Moisés Paula MD 10/18/23 13:34:
-
-
I saw and examined the patient.
The MANAGER REPORTING's note was reviewed and I agree with the note.
Comment: On exam lungs clear. He denies CP or dyspnea. Also anticipate resuming his usual furosemide at discharge.
-
-
Original Note:
Today's Communication / Plan
-
-increase Eliquis dosing to 5 mg PO BID (creatinine now less than 1.5)
-increase metoprolol to 25 mg daily (his home dose)
-If creatinine continues to improve back to baseline and BP's remain stable, resume Entresto tomorrow
Impression / Plan
-
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
edema, and balance issues. He is being treated for bacteremia/UTI. At first diuresed with CHF exac, but then held with GABRIELA/hypotension.
E coli sepsis:
-positive urine and blood cultures
-Continue antibiotics as per primary team
Chronic HFrEF:
-ECHO showed EF 40-45%, mild to mod MRSERGEY HTN (64)
-meds were held with sepsis. BP improved, creatinine improving.
-currently on low dose BB, will increase back to his typical dosing. May add back Entresto tomorrow if creatinine back to normal.
-Farxiga initiated this admit
-does not appear volume overloaded to assessment, weight remains down. Follow closely, but will remain off lasix today.
Permanent atrial fibrillation
-Rate controlled, PVC's noted- resume BB at his typical dosing as above
-Oral Anticoagulation: he was transitioned from warfarin to Eliquis this admit. Eliquis was at 2.5 mg PO BID when renal function was >1.5. Now it is 1.2 and I will adjust Eliquis to 5 mg PO BID.
-[id number]: Score at least 5 (Heart failure, HTN, age 75 or more, Vascular disease)
CAD
-PCI 2008
-Cath 01/2021: Moderate coronary artery disease in the terminal RCA and the distal LAD. Patent LAD stents.
-Continue aspirin, beta-joseph, and atorvastatin
HTN:
-was hypotensive so meds were held. BP's slowly improving.
-increase BB and monitor, then likely Entresto next. Amlodipine remains off since Patient with HFrEF.
Ambulatory dysfunction, multiple falls, per primary
PASQUALE stent (2010)
Non-Hodgkin's lymphoma, in remission
Splenectomy
Chronic back pain, worsened, possibly related to falls, x-ray stable
Physical Exam
Vital Signs/Labs
Vital Signs
Temp Pulse Resp BP Pulse Ox
97.8 F 76 18 125/71 96
10/18/23 07:00 10/18/23 07:00 10/18/23 07:00 10/18/23 07:00 10/18/23 07:00
10/17/23 10/18/23 10/19/23
06:59 06:59 06:59
Actual Weight 71.078 kg 70.023 kg
10/18/23 05:11
10/18/23 05:11
PT Cancelled 10/13/23 08:24
INR Cancelled 10/13/23 08:24
TSH 0.20 uIU/ml (0.47-4.68) L 10/14/23 03:46
Free T4 1.54 ng/dl (0.78-2.19) 10/14/23 03:46
10/11/23
22:27
Vpz-F-Urxpyolyqcl Pept 3940
Physical Exam
Constitutional: No acute distress
EENT: Anicteric
Cardiovascular: Rhythm/rate is irregular
Respiratory: Respiratory effort normal and Lungs clear to auscul.
Neuro/Psych: Alert and Oriented
Data Reviewed
-
Date of Service: October 18, 2023
EKG: Other (tele, AFIB rate-controlled, occ PVC's)
Labs: Labs Reviewed by me
[2023-10-18 11:00] VITALS: BP 121/62
--- NOTE | 2023-10-18 11:35 | W.PN.HOSP.TC ---
Today's Communication/Plan
-
trend cr
lasix/entresto per cards
oob/pt
monitor UOP
IV abx
Assessment / Plan
Assessment / Plan
1. Acute on chronic systolic congestive heart failure
-2D echo 12/10/2020: EF 40%, moderately reduced systolic function. Global hypokinesis, mild MR/TR. Mild dilated aortic root 3.3 cm
-Increasing leg swelling R >> L causing ambulatory dysfunction
-Denies dyspnea. Not hypoxic. Lung examination relatively clear.
-Elevated JVP with signs of lower extremity edema concerning for volume overload and heart failure exacerbation
-TTE this admit showing midrange EF 40-45%, mod MR, PAP of 64mmHg
-continue hold Entresto. Can probably restart lasix in 24h.
2. GABRIELA
-Baseline creatinine 1.1.
-Currently in GABRIELA with elevated creatinine max of 1.8 this admission.
-Diuretics/Entresto on hold.
-Renal ultrasound did not show any acute structural issues
-Renal function trending down slowly today. Cr at 1.2
-ordered haynes catheter as may have some post renal component as well.
3. E-coli bacteremia
-bacteremia likely from urinary source. GB US showing wall thickening, no n/v. no abd pain.
-Urine cs growing Ecoli, no dysuria/UA did not show pyuria
-CXR showing pulmonary edema. covid neg.
-Renal bladder us negative hydro/stone
-Repeat blood cs collected - f/u report remains negative.
-Antibiotic coverage broadened due to worsening leukocytosis despite being on Rocephin based on culture information. Will change back once clinically better.
4. Mild cognitive impairment
TME - resolved
-patient have episode of forgetfulness at home.
-Possibly with new fever episode patient may have worsening confusion at this point
-not on any sedative medication except home dose of hydrocodone
-Occasional alcohol use. confirmed with spouse. tremors are chronic.
5. Vitamin B12 deficiency
Folate deficiency
-B12 210, Folate 2.4
-start IM B12 inj 1000mcg weekly, got dose 1 on .
-Start oral folate replacement
-No spinal imaging to confirm but B12 def may be playing role in memory issue/weakness beside other thing
6. Persistent A-fib
-patient changed to eliquis by cards this admit, was on warfarin.
-Eliquis dose adjusted to 5mg BID
7. Acute thrombocytopenia
-secondary to ecoli bacteremia
-Monitor plt count. Last known baseline of 155 in
-Patient on colchicine and may cause some bone marrow suppression as well.
8. BPH with chronic urinary incontinence
Urinary retention
-Continue tamsulosin 0.4 mg daily, finasteride 5 mg at bedtime
-Condom catheter in place with ongoing diuretic need
-Patient requiring repeated catheterization with volume being 300 to 500 mL range.
-With ongoing GABRIELA will place Haynes catheter to help recovery of any postrenal component.
9. Essential HTN - Uncontrolled
-PRN hydralazine added to regimen
-on toprol xl 25mg/d
-Entresto hel for now. needs to be resumed once renal function better.
9.Generalized weakness
Ambulatory dysfunction
-Patient having difficulty lifting right leg with significant swelling
-Lower extremity venous Doppler negative
-PT recommended rehab and patient agreeable
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
Hx of splenectomy
HLD
CAD/Multiple cardiac stents
Hx carotid stent
Chronic lumbar back pain
Neurostimulator in back with removal
Gout
Macular degeneration
DVT prophylaxis -Eliquis
DNR per patient
Anticipated Discharge: 24 - 48 hours
Subjective/Interval History
-
Date of Service: October 18, 2023
states starting to feel better
appetite slowly improving
Objective Data
-
Labs:
Laboratory Results
10/18/23
05:11
WBC 9.5
Hgb 10.3 L
Hct 28.2 L
Plt Count 56 L
Sodium 132 L
Potassium 3.6
Chloride 102
Carbon Dioxide 25
BUN 59 H
Creatinine 1.2
Glucose 118 H
Calcium 9.2
Vital Signs:
Vital Signs
Temp Pulse Resp BP Pulse Ox
97.8 F 76 18 125/71 96
10/18/23 07:00 10/18/23 07:00 10/18/23 07:00 10/18/23 07:00 10/18/23 07:00
I&O
10/17/23 10/18/23 10/19/23
06:59 06:59 06:59
Intake Total 700 / 700 2180 / 2180
Output Total 500 / 500 1575 / 1575
Balance 200 / 200 605 / 605
Physical Exam
-
General: Comfortable and Cachectic
HEENT: Negative Oxygen
Respiratory: Clear to Auscultation
Cardiac: Regular Rhythm and S1/S2; Negative Murmur or Rub
GI: Soft, Nontender and Nondistended
Musculoskeletal: Edema, Right Lower Extrem and Edema, Left Lower Extrem
Neuro: Awake, Alert, Oriented, No Motor Deficits and Nonfocal/Grossly Intact
Psych: Calm
Data Reviewed
-
Total Time Spent with Patient (in minutes): 55
--- NOTE | 2023-10-18 14:29 | CM ---
Case management following for d/c planning
Chart reviewed
Pt for SNF when medically
Accepted at [facility] pend bed availability on day of d/c
Donya at the [facility] made aware pt will be for d/c
Plan - anticipate [facility] when medically ready
[2023-10-18 15:00] VITALS: BP 116/72
[2023-10-18] MEDS: LIPITOR 20 MG PO (18:37)
[2023-10-18 19:35] VITALS: BP 146/82
[2023-10-18] MEDS: ELIQUIS 5 MG PO (21:07)
[2023-10-18] MEDS: ASPIR LOW (ENTERIC COATED) 81 MG PO (21:08)
[2023-10-18] MEDS: PROSCAR 5 MG PO (21:08)
[2023-10-18] MEDS: NORCO 5/325 1 TABLET PO (21:29)
[2023-10-18 23:30] VITALS: BP 120/69
[2023-10-19] VITALS (7 sets, daily range): BP systolic 110–141; BP diastolic 59–82; PULSE 71–72; O2SAT 96–97; BMI 20.9
--- NOTE | 2023-10-19 00:51 | PTCARENOTE ---
Tele tracing AFIB with PVCS and ventricular bigeminy at times. Patient asymptomatic, no compliants. vs 127/63, 73,16, 95%RA. metoprol previously decreased d/t PVCs but increased to previous dose of 25mg on 10/17, MANAGER SERVICING Becky notified via tiger
text.
--- NOTE | 2023-10-19 01:58 | PTCARENOTE ---
BMP, CBC and Mag level ordered by BLACK OXIDE OPERATOR
[2023-10-19 02:18] LABS: % Basophils 0.2 % (0-2); % Immature Granulocytes 0.9 % (0-0.5); % Lymphocytes 7.3 % (20.5-51.1); % Monocytes 14.4 % (1.7-9.3); % Neutrophils 77.2 % (42.2-75.2); Absolute Immature Granulocytes 0.1 10^3/uL (0-0.05); Absolute Lymphocytes 0.9 10^3/uL (1.2-3.4); Absolute Monocytes 1.7 10^3/uL (0.1-0.6); Hematocrit 27.5 % (39.0-52.0); Hemoglobin 10.2 g/dL (13.0-18.0); Mean Corp Hgb Conc. 37.1 g/dL (33.0-37.0); Mean Corpuscular Hgb 35.8 pg (27.0-31.0); Mean Corpuscular Volume 96.5 fL (80.0-94.0); Nucleated Red Blood Cells % 0 % (-); Platelet Count 60 10^3/uL (130-400); Red Blood Cell Count 2.85 10^6/uL (4.70-6.10); Red Cell Dist. Width 15.4 % (11.5-14.5); White Blood Cell Count 11.7 10^3/uL (4.8-10.8)
[2023-10-19 02:46] LABS: Blood Urea Nitrogen 52 mg/dl (9-20); Calcium 9.1 mg/dl (8.4-10.2); Carbon Dioxide 26 mmol/L (22-30); Chloride 100 mmol/L (98-107); Estimated Creatinine Clearance 53 ml/min; Glucose 134 mg/dl (70-99); Magnesium 1.9 mg/dl (1.6-2.3); Potassium 3.5 mmol/L (3.5-5.1); Sodium 131 mmol/L (135-145); eGFR > 60.00
[2023-10-19] MEDS: NORCO 5/325 1 TABLET PO (03:11)
[2023-10-19] MEDS: TOPROL XL 25 MG PO (08:43)
[2023-10-19] MEDS: ELIQUIS 5 MG PO ×2 (08:43→21:29)
[2023-10-19] MEDS: FLOMAX 0.400000000000000022 MG PO (08:43)
[2023-10-19] MEDS: FOLVITE 1 MG PO (08:43)
[2023-10-19] MEDS: STERILE WATER FOR INJECTION 10 ML IV (08:43)
[2023-10-19] MEDS: FARXIGA 10 MG PO (08:43)
[2023-10-19] MEDS: ZYLOPRIM 100 MG PO (08:43)
[2023-10-19] MEDS: ROCEPHIN 1000 MG IV (08:43)
--- NOTE | 2023-10-19 08:51 | W.PN.CD ---
Today's Communication / Plan
-
-Will resume Lasix 20 mg PO daily.
-May possibly resume Entresto tomorrow if creatinine remains normal.
Impression / Plan
-
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
edema, and balance issues. He is being treated for bacteremia/UTI. At first diuresed with CHF exac, but then held with GABRIELA/hypotension.
E coli sepsis:
-positive urine and blood cultures
-Continue antibiotics as per primary team
Chronic HFrEF:
-ECHO showed EF 40-45%, mild to mod MR, PA HTN (64)
-meds were held with sepsis. BP improved, creatinine improved.
-Continue Toprol-XL 25 mg daily.
-Will resume Lasix 20 mg PO daily.
-May possibly resume Entresto tomorrow if creatinine remains normal.
-Ariela initiated this admit.
Permanent atrial fibrillation
-Remains rate controlled, PVC's noted-continue current dose of Toprol-XL.
-Oral Anticoagulation: he was transitioned from warfarin to Eliquis this admit. Eliquis was at 2.5 mg PO BID when renal function was >1.5. Now it is 1.2 and adjusted to Eliquis 5 mg PO BID.
-[id number]: Score at least 5 (Heart failure, HTN, age 75 or more, Vascular disease)
CAD
-PCI 2008
-Cath 01/2021: Moderate coronary artery disease in the terminal RCA and the distal LAD. Patent LAD stents.
-Continue aspirin, beta-joseph, and atorvastatin
HTN:
-Blood pressure now stable/improved.
-Resuming Lasix as above; possibly resuming Entresto tomorrow.
Ambulatory dysfunction, multiple falls, per primary
PASQUALE stent (2010)
Non-Hodgkin's lymphoma, in remission
Splenectomy
Chronic back pain, worsened, possibly related to falls, x-ray stable
Physical Exam
Vital Signs/Labs
Vital Signs
Temp Pulse Resp BP Pulse Ox
97.9 F 95 15 134/82 97
10/19/23 07:42 10/19/23 07:42 10/19/23 07:42 10/19/23 07:42 10/19/23 07:42
10/18/23 10/19/23 10/20/23
06:59 06:59 06:59
Actual Weight 70.023 kg 69.853 kg
10/19/23 06:00
10/19/23 06:00
PT Cancelled 10/13/23 08:24
INR Cancelled 10/13/23 08:24
Magnesium 1.9 mg/dl (1.6-2.3) 10/19/23 02:08
TSH 0.20 uIU/ml (0.47-4.68) L 10/14/23 03:46
Free T4 1.54 ng/dl (0.78-2.19) 10/14/23 03:46
10/11/23
22:27
Utj-K-Cargmdbmubr Pept 3940
Physical Exam
Constitutional: No acute distress and Comfortable
EENT: Anicteric
Cardiovascular: Rhythm/rate is irregular, Pedal edema present (1+), Systolic murmur present (2/6) and S1S2 is normal
Respiratory: Respiratory effort normal, Wheeze Absent and Rhonchi Present
GI: Soft
Neuro/Psych: AO x 3
Other: Skin (Warm, dry)
Data Reviewed
-
Date of Service: October 19, 2023
EKG: Tracing Personally Visualized and interpreted (Telemetry: A-fib)
Medical Tests (PFT, Pathology etc): Discussed with Patient and Discussed with Family (Daughter, Romelia, at bedside)
Labs: Labs Reviewed by me
[2023-10-19] MEDS: LASIX 20 MG PO (09:31)
--- NOTE | 2023-10-19 10:45 | W.PN.HOSP.TC ---
Today's Communication/Plan
-
trend plt
start dispo planning
trend cr
DC haynes
Assessment / Plan
Assessment / Plan
1. Acute on chronic systolic congestive heart failure
-2D echo 12/10/2020: EF 40%, moderately reduced systolic function. Global hypokinesis, mild MR/TR. Mild dilated aortic root 3.3 cm
-Increasing leg swelling R >> L causing ambulatory dysfunction
-Denies dyspnea. Not hypoxic. Lung examination relatively clear.
-Elevated JVP with signs of lower extremity edema concerning for volume overload and heart failure exacerbation
-TTE this admit showing midrange EF 40-45%, mod MR, PAP of 64mmHg
-continue hold Entresto. Lasix restarted in lower dose 20mg.
2. GABRIELA
-Baseline creatinine 1.1.
-Currently in GABRIELA with elevated creatinine max of 1.8 this admission.
-Entresto on hold.
-Renal ultrasound did not show any acute structural issues
-resolved.
-DC haynes and start TOV.
3. E-coli bacteremia
-bacteremia likely from urinary source. GB US showing wall thickening, no n/v. no abd pain.
-Urine cs growing Ecoli, no dysuria/UA did not show pyuria
-CXR showing pulmonary edema. covid neg.
-Renal bladder us negative hydro/stone
-Repeat blood cs collected - f/u report remains negative.
-Cont Rocephin
4. Mild cognitive impairment
TME - resolved
-patient have episode of forgetfulness at home.
-Possibly with new fever episode patient may have worsening confusion at this point
-not on any sedative medication except home dose of hydrocodone
-Occasional alcohol use. confirmed with spouse. tremors are chronic.
5. Vitamin B12 deficiency
Folate deficiency
-B12 210, Folate 2.4
-start IM B12 inj 1000mcg weekly, got dose 1 on .
-Start oral folate replacement
-No spinal imaging to confirm but B12 def may be playing role in memory issue/weakness beside other thing
6. Persistent A-fib
-patient changed to eliquis by cards this admit, was on warfarin.
-Eliquis dose adjusted to 5mg BID
7. Acute thrombocytopenia
-secondary to ecoli bacteremia
-Monitor plt count. Last known baseline of 155 in
-Patient on colchicine and may cause some bone marrow suppression as well.
-fall precations added.
8. BPH with chronic urinary incontinence
Urinary retention
-Continue tamsulosin 0.4 mg daily, finasteride 5 mg at bedtime
-Condom catheter in place with ongoing diuretic need
-Patient requiring repeated catheterization with volume being 300 to 500 mL range.
-With ongoing GABRIELA will place Haynes catheter to help recovery of any postrenal component.
-TOV
9. Essential HTN - Uncontrolled
-PRN hydralazine added to regimen
-on toprol xl 25mg/d
-Entresto hel for now. needs to be resumed once renal function better.
9.Generalized weakness
Ambulatory dysfunction
-Patient having difficulty lifting right leg with significant swelling
-Lower extremity venous Doppler negative
-PT recommended rehab and patient agreeable
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
Hx of splenectomy
HLD
CAD/Multiple cardiac stents
Hx carotid stent
Chronic lumbar back pain
Neurostimulator in back with removal
Gout
Macular degeneration
DVT prophylaxis -Eliquis
DNR per patient
PT/OT-SNF. CM aware. Start dispo planning
Anticipated Discharge: Within 24 hours
Subjective/Interval History
-
Date of Service: October 19, 2023
feeling better
appetite is improving
Objective Data
-
Labs:
Laboratory Results
10/19/23 10/19/23
02:08 06:00
WBC 11.7 H Cancelled
Hgb 10.2 L Cancelled
Hct 27.5 L Cancelled
Plt Count 60 L Cancelled
Sodium 131 L Cancelled
Potassium 3.5 Cancelled
Chloride 100 Cancelled
Carbon Dioxide 26 Cancelled
BUN 52 H Cancelled
Creatinine 1.0 Cancelled
Glucose 134 H Cancelled
Calcium 9.1 Cancelled
Vital Signs:
Vital Signs
Temp Pulse Resp BP Pulse Ox
97.9 F 80 15 107/48 97
10/19/23 07:42 10/19/23 09:31 10/19/23 07:42 10/19/23 09:31 10/19/23 07:42
I&O
10/18/23 10/19/23 10/20/23
06:59 06:59 06:59
Intake Total 2180 / 2180 1680 / 1680
Output Total 1575 / 1575 1200 / 1200
Balance 605 / 605 480 / 480
Physical Exam
-
General: Comfortable and Cachectic
HEENT: Negative Oxygen
Respiratory: Clear to Auscultation
Cardiac: Regular Rhythm and S1/S2; Negative Murmur or Rub
GI: Soft, Nontender and Nondistended
Musculoskeletal: Edema, Right Lower Extrem and Edema, Left Lower Extrem
Neuro: Awake, Alert, Oriented, No Motor Deficits and Nonfocal/Grossly Intact
Psych: Calm
Data Reviewed
-
Total Time Spent with Patient (in minutes): 55
--- NOTE | 2023-10-19 13:03 | PN.CDI ---
CDI
- -
CDI:
Physician Documentation Request
Admit Date: 10/12/23 11:00
Dear Doctor Bere,
Patient admitted for acute heart failure.
Laboratory Tests
10/16/23 10/17/23 10/18/23
05:44 05:39 05:11
Sodium 131 L 133 L 132 L
10/19/23
02:08
Sodium 131 L
Based on the above, could you clarify in the progress notes, the appropriate diagnosis, if significant, that supports the above abnormalities and additional evaluation, monitoring and/or treatment rendered:
Hyponatremia
Abnormal lab value insignificant
Other
Use of terms such as suspected, likely, concern for, or probable (associated with a specific diagnosis that is being evaluated, monitored, or treated as if it exists) are acceptable and can be coded in the inpatient setting, when documented at the
time of discharge.
Thank you,
Cayla Hodgson RN, BSN
CDI Specialist
Available via [place] text
Please use your independent medical judgment in providing your response.
--- NOTE | 2023-10-19 14:58 | CM ---
Addendum entered by Aliza Kwong 10/19/23 15:20:
Spoke with pts - aware [facility] currently has no beds
Pts agreeable to [facility] - family can supply Farxiga
LM with Merna at [facility] - waiting for response
Original Note:
Case management following for d/c planning
Pt for SNF - per physician pt would be ready for d/c tomorrow
Spoke with Donya at the [facility]
Unable to accept at this time due to bed availability
Referral previously sent to [facility]
Contacted Merna at [facility] - can accept but would need to supply his own Farxiga
Called pts to discuss d/c plan - LM with call back # on Voicemail
No auth needed
Plan - transfer to [facility] when medically stable
[2023-10-19] MEDS: LIPITOR 20 MG PO (17:12)
[2023-10-19] MEDS: PROSCAR 5 MG PO (21:29)
[2023-10-19] MEDS: ASPIR LOW (ENTERIC COATED) 81 MG PO (21:29)
[2023-10-20 03:00] VITALS: BP 115/66
[2023-10-20 06:00] VITALS: BMI 21.1
[2023-10-20 07:00] VITALS: BP 121/64
[2023-10-20] MEDS: FLOMAX 0.400000000000000022 MG PO (08:24)
[2023-10-20] MEDS: ELIQUIS 5 MG PO (08:25)
[2023-10-20] MEDS: FARXIGA 10 MG PO (08:25)
[2023-10-20] MEDS: STERILE WATER FOR INJECTION 10 ML IV (08:25)
[2023-10-20] MEDS: FOLVITE 1 MG PO (08:25)
[2023-10-20] MEDS: LASIX 20 MG PO (08:25)
[2023-10-20] MEDS: ZYLOPRIM 100 MG PO (08:25)
[2023-10-20] MEDS: TOPROL XL 25 MG PO (08:25)
[2023-10-20] MEDS: ROCEPHIN 1000 MG IV (08:26)
--- NOTE | 2023-10-20 09:24 | W.PN.CD ---
Today's Communication / Plan
-
-On antibiotics; management as per primary team.
-Continue Lasix 20 mg PO daily.
-Will not resume Entresto at this time due to blood pressure limitations; will reevaluate as outpatient.
-No further cardiac recommendations at this time; outpatient follow-up with cardiology.
Impression / Plan
-
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
edema, and balance issues. He is being treated for bacteremia/UTI. At first diuresed with CHF exac, but then held with GABRIELA/hypotension.
E coli sepsis:
-positive urine and blood cultures
-On antibiotics; management as per primary team.
Chronic HFrEF:
-ECHO showed EF 40-45%, mild to mod MR, PA HTN (64)
-meds were held with sepsis. BP improved, creatinine improved.
-Continue Toprol-XL 25 mg daily.
-Continue Lasix 20 mg PO daily.
-Will not resume Entresto at this time due to blood pressure limitations; will reevaluate as outpatient.
-Continue Farxiga, initiated this admission.
Permanent atrial fibrillation
-Remains rate controlled, PVC's noted-continue current dose of Toprol-XL.
-Oral Anticoagulation: he was transitioned from warfarin to Eliquis this admit. Eliquis was at 2.5 mg PO BID when renal function was >1.5. Now it is 1.2 and adjusted to Eliquis 5 mg PO BID.
-[id number]: Score at least 5 (Heart failure, HTN, age 75 or more, Vascular disease)
CAD
-PCI 2008
-Cath 01/2021: Moderate coronary artery disease in the terminal RCA and the distal LAD. Patent LAD stents.
-Continue aspirin, beta-joseph, and atorvastatin
HTN:
-Blood pressure now relatively stable/improved.
-Plan as above.
Ambulatory dysfunction, multiple falls, per primary
PASQUALE stent (2010)
Non-Hodgkin's lymphoma, in remission
Splenectomy
Chronic back pain, worsened, possibly related to falls, x-ray stable
Physical Exam
Vital Signs/Labs
Vital Signs
Temp Pulse Resp BP Pulse Ox
97.6 F 82 16 121/64 97
10/20/23 07:00 10/20/23 08:25 10/20/23 07:00 10/20/23 08:25 10/20/23 07:00
10/19/23 10/20/23 10/21/23
06:59 06:59 06:59
Actual Weight 69.853 kg 70.364 kg
PT Cancelled 10/13/23 08:24
INR Cancelled 10/13/23 08:24
Magnesium 1.9 mg/dl (1.6-2.3) 10/19/23 02:08
TSH 0.20 uIU/ml (0.47-4.68) L 10/14/23 03:46
Free T4 1.54 ng/dl (0.78-2.19) 10/14/23 03:46
10/11/23
22:27
Jnk-I-Vbnsgygqkrx Pept 3940
Physical Exam
Constitutional: No acute distress and Comfortable
EENT: Anicteric
Cardiovascular: Rhythm/rate is irregular, Pedal edema present (Trace), Systolic murmur present (Soft 2/6) and S1S2 is normal
Respiratory: Respiratory effort normal and Rhonchi Present (Mild bibasilar)
GI: Soft
Neuro/Psych: AO x 3
Other: Skin (Warm, dry)
Data Reviewed
-
Date of Service: October 20, 2023
EKG: Tracing Personally Visualized and interpreted (Telemetry: A-fib)
Labs: Labs Reviewed by me
[2023-10-20 09:46] LABS: % Basophils 0.3 % (0-2); % Eosinophils 0.1 % (0-6); % Immature Granulocytes 1.1 % (0-0.5); % Lymphocytes 6.2 % (20.5-51.1); % Neutrophils 86.3 % (42.2-75.2); Absolute Immature Granulocytes 0.1 10^3/uL (0-0.05); Absolute Lymphocytes 0.7 10^3/uL (1.2-3.4); Absolute Monocytes 0.7 10^3/uL (0.1-0.6); Absolute Neutrophils 10.3 10^3/uL (1.4-6.5); Hematocrit 28.2 % (39.0-52.0); Hemoglobin 10.3 g/dL (13.0-18.0); Mean Corp Hgb Conc. 36.5 g/dL (33.0-37.0); Mean Corpuscular Hgb 35.9 pg (27.0-31.0); Mean Corpuscular Volume 98.3 fL (80.0-94.0); Nucleated Red Blood Cells % 0 % (-); Platelet Count 83 10^3/uL (130-400); Red Blood Cell Count 2.87 10^6/uL (4.70-6.10); Red Cell Dist. Width 15.3 % (11.5-14.5); White Blood Cell Count 11.9 10^3/uL (4.8-10.8)
[2023-10-20 10:02] LABS: Blood Urea Nitrogen 50 mg/dl (9-20); Calcium 8.9 mg/dl (8.4-10.2); Carbon Dioxide 25 mmol/L (22-30); Chloride 101 mmol/L (98-107); Estimated Creatinine Clearance 54 ml/min; Glucose 127 mg/dl (70-99); Potassium 4.2 mmol/L (3.5-5.1); Sodium 132 mmol/L (135-145); eGFR > 60.00
[2023-10-20 11:00] VITALS: BP 106/57
--- NOTE | 2023-10-20 11:59 | W.PN.HOSP.TC ---
Addendum entered and electronically signed by Han Blackburn MD 10/20/23 13:28:
mild hyponatremia
Original Note:
Today's Communication/Plan
-
dc snf
po abx
po lasix
dc entresto
Assessment / Plan
Assessment / Plan
1. Acute on chronic systolic congestive heart failure
-2D echo 12/10/2020: EF 40%, moderately reduced systolic function. Global hypokinesis, mild MR/TR. Mild dilated aortic root 3.3 cm
-Increasing leg swelling R >> L causing ambulatory dysfunction
-Denies dyspnea. Not hypoxic. Lung examination relatively clear.
-Elevated JVP with signs of lower extremity edema concerning for volume overload and heart failure exacerbation
-TTE this admit showing midrange EF 40-45%, mod MR, PAP of 64mmHg
-continue hold Entresto. Lasix restarted in lower dose 20mg.
2. GABRIELA
-Baseline creatinine 1.1.
-Currently in GABRIELA with elevated creatinine max of 1.8 this admission.
-Entresto on hold. can be reevaluated as outpatient by cardiology.
-Renal ultrasound did not show any acute structural issues
-resolved.
-DC haynes .
3. E-coli bacteremia
-bacteremia likely from urinary source. GB US showing wall thickening, no n/v. no abd pain.
-Urine cs growing Ecoli, no dysuria/UA did not show pyuria
-CXR showing pulmonary edema. covid neg.
-Renal bladder us negative hydro/stone
-Repeat blood cs collected - f/u report remains negative.
-Cont Rocephin
4. Mild cognitive impairment
TME - resolved
-patient have episode of forgetfulness at home.
-Possibly with new fever episode patient may have worsening confusion at this point
-not on any sedative medication except home dose of hydrocodone
-Occasional alcohol use. confirmed with spouse. tremors are chronic.
5. Vitamin B12 deficiency
Folate deficiency
-B12 210, Folate 2.4
-start IM B12 inj 1000mcg weekly, got dose 1 on .
-Start oral folate replacement
-No spinal imaging to confirm but B12 def may be playing role in memory issue/weakness beside other thing
6. Persistent A-fib
-patient changed to eliquis by cards this admit, was on warfarin.
-Eliquis dose adjusted to 5mg BID
7. Acute thrombocytopenia
-secondary to ecoli bacteremia
-Monitor plt count. Last known baseline of 155 in
-Patient on colchicine and may cause some bone marrow suppression as well.
-fall precations added. Improving to 83 K. Outpatient CBC recommended. This was also informed to patient's son who verbalized understanding..
8. BPH with chronic urinary incontinence
Urinary retention
-Continue tamsulosin 0.4 mg daily, finasteride 5 mg at bedtime
-Condom catheter in place with ongoing diuretic need
-Patient requiring repeated catheterization with volume being 300 to 500 mL range.
-With ongoing GABRIELA will place Haynes catheter to help recovery of any postrenal component.
-TOV
9. Essential HTN - Uncontrolled
-PRN hydralazine added to regimen
-on toprol xl 25mg/d
-Entresto hel for now. needs to be resumed once renal function better.
9.Generalized weakness
Ambulatory dysfunction
-Patient having difficulty lifting right leg with significant swelling
-Lower extremity venous Doppler negative
-PT recommended rehab and patient agreeable
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
Hx of splenectomy
HLD
CAD/Multiple cardiac stents
Hx carotid stent
Chronic lumbar back pain
Neurostimulator in back with removal
Gout
Macular degeneration
DVT prophylaxis -Eliquis
DNR per patient
PT/OT-SNF.
Discussed with patient's son at bedside in detail.
More than 30 minutes spent in discharge including
Final examination of the patient
Summarizing hospital stay
Instructions for continuing care to all relevant caregivers
Preparation of discharge records, prescriptions, and referral forms
Total time spent (in minutes): 45
.
Anticipated Discharge: Today
Subjective/Interval History
-
Date of Service: October 20, 2023
states appetite is improving
feeling a lot better
Objective Data
-
Labs:
Laboratory Results
10/20/23
09:11
WBC 11.9 H
Hgb 10.3 L
Hct 28.2 L
Plt Count 83 L D
Sodium 132 L
Potassium 4.2
Chloride 101
Carbon Dioxide 25
BUN 50 H
Creatinine 1.0
Glucose 127 H
Calcium 8.9
Vital Signs:
Vital Signs
Temp Pulse Resp BP Pulse Ox
97.6 F 82 16 121/64 97
10/20/23 07:00 10/20/23 08:25 10/20/23 07:00 10/20/23 08:25 10/20/23 07:00
I&O
10/19/23 10/20/23 10/21/23
06:59 06:59 06:59
Intake Total 1680 / 1680 360 / 360
Output Total 1200 / 1200 650 / 650
Balance 480 / 480 -290 / -290
Physical Exam
-
General: Comfortable and Cachectic
HEENT: Negative Oxygen
Respiratory: Clear to Auscultation
Cardiac: Regular Rhythm and S1/S2; Negative Murmur or Rub
GI: Soft, Nontender and Nondistended
Musculoskeletal: Edema, Right Lower Extrem and Edema, Left Lower Extrem
Neuro: Awake, Alert, Oriented, No Motor Deficits and Nonfocal/Grossly Intact
Psych: Calm
--- NOTE | 2023-10-20 12:04 | W.DCSUMMARY ---
Discharge Summary
Discharge Data
Date of Admission: 10/12/23
Date of Discharge: 10/20/23
-
Pending Results: No
Hospital Course
87-year-old male extensive past medical history of CHF, pulmonary impairment, B12 deficiency, A-fib, BPH with chronic urinary incontinence, urinary retention, hypertension, ambulatory dysfunction, non-Hodgkin lymphoma, splenectomy, hyperlipidemia
CAD status post stents, chronic lumbar back pain, gout, macular degeneration who is present with weakness. Patient was also found to be in acute on chronic heart failure exacerbation. Cardiology was consulted. Initially IV Lasix was started.
Patient with bump in creatinine and Lasix and Entresto was held. Patient also with urinary retention and Moran catheter was placed. Patient creatinine slowly down trended. Moran catheter was removed and patient will was voiding without
difficulty. Patient was also found to have UTI with bacteremia. IV antibiotic Rocephin was transitioned to p.o. on discharge. Patient white count stabilized. Patient afebrile. Creatinine stabilized. Entresto was discontinued. Lasix dose was
decreased to 20 mg daily. Patient was eval by PT and OT and be discharged to long term facility.
Discharge Plan
-
Patient Disposition: [facility]NF
Discharge Diagnosis/Procedures: Acute on chronic systolic heart failure exacerbation
Acute kidney injury
E. coli bacteremia
Toxic metabolic encephalopathy
Vitamin B12 deficiency
Acute thrombocytopenia
BPH with urinary retention
Generalized weakness
Ambulatory dysfunction
Condition: Fair
Diet: 2 Gram Sodium
Activity: With assistance and As tolerated
Driving Restrictions: Not until seen by your Dr
Blood Work: CBC and BMP in 1 week with primary doctor
Referrals:
[facility] [Other] (FAX [phone])
Ashwini Solis MD [Family Provider] - in less than 1 week
Additional Discharge Medication Instructions: Norvasc, Entresto and Coumadin and colchicine was discontinued
Prescriptions:
New
Eliquis 5 mg Tablet
5 mg PO BID Qty: 60 0RF
dapagliflozin propanediol 10 mg Tablet
10 mg PO DAILY Qty: 30 0RF
cefdinir 300 mg capsule
300 mg PO BID Qty: 20 0RF
cyanocobalamin (vitamin B-12) 1,000 mcg capsule
1,000 mcg PO DAILY Qty: 30 0RF
Continued
aspirin 81 MG tablet,delayed release (DR/EC)
81 mg PO HS
atorvastatin 20 MG tablet
20 mg PO QPM 0RF
tamsulosin 0.4 MG capsule
0.4 mg PO DAILY 0RF
finasteride 5 MG tablet
5 mg PO HS
nitroglycerin 0.4 MG tablet, sublingual
0.4 mg sublingual PRN PRN (Reason: As Needed chest pain)
allopurinol 100 mg Tablet
100 mg PO DAILY
metoprolol succinate 25 mg Tablet Extended Release 24 Hr
25 mg PO DAILY
hydrocodone-acetaminophen 5-300 mg Tablet
1 tab PO QIDPRN PRN (Reason: severe pains)
furosemide 20 MG tablet
20 mg PO DAILY
Rx Instructions:
Please take DAILY- do not skip any days.
Discontinued
amlodipine 2.5 MG tablet
2.5 mg PO DAILY 0RF
warfarin [Jantoven] 4 MG tablet
6 mg PO QPM
diphenhydramine HCl [Benadryl] 25 mg Capsule
25 mg PO HSPRN PRN (Reason: Insomnia)
colchicine 0.6 mg Tablet
0.6 mg PO DAILY
Entresto 1 EACH tablet
1 tab PO BID
Discharge Orders:
Discharge Patient (As Directed); Ordered 10/20/23
Ordered By: Han Blackburn
Care Plan Goals
Care Plan Goals:
Problem: Readiness for enhanced knowledge related to diagnosis and treatment plan
Goal: Understand your diagnosis and treatment plan needs, including medications if applicable.
Instructions: Know your diagnosis, underlying causes and treatment plan options, including medications if applicable. Consult with your health care team to learn about your diagnosis and treatment plan, including medications if applicable.
Discharge Date and Time
Discharge Date/Time: 10/20/23 16:03
Print Language: DJIBOUTIAN
[2023-10-20 12:53] LABS: COVID-19 Antigen Negative (Negative)
--- NOTE | 2023-10-20 14:00 | CM ---
Case management following for d/c planning
Pt for d/c today to [facility]
Transport arranged for 4PM
Spoke with Merna at [facility] - aware of transport time
Spoke with pts - aware of transport time
Spouse aware pts Farxiga to be supplied by family
Plan - d/c to [facility]
R - [phone]
F - [phone]
[2023-10-20 15:45] VITALS: BP 140/62
== END 2023-10-20 16:03 | DRG 871 ==
LOC: 3 WEST ACU 11:00
PROVIDERS: Clinical Nurse Specialist Family Health; Hospitalist; Nurse Practitioner Family; Physician Assistant; ADMITTING PHYSICIAN Internal Medicine; ATTENDING PHYSICIAN Hospitalist; EMERGENCY PHYSICIAN Emergency Medicine; FAMILY PHYSICIAN Internal Medicine Geriatric Medicine; OTHER PHYSICIAN Internal Medicine Cardiovascular Disease
DX: A41.51 Sepsis due to Escherichia coli [E. coli] (principal); G92.8 Other toxic encephalopathy; I50.23 Acute on chronic systolic (congestive) heart failure; I48.21 Permanent atrial fibrillation; N17.9 Acute kidney failure, unspecified; N39.0 Urinary tract infection, site not specified; I42.9 Cardiomyopathy, unspecified; E87.1 Hypo-osmolality and hyponatremia; E87.20 Acidosis, unspecified; Z66 Do not resuscitate; I11.0 Hypertensive heart disease with heart failure; D69.6 Thrombocytopenia, unspecified; I77.810 Thoracic aortic ectasia; Z95.828 Presence of other vascular implants and grafts; I34.0 Nonrheumatic mitral (valve) insufficiency; I95.9 Hypotension, unspecified; I25.10 Atherosclerotic heart disease of native coronary artery without angina pectoris; E21.0 Primary hyperparathyroidism; E53.8 Deficiency of other specified B group vitamins; E78.5 Hyperlipidemia, unspecified; G89.29 Other chronic pain; M54.50 Low back pain, unspecified; H35.30 Unspecified macular degeneration; M48.061 Spinal stenosis, lumbar region without neurogenic claudication; M25.551 Pain in right hip; M10.9 Gout, unspecified; N40.1 Benign prostatic hyperplasia with lower urinary tract symptoms; R33.8 Other retention of urine; N39.498 Other specified urinary incontinence; H91.90 Unspecified hearing loss, unspecified ear; R29.6 Repeated falls; R13.10 Dysphagia, unspecified; R53.1 Weakness; Z96.651 Presence of right artificial knee joint; Z79.01 Long term (current) use of anticoagulants; Z79.82 Long term (current) use of aspirin; Z79.899 Other long term (current) drug therapy; Z87.891 Personal history of nicotine dependence; Z86.73 Personal history of transient ischemic attack (TIA), and cerebral infarction without residual deficits; Z85.72 Personal history of non-Hodgkin lymphomas; Z82.49 Family history of ischemic heart disease and other diseases of the circulatory system; Z90.81 Acquired absence of spleen; Z92.21 Personal history of antineoplastic chemotherapy; Z95.5 Presence of coronary angioplasty implant and graft; Z98.1 Arthrodesis status; Z88.1 Allergy status to other antibiotic agents; Z11.52 Encounter for screening for COVID-19
CPT/HCPCS: 71046; 73502; 73564; 76770; 80048; 80053; 81003; 81015; 82607; 82746; 83735; 83880; 84439; 84443; 85025; 85027; 85610; 87040; 87070; 87077; 87086; 87149; 87186; 87205; 87811; 93005; 93306; 93971; 97163; 97167; 97530; 97535; 99285

== ENCOUNTER 2023-10-23 04:16 | Emergency (ER) | payer MEDICARE, OTHER, SELFPAY ==
[2023-10-23 04:18] VITALS: BP 110/57; BMI 21.1
--- NOTE | 2023-10-23 04:36 | ED.GENMED ---
History of Present Illness
General
Chief Complaint: Skin Surface Trauma
Source: patient
Time Seen by Provider: 10/23/23 04:24
Travel History
Have you had any contact with someone who has COVID-19?: No
Do you have any symptoms of coronavirus? Fever > 100 degrees, chills, cough, shortness of breath, sore throat, loss of taste or smell, muscle aches, or headache?: No
History of Present Illness
History of Present Illness:
87-year-old male with history of atrial fibrillation on Eliquis who presents with a bleeding wound up near his left clavicle. Staff at the home reported that he scratched it. The patient states he cannot recall scratch the patient denies any
complaints.
Past History
Past History
ED Past Medical History: Arrthythmia, CAD, Cancer, HTN and Other
ED Past Surgical History: Orthopedic
Social History
Tobacco: Non-smoker
Alcohol: None
Drug: None
Personal:
Living: with family
Employment: Retired
Family History
Family History: Other (Noncontributory)
Phy Exam
Physical Exam
Physical Exam:
CONSTITUTIONAL Vital signs reviewed, Patient alert and oriented to person, place. Well-appearing
HEAD atraumatic, normocephalic.
EYES eyelids normal to inspection, Extraocular muscles intact, Conjunctiva normal, Sclera normal.
NECK normal range of motion, Trachea midline, no jugular venous distention.
Chest small wound noted at the head of the clavicle with persistent oozing/bleeding
RESP no respiratory distress
BACK No obvious deformities
UPPER EXTREMITY Gross Range of motion normal, gross motor strength normal
LOWER EXTREMITY Gross range of motion normal, Gross motor strength normal
NEURO Speech normal, No focal motor deficits include, Cranial Nerves intact to screening exam.
SKIN Skin warm, dry, and normal in color.
Course
Vital Signs
Initial and Last Documented VS:
Initial Vital Signs
Temp Pulse Resp BP Pulse Ox
97.4 F 52 16 110/57 96
10/23/23 04:18 10/23/23 04:18 10/23/23 04:18 10/23/23 04:18 10/23/23 04:18
Last Documented Vital Signs
Temp Pulse Resp BP Pulse Ox
97.4 F 52 16 110/57 96
10/23/23 04:18 10/23/23 04:18 10/23/23 04:18 10/23/23 04:18 10/23/23 04:18
Procedures
Laceration Closure
Left Chest:
Status of Wound: clean
Size of Wound in cm: 0.5
Description of Wound Edges: flap-well vascularized
Preparation: cleaned with Betadine
Anesthesia: 1% Lidocaine with epi
Skin Closure Material: 5-0 nylon
Number of sutures: 1
Additional information:
Hemostatic [id number]-[id number]-[id number] suture placed with excellent hemostasis result
MDM/Problems Addressed
MDM/Problems Addressed:
Therapeutic coagulopathy, bleeding wound
*Pulse Oximetry
Patient hypoxic: no
*Critical Care Note
Total Time (30-74mins, 75-104mins- exclusive of procedures): Not Applicable
Data Reviewed
Source: patient
Prescriptions/Medications Considered But Not Given:
Considered Kcentra but small oozing
Patient Management
Escalation/DeEscalation of care consider admission/obs:
Podzoz-nx-ilceg suture applied and good hemostasis
ED Attending Note
-
Portions of this chart may have been created with voice recognition software.� Occasional wrong word or��sound alike� substitutions may have occurred due to the inherent limitations of voice recognition software.
Discharge Plan
Departure
Patient Disposition: Home (Routine Discharge)
Date of Disposition: 10/23/23
Time of Disposition: 04:37
Patient with high blood pressure during this ER visit?: No
Discharge Problem:
Bleeding from wound
Instructions: Wound Care (DC)
Prescriptions:
No Action
aspirin 81 MG tablet,delayed release (DR/EC)
81 mg PO HS
atorvastatin 20 MG tablet
20 mg PO QPM 0RF
tamsulosin 0.4 MG capsule
0.4 mg PO DAILY 0RF
finasteride 5 MG tablet
5 mg PO HS
nitroglycerin 0.4 MG tablet, sublingual
0.4 mg sublingual PRN PRN (Reason: As Needed chest pain)
allopurinol 100 mg Tablet
100 mg PO DAILY
metoprolol succinate 25 mg Tablet Extended Release 24 Hr
25 mg PO DAILY
hydrocodone-acetaminophen 5-300 mg Tablet
1 tab PO QIDPRN PRN (Reason: severe pains)
furosemide 20 MG tablet
20 mg PO DAILY
Rx Instructions:
Please take DAILY- do not skip any days.
Eliquis 5 mg Tablet
5 mg PO BID Qty: 60 0RF
dapagliflozin propanediol 10 mg Tablet
10 mg PO DAILY Qty: 30 0RF
cefdinir 300 mg capsule
300 mg PO BID Qty: 20 0RF
cyanocobalamin (vitamin B-12) 1,000 mcg capsule
1,000 mcg PO DAILY Qty: 30 0RF
Referrals:
Michael Bob MD [Family Provider] -
Activity Restrictions/Additional Instructions:
Return immediately for worsening bleeding, swelling, redness or any other concerns. Your sutures can be removed in 7 days.
Interventions
Interventions:
*Risk Screen - Suicide Last Done: 10/23/23 04:18
*General Assessment Last Done: 10/23/23 04:18
*Neglect/Abuse Screening Last Done: 10/23/23 04:18
ED- Fall Risk Assessment Last Done: 10/23/23 04:18
*ED COVID-19 Vaccine History Last Done: 10/23/23 04:18
ED-Skin Assessment Last Done: 10/23/23 04:25
Discharge Date and Time
Print Language: FRISIAN
== END 2023-10-23 05:26 | disposition home or self-care (01) ==
LOC: EMR 04:16
PROVIDERS: EMERGENCY PHYSICIAN Emergency Medicine; FAMILY PHYSICIAN Family Medicine
DX: S21.102A Unspecified open wound of left front wall of thorax without penetration into thoracic cavity, initial encounter (principal); X58.XXXA Exposure to other specified factors, initial encounter; I48.91 Unspecified atrial fibrillation; I25.10 Atherosclerotic heart disease of native coronary artery without angina pectoris; I10 Essential (primary) hypertension; Z79.01 Long term (current) use of anticoagulants; Z79.82 Long term (current) use of aspirin; Z88.1 Allergy status to other antibiotic agents
CPT/HCPCS: 99283; 12001

== ENCOUNTER 2023-10-23 18:53 | Inpatient (IN) | payer MEDICARE, OTHER, SELFPAY ==
[2023-10-23] VITALS (12 sets, daily range): BP systolic 85–122; BP diastolic 38–68; BMI 21.3
--- NOTE | 2023-10-23 14:28 | ED.GENMED ---
History of Present Illness
General
Chief Complaint: Catheter/Tube Problem
Source: patient
Time Seen by Provider: 10/23/23 14:20
Travel History
Have you had any contact with someone who has COVID-19?: No
Do you have any symptoms of coronavirus? Fever > 100 degrees, chills, cough, shortness of breath, sore throat, loss of taste or smell, muscle aches, or headache?: No
History of Present Illness
History of Present Illness:
87-year-old male who presents to the emergency room from [facility] for a placement of a Moran catheter. Patient had an order for Moran catheter replacement today. With the attempt at the place the Moran the patient pulled it out. There was some
bleeding at the meatus prompting him to be sent to the emergency room. No other plaints. Patient noted to be somewhat hypotensive after Moran placement here.
Past History
Past History
ED Past Medical History: Arrthythmia, CAD, Cancer, HTN and Other
ED Past Surgical History: Orthopedic
Social History
Tobacco: Non-smoker
Alcohol: None
Drug: None
Personal:
Living: with family
Employment: Retired
Family History
Family History: Other (Noncontributory)
Phy Exam
Physical Exam
Physical Exam:
General: Awake, Alert, Oriented X3. Appears chronically ill
Vitals: Hypotensive
Head: Atraumatic
Eyes: Pupils equal, EOMI
Throat: Airway intact, no exudates, somewhat dry mucosa
Neck: Trachea midline
Lungs: Clear and equal b/l
Heart: Regular rate, no murmurs
Abd: Soft, Nontender, No pulsatile mass
Neuro: Nonfocal
Skin: Warm, dry, purpuric type lesions noted face which are chronic
Extremities: pulses equal b/l, no edema
Course
Orders/Labs/Results
Orders:
Orders
10/23/23 Breakfast
Cholesterol Lowering
At Your Request: Full Participation
Cholesterol Lowering: Sodium, 2 Gram
10/23/23 14:26
0.9% Sodium Chloride 500 ml [Nss] 500 ml IV BOLUS
10/23/23 14:29
Basic Metabolic Panel Urgent
Complete Blood Count/With Diff Urgent
NT-proBNP Urgent
Comment: ADD ON
10/23/23 14:57
Urinalysis Reflex To Culture Urgent
Date Specimen was Collected: 10/23/23
Time Specimen was Collected: 14:44
Urine Microscopic Reflex Cult Urgent
10/23/23 17:28
CR Chest - 2 Views Urgent
Comment:
Reason For Exam: altered mental status
10/23/23 17:31
Electrocardiogram (*1) Urgent
Reason for Study: Bradycardia / Tachycardia
EKG- Treatment ONCE
10/23/23 17:32
Add On- LAB Routine
Tests Added?: probnp
10/23/23 18:04
Admit/Transfer Patient As Directed
Co-Sign Provider:
Level of Care: Inpatient admission
Assign to:: Telemetry
Physician / Group: kori
Diagnosis: bradycardia
Reason for Telemetry: Arrhythmia
Date to Stop Telemetry: 10/26/23
Time to Stop Telemetry: 11:00
Reason for Hospitalization: bradycardia
Expected length of stay greater than two midnights?: Yes
ELOS- Estimated Length of Stay in days: 3
I certify the patient meets the requirements for IP care: Yes
10/23/23 18:06
Code Status As Directed
Resuscitation Status: Do not resuscitate
Reached after discussion with pt or family/Healthcare POA: Yes
DNR Bracelet Application ONCE
10/23/23 19:47
Acetaminophen [Tylenol] 650 mg PO Q4HPRN PRN
Bisacodyl [Dulcolax] 10 mg RECTAL [id number] PRN
Docusate W/Senna [Senokot-S] 1 tablet PO BIDPRN PRN
Polyethylene Glycol Powder [Miralax] 17 grams PO DAILYPRN PRN
10/23/23 19:47
CARDIOLOGY CONSULT Routine
Consulting Provider: Piter Greene
Was physician already notified: Yes
Activity As Directed
Activity Level: As Tolerated
Intake/ Output As Directed
Frequency: Per unit guidelines
Vital Signs As Directed
Frequency: Per unit guidelines
Weight As Directed
Frequency: Daily
10/23/23 20:00
Apixaban [Eliquis] 5 mg PO BID
Cefdinir [Omnicef] 300 mg PO BID
10/23/23 20:03
Hydrocodone 5/APAP 325 [[place] 5/325] 1 tablet PO Q6HPRN PRN
10/23/23 22:00
Aspirin Low Dose EC [Aspir Low (Enteric Coated)] 81 mg PO HS
Finasteride [Proscar] 5 mg PO HS
10/24/23 06:00
Occupational Therapy Consult [Ot Eval And Treat] IN AM
Physical Therapy Consult [Pt Eval And Treat] IN AM
Activity Level: As Tolerated
10/24/23 08:00
Allopurinol [Zyloprim] 100 mg PO DAILY
Cyanocobalamin [Vitamin B-12] 1,000 mcg PO DAILY
Dapagliflozin [Farxiga] 10 mg PO DAILY
Tamsulosin [Flomax] 0.4 mg PO DAILY
10/24/23 08:17
Basic Metabolic Panel IN AM
Complete Blood Count/No Diff IN AM
Cortisol, Random IN AM
TSH Reflex To Free T4 IN AM
10/24/23 18:00
Atorvastatin [Lipitor] 20 mg PO QPM
10/25/23 06:00
Basic Metabolic Panel IN AM
Complete Blood Count/No Diff IN AM
10/26/23 06:00
Basic Metabolic Panel IN AM
Complete Blood Count/No Diff IN AM
10/26/23 11:00
DC Protocol for Telemetry ONCE
10/27/23 06:00
Basic Metabolic Panel IN AM
Complete Blood Count/No Diff IN AM
10/28/23 06:00
Basic Metabolic Panel IN AM
Complete Blood Count/No Diff IN AM
Abnormal Lab Results
10/23/23 10/23/23
14:29 14:57
RBC 2.77 L 10^6/uL
(4.70-6.10)
Hgb 9.8 L g/dL
(13.0-18.0)
Hct 27.0 L %
(39.0-52.0)
MCV 97.5 H fL
(80.0-94.0)
MCH 35.4 H pg
(27.0-31.0)
RDW 15.5 H %
(11.5-14.5)
Abs Immat Gran (auto) 0.1 H 10^3/uL
(0-0.05)
Absolute Neuts (auto) 8.0 H 10^3/uL
(1.4-6.5)
Absolute Lymphs (auto) 0.9 L 10^3/uL
(1.2-3.4)
Immature Gran % 1.0 H %
(0-0.5)
Neutrophils % 82.7 H %
(42.2-75.2)
Lymphocytes % 9.5 L %
(20.5-51.1)
Sodium 129 L mmol/L
(135-145)
Chloride 97 L mmol/L
(98-107)
BUN 71 H mg/dl
(9-20)
Glucose 155 H mg/dl
(70-99)
Ur Occult Blood Reflex 1+ A
(Negative)
Urine RBC 11-15 A /HPF
(0-2)
Urine Bacteria (Reflex) Few A
(Negative)
Urine Glucose 2+ A
(Negative)
10/23/23 14:29
10/23/23 14:29
Vital Signs
Initial and Last Documented VS:
Initial Vital Signs
Temp Pulse Resp
98.3 F 77 20
10/23/23 14:03 10/23/23 14:03 10/23/23 14:03
Last Documented Vital Signs
Temp Pulse Resp BP Pulse Ox
97.4 F 66 16 104/49 97
10/24/23 11:24 10/24/23 11:24 10/24/23 11:24 10/24/23 11:24 10/24/23 07:01
MDM/Problems Addressed
Differential Diagnosis Includes:
Urethral injury, urinary retention, renal failure, electrode abnormality
MDM/Problems Addressed:
Patient is recent to the emergency because they were unable to pass a Moran at the intermediate. We were able to easily pass a Moran catheter here and retrieved over 600 cc of urine. However patient noted to be hypotensive and has remained
hypotensive. Clinically he looks dry. He was recently hospitalized for CHF and was diuresed. Patient given 500 cc bolus of normal saline which helped bring his blood pressure up some but he remains somewhat hypotensive. He is also noted to be
bradycardic with heart rate in the low 40s at times. He is on metoprolol. Looking back at his hospital records from this last admission it seems that Entresto needed to be discontinued due to low blood pressures. There may be several medication
adjustments necessary. Also he appears dry and I do not believe it would be safe to be aggressive with hydration here in the emergency room. Therefore we will hospitalize the patient for further treatment and evaluation.
Chronic conditions affecting care: HTN, Arrhythmia and Other (CHF)
*Radiology
Radiology exam reviewed: radiology read reviewed
*Pulse Oximetry
Patient hypoxic: no
*Critical Care Note
Total Time (30-74mins, 75-104mins- exclusive of procedures): Not Applicable
ED Attending Note
-
Portions of this chart may have been created with voice recognition software.� Occasional wrong word or��sound alike� substitutions may have occurred due to the inherent limitations of voice recognition software.
Discharge Plan
Departure
Patient Disposition: Admit
Date of Disposition: 10/23/23
Time of Disposition: 17:27
Presentation/result/management discussed w/ accepting MD/DO: Hospitalist
Condition: Fair
Discharge Problem:
Acute dehydration, Bradycardia
Interventions
Interventions:
*Risk Screen - Suicide Last Done: 10/23/23 14:03
*General Assessment Last Done: 10/23/23 14:03
*Neglect/Abuse Screening Last Done: 10/23/23 14:03
ED- Fall Risk Assessment Last Done: 10/23/23 19:42
*ED COVID-19 Vaccine History Last Done: 10/23/23 15:05
*Nursing Disposition Last Done: 10/23/23 19:42
PI-Lvehcy-Pbljcacznp Assessment Last Done: 10/23/23 15:00
ED-Male Genitourinary Assessment Last Done: 10/23/23 15:00
Discharge Date and Time
Discharge Date/Time: 10/23/23 19:40
[2023-10-23] MEDS: NSS 500 IV (14:30)
[2023-10-23 14:44] LABS: % Basophils 0.3 % (0-2); % Eosinophils 0.2 % (0-6); % Lymphocytes 9.5 % (20.5-51.1); % Monocytes 6.3 % (1.7-9.3); % Neutrophils 82.7 % (42.2-75.2); Absolute Immature Granulocytes 0.1 10^3/uL (0-0.05); Absolute Lymphocytes 0.9 10^3/uL (1.2-3.4); Absolute Monocytes 0.6 10^3/uL (0.1-0.6); Hemoglobin 9.8 g/dL (13.0-18.0); Mean Corp Hgb Conc. 36.3 g/dL (33.0-37.0); Mean Corpuscular Hgb 35.4 pg (27.0-31.0); Mean Corpuscular Volume 97.5 fL (80.0-94.0); Nucleated Red Blood Cells % 0 % (-); Platelet Count 185 10^3/uL (130-400); Red Blood Cell Count 2.77 10^6/uL (4.70-6.10); Red Cell Dist. Width 15.5 % (11.5-14.5); White Blood Cell Count 9.7 10^3/uL (4.8-10.8)
[2023-10-23 15:07] LABS: Urine Albumin Negative (Neg - Trace); Urine Bilirubin Negative (Negative); Urine Character Clear (Clear); Urine Color Yellow; Urine Glucose 2+ (Negative); Urine Ketone Negative (Negative); Urine Leukocyte Negative (Negative); Urine Nitrite Negative (Negative); Urine Occult Blood 1+ (Negative); Urine Specific Gravity 1.015 (<1.030); Urine Urobilinogen Negative (Neg - 1+)
[2023-10-23 15:10] LABS: Blood Urea Nitrogen 71 mg/dl (9-20); Calcium 8.7 mg/dl (8.4-10.2); Carbon Dioxide 24 mmol/L (22-30); Chloride 97 mmol/L (98-107); Estimated Creatinine Clearance 49 ml/min; Glucose 155 mg/dl (70-99); Potassium 4.4 mmol/L (3.5-5.1); Sodium 129 mmol/L (135-145); eGFR 59.26
[2023-10-23 15:25] LABS: Urine Squamous Cell 0-2 /LPF (Few)
[2023-10-23 15:26] LABS: Urine Bacteria Few (Negative); Urine White Cell 0-2 /HPF (0-5)
--- NOTE | 2023-10-23 17:28 | HPS.HSE ---
Addendum entered and electronically signed by Arturo Davidson MD 10/23/23 18:20:
I saw and examined the patient.
The PROVIDER RELATIONS CONSULTANT or PA's note was reviewed and I agree with the note.
Comment: 87-year-old male with past medical history of pulmonary fibrillation, CAD, hypertension, hyperlipidemia, aortic regurgitation, pulmonary artery hypertension, CHF, hyperparathyroidism, BPH came to the hospital after removal of Haynes
catheter. Haynes catheter was replaced in ED. While in the ER patient was found to have significant bradycardia. Consult cardiology. Hold metoprolol. Chest x-ray pending. Check proBNP. Admit to telemetry. Check TSH
General: Well Developed, Well Nourished and No Apparent Distress
HEENT: NormoCephalic, Moist mucous membranes and Atraumatic
Respiratory: Clear
Cardiac: S1/S2 and Regular Rhythm; No Murmur or Rub
GI: Soft, Non Tender, Non Distended and Normal Bowel Sounds; No Organomegaly
Rectal: Deferred by Provider
Musculoskeletal: No Clubbing, No Cyanosis and Other (Chronic edema bilateral lower extremities)
Skin: Rash and Other (Skin tear on his back, crusted blisters around his mouth)
Neuro: AO x 3 and Nonfocal/grossly intact
Psych: Calm
I spent a total of 76 minutes with the patient or on the floor. More than 50% of this time involved counseling and coordination of care.
Original Note:
Family Physician
-
Family Physician: Michael Bob MD
Chief Complaint
-
haynes out
History of Present Illness
87-year-old male with PMH for CAD,HTN, A-fib, hypertension, hyperlipidemia, aortic regurgitation, systolic heart failure, BPH, hyperparathyroidism presented to us placement of Haynes catheter. Patient denied pulling the catheter out, patient not
sure how the catheter came out. Patient stated chronic back pain for which he takes Vicodin. Patient was also here earlier in the morning for skin tear on his neck. Patient denied any headache, dizziness, syncopal episode. Patient denied chest
pain or short of breath. Patient denied abdominal pain, nausea, vomiting, diarrhea. Patient was noted to be hypotensive, bradycardic in ER
Patient noted hypotensive and bradycardic in ER. He received fluids in the ER. Admitting for further management
Medical History
Past Medical History
Past Medical History: Reports Other
Additional Past Medical History:
Coronary artery disease
Atrial fibs
Hypertension
Bilateral carotid disease
Hyperlipidemia
Aortic regurgitation
Hypertension
Acute systolic heart failure
BPH
Hyperparathyroidism
colonic polyps
Past Surgical History: Reports Other
Additional Past Surgical History:
Cardiac stent
Right TK R
Right carotid stent
laminectomy
Splenectomy
Partial discectomy
Social History
Tobacco: Non-smoker
Alcohol: None
Drug: None
Personal: Single
Living: Alf
Family History
Family History: Not pertinent
Allergies / Home Medications
Allergies reflects when Allergies were last updated in [employer].
Home Medications with original date entered in [employer]
Allergy/Medication List:
Allergies
Allergy/AdvReac Type Severity Reaction Status Date / Time
erythromycin base Allergy diarrhea Verified 10/23/23 14:16
Home Medications
aspirin 81 mg tablet,delayed release 81 mg PO HS Blood Clot Prevention/Tx 04/20/19
atorvastatin 20 mg tablet 20 mg PO QPM 04/23/19
tamsulosin 0.4 mg capsule 0.4 mg PO DAILY 04/23/19
finasteride 5 mg tablet 5 mg PO HS Urinary Issue 04/29/19
nitroglycerin 0.4 mg sublingual tablet 0.4 mg sublingual [id number] PRN chest pain 02/07/21
allopurinol 100 mg tablet 100 mg PO DAILY Gout 10/11/23
hydrocodone 5 mg-acetaminophen 300 mg tablet 1 tab PO Q6HPRN PRN severe pains 10/11/23
metoprolol succinate 25 mg tablet,extended release 24 hr 25 mg PO DAILY Heart Disease/Condition 10/11/23
furosemide 20 mg tablet 20 mg PO DAILY Fluid Retention/Swelling 10/12/23
apixaban 5 mg tablet (Eliquis) 5 mg PO BID #60 tabs 10/19/23
cefdinir 300 mg capsule 300 mg PO BID #20 caps 10/19/23
dapagliflozin propanediol 10 mg tablet 10 mg PO DAILY #30 tabs 10/19/23
cyanocobalamin (vitamin B-12) 1,000 mcg capsule 1,000 mcg PO DAILY #30 caps 10/20/23
bisacodyl 10 mg rectal suppository (Dulcolax (bisacodyl)) 10 mg NV DAILYPRN PRN IF NO BM AFTR MOM 10/23/23
magnesium hydroxide 400 mg/5 mL oral suspension (Milk of Magnesia) 2,400 mg PO [id number] PRN CONSTIPATION 10/23/23
sodium phosphates 19 gram-7 gram/118 mL enema (Fleet Enema) 118 ml NV DAILYPRN PRN IF NO BM AFTR DULCOLAX 10/23/23
Review of Systems
-
Constitutional: Reports No Symptoms
EENT: Reports No Symptoms
Respiratory: Reports No Symptoms
Cardiac: Reports No Symptoms
Abdomen/GI: Reports No Symptoms
: Reports No Symptoms
Musculoskeletal: Reports Edema (Chronic edema) and Other (Back pain)
Skin: Reports No Symptoms
Neurological: Reports No Symptoms
Endocrine: Reports No Symptoms
Hematologic/Lymphatic: Reports No Symptoms
Psych: Reports No Symptoms
Physical Exam
Vital Signs
Vital Signs
Temp Pulse Resp BP Pulse Ox
98.3 F 54 16 100/43 100
10/23/23 14:03 10/23/23 16:30 10/23/23 16:30 10/23/23 16:30 10/23/23 14:16
Physical Exam
General: Well Developed, Well Nourished and No Apparent Distress
HEENT: NormoCephalic, Moist mucous membranes and Atraumatic
Respiratory: Clear
Cardiac: S1/S2 and Regular Rhythm; No Murmur or Rub
GI: Soft, Non Tender, Non Distended and Normal Bowel Sounds; No Organomegaly
Rectal: Deferred by Provider
Musculoskeletal: No Clubbing, No Cyanosis and Other (Chronic edema bilateral lower extremities)
Skin: Rash and Other (Skin tear on his back, crusted blisters around his mouth)
Neuro: AO x 3 and Nonfocal/grossly intact
Psych: Calm
Laboratory Results
-
10/23/23 14:29
10/23/23 14:29
Data Reviewed
-
Lab Data: Labs Reviewed by me
Impression/Plan
-
# Bradycardia
# History of A-fib
-EKG with impression of A-fib with PVCs
-Heart rate 40-60
-Hold metoprolol
-Eliquis continued
-cardiology consulted
# Hypotension
-Systolic BPs in the 90s, diastolic BPs in 60s
-Received normal saline in ER
-Continue to monitor vital signs
# Anemia of chronic disease
-Hemoglobin stable at 9.8
-No active bleeding
-Continue to trend
# Hyponatremia likely hypovolemic
-Sodium 129
-Received fluids in the ER
-Check BMP in a.m.
#BPH/urinary retention
-Haynes catheter placed previous admission
-Reinserted in ER
-Flomax continued
-Finasteride continued
#chronic systolic congestive heart failure
-Echo 09/16/2023 Mildly reduced left ventricular systolic function. Global hypokinesis. LV ejection fraction is 40-45% by visual assessment.
-Bilateral lower extremity swelling noted
-Denies dyspnea. Not hypoxic.
-weight up from few days ago
-dapagliflozin continued
-Chest x-ray pending
-BNP pending
-Hold Lasix at this time
#E-coli bacteremia from urinary source.
-Urine cs growing Ecoli
-Cefdinir continued
#Vitamin B12 deficiency/Folate deficiency
-B12 continued
#.Generalized weakness/ Ambulatory dysfunction
-PT/OT consulted
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
Hx of splenectomy
#CAD/Multiple cardiac stents
-Hx carotid stent
-Aspirin continued
# hyperlipidemia
-Statin continued
#Chronic lumbar back pain
Neurostimulator in back with removal
-Vicodin continued
#Gout
-Allopurinol continued
#neck skin tear/multiple crusted wound around mouth
-sutures on neck wound
#Macular degeneration
DVT prophylaxis -Eliquis
DNR
--- NOTE | 2023-10-23 18:20 | W.PN.UPDATE ---
Update Note
Progress Note Update
For billing purpose only
[2023-10-23 19:16] LABS: NT-proBNP 6390 pg/ml
--- NOTE | 2023-10-23 20:00 | PTCARENOTE ---
Pt transferred from ED. Pt AAOX3, able to make needs known, pt celia in the 50s. Pt oriented to unit, call henderson within reach, bed in lowest position, bed alarm applied.
[2023-10-23] MEDS: NORCO 5/325 1 TABLET PO (20:51)
[2023-10-23] MEDS: ASPIR LOW (ENTERIC COATED) 81 MG PO (20:51)
[2023-10-23] MEDS: OMNICEF 300 MG PO (20:51)
[2023-10-23] MEDS: ELIQUIS 5 MG PO (20:51)
[2023-10-23] MEDS: PROSCAR 5 MG PO (20:52)
[2023-10-24] VITALS (8 sets, daily range): BP systolic 101–122; BP diastolic 45–69; PULSE 61; O2SAT 97–98; BMI 21.3
[2023-10-24] MEDS: OMNICEF 300 MG PO ×2 (08:13→21:27)
[2023-10-24] MEDS: ELIQUIS 5 MG PO ×2 (08:13→21:26)
[2023-10-24] MEDS: FARXIGA 10 MG PO (08:14)
[2023-10-24] MEDS: ZYLOPRIM 100 MG PO (08:14)
[2023-10-24] MEDS: VITAMIN B-12 1000 MCG PO (08:14)
[2023-10-24] MEDS: FLOMAX 0.400000000000000022 MG PO (08:14)
[2023-10-24 10:13] LABS: Hematocrit 23.9 % (39.0-52.0); Hemoglobin 8.5 g/dL (13.0-18.0); Mean Corp Hgb Conc. 35.6 g/dL (33.0-37.0); Mean Corpuscular Volume 98.4 fL (80.0-94.0); Platelet Count 196 10^3/uL (130-400); Red Blood Cell Count 2.43 10^6/uL (4.70-6.10); Red Cell Dist. Width 15.6 % (11.5-14.5); White Blood Cell Count 8.2 10^3/uL (4.8-10.8)
[2023-10-24 10:40] LABS: Blood Urea Nitrogen 66 mg/dl (9-20); Calcium 8.5 mg/dl (8.4-10.2); Carbon Dioxide 26 mmol/L (22-30); Chloride 98 mmol/L (98-107); Estimated Creatinine Clearance 51 ml/min; Glucose 93 mg/dl (70-99); Potassium 4.5 mmol/L (3.5-5.1); Sodium 131 mmol/L (135-145); eGFR > 60.00
[2023-10-24 11:10] LABS: Cortisol, Random 27.6 ug/dl; TSH Reflex To Free T4 1.18 uIU/ml (0.47-4.68)
--- NOTE | 2023-10-24 11:47 | W.PN.HOSP.TC ---
Addendum entered and electronically signed by Han Blackburn MD 10/24/23 13:25:
Updated spouse over the phone in details.
Original Note:
Today's Communication/Plan
-
Monitor on tele
Off toprol
cont po abx
Cards recs
Assessment / Plan
Assessment / Plan
Persistent A-fib with bradycardia with pauses
-Toprol was discontinued on admission
-Telemetry reviewed
-Continue Eliquis.
-Await cards input
chronic systolic congestive heart failure
-2D echo 12/10/2020: EF 40%, moderately reduced systolic function. Global hypokinesis, mild MR/TR. Mild dilated aortic root 3.3 cm
-Increasing leg swelling R >> L causing ambulatory dysfunction
-TTE midrange EF 40-45%, mod MR, PAP of 64mmHg
-Continue with Lasix. Entresto was recently discontinued.
-proBNP elevated compared to previous admit. CXR negative for pulm edema.
Loren-oral erythematous papular rash
-not pruritic
-Not vesicular
-Denies hx of herpes zoster rash
-monitor for now
-avoid steroids
-?loren-oral dermatitis
Recent E-coli bacteremia
-bacteremia likely from urinary source. GB US showing wall thickening, no n/v. no abd pain.
-Urine cs growing Ecoli,
-Renal bladder us negative hydro/stone
-Surveillance cultures was negative
-Ceftriaxone was transitioned to cefdinir and complete course.
Mild cognitive impairment
TME - resolved
-patient have episode of forgetfulness at home.
-not on any sedative medication except home dose of hydrocodone
-tremors are chronic.
BPH with chronic urinary incontinence
Urinary retention
-Continue tamsulosin 0.4 mg daily, finasteride 5 mg at bedtime
-Moran placed at [facility]
Essential HTN
-Cont lasix. Toprol discontinued
Generalized weakness
Ambulatory dysfunction
-Patient having difficulty lifting right leg with significant swelling
-Recent Lower extremity venous Doppler negative
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
Hx of splenectomy
HLD
CAD/Multiple cardiac stents
Hx carotid stent
Chronic lumbar back pain
Neurostimulator in back with removal
Gout
Macular degeneration
DVT prophylaxis -Eliquis
DNR per patient
Anticipated Discharge: > 48 hours
Subjective/Interval History
-
Date of Service: October 24, 2023
Overnight with multiple episode of bradycardia with pauses
asymptomatic
Objective Data
-
Labs:
Laboratory Results
10/24/23
08:17
WBC 8.2
Hgb 8.5 L
Hct 23.9 L
Plt Count 196
Sodium 131 L
Potassium 4.5
Chloride 98
Carbon Dioxide 26
BUN 66 H
Creatinine 1.1
Glucose 93
Calcium 8.5
Vital Signs:
Vital Signs
Temp Pulse Resp BP Pulse Ox
97.4 F 66 16 104/49 97
10/24/23 11:24 10/24/23 11:24 10/24/23 11:24 10/24/23 11:24 10/24/23 07:01
I&O
10/23/23 10/24/23 10/25/23
06:59 06:59 06:59
Output Total 1700 / 1700
Balance -1700 / -1700
Physical Exam
-
General: Comfortable and Cachectic
HEENT: Other (loren-oral rash); Negative Oxygen
Respiratory: Clear to Auscultation
Cardiac: Regular Rhythm and S1/S2; Negative Murmur or Rub
GI: Soft, Nontender and Nondistended
Musculoskeletal: Edema, Right Lower Extrem and Edema, Left Lower Extrem
Neuro: Awake, Alert, Oriented, No Motor Deficits and Nonfocal/Grossly Intact
Psych: Calm
Data Reviewed
-
Total Time Spent with Patient (in minutes): 55
--- NOTE | 2023-10-24 15:50 | CON.CAR ---
Consultation
Consultation Request
Date/Time Consultation Requested: 10/24/2023
Date/Time Consultation Performed: 10/24/2023
Requesting Provider: Dr. Blackburn
Performing Provider: Dr. Greene
Reason for Consultation: Bradycardia
Medical History
-
Chief Complaint: Traumatic Moran/bradycardia
History of Present Illness:
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
dysfunction admitted after traumatic Moran insertion (patient accidentally pulled out and he needed to be reinserted). Cardiology was consulted for bradycardia. Patient is currently somnolent and unable to answer any questions.
Past Medical History
Past Medical History: Arrhythmias (Permanent A-fib), CAD, CHF, HTN and Hypercholesterolemia
Past Surgical History: Other (Splenectomy)
Social History
Tobacco: Former Smoker
Alcohol: Daily (1 glass of of wine)
Drug: None
Personal:
Living: With Family
Employment: Retired
Family History
Family History: Reviewed & Not Pertinent
Allergies / Home Medications
Allergy/AdvReac Type Severity Reaction Status Date / Time
erythromycin base Allergy diarrhea Verified 10/23/23 14:16
�Medication �Instructions �Recorded �Confirmed �Type
aspirin 81 mg tablet,delayed 81 mg PO HS Blood Clot 04/20/19 10/23/23 History
release Prevention/Tx
atorvastatin 20 mg tablet 20 mg PO QPM 04/23/19 10/23/23 Rx
tamsulosin 0.4 mg capsule 0.4 mg PO DAILY 04/23/19 10/23/23 Rx
finasteride 5 mg tablet 5 mg PO HS Urinary Issue 04/29/19 10/23/23 History
nitroglycerin 0.4 mg sublingual 0.4 mg sublingual [id number] PRN 02/07/21 10/23/23 History
tablet chest pain
allopurinol 100 mg tablet 100 mg PO DAILY Gout 10/11/23 10/23/23 History
hydrocodone 5 mg-acetaminophen 300 1 tab PO Q6HPRN PRN severe pains 10/11/23 10/23/23 History
mg tablet
metoprolol succinate 25 mg 25 mg PO DAILY Heart 10/11/23 10/23/23 History
tablet,extended release 24 hr Disease/Condition
furosemide 20 mg tablet 20 mg PO DAILY Fluid 10/12/23 10/23/23 History
Retention/Swelling
apixaban 5 mg tablet (Eliquis) 5 mg PO BID #60 tabs 10/19/23 10/23/23 Rx
cefdinir 300 mg capsule 300 mg PO BID #20 caps 10/19/23 10/23/23 Rx
dapagliflozin propanediol 10 mg 10 mg PO DAILY #30 tabs 10/19/23 10/23/23 Rx
tablet
cyanocobalamin (vitamin B-12) 1,000 mcg PO DAILY #30 caps 10/20/23 10/23/23 Rx
1,000 mcg capsule
bisacodyl 10 mg rectal suppository 10 mg UT DAILYPRN PRN IF NO BM 10/23/23 10/23/23 History
(Dulcolax (bisacodyl)) AFTR MOM
magnesium hydroxide 400 mg/5 mL 2,400 mg PO [id number] PRN 10/23/23 10/23/23 History
oral suspension (Milk of Magnesia) CONSTIPATION
sodium phosphates 19 gram-7 118 ml UT DAILYPRN PRN IF NO BM 10/23/23 10/23/23 History
gram/118 mL enema (Fleet Enema) AFTR DULCOLAX
Review of Systems
-
Unable to obtain full review of systems at this time due to: Other (Patient currently somnolent)
Physical Exam
Vital Signs
Temp Pulse Resp BP Pulse Ox
97.9 F 79 18 121/69 92
10/24/23 15:01 10/24/23 15:01 10/24/23 15:01 10/24/23 15:01 10/24/23 15:01
Lab Results
10/24/23 08:17
10/24/23 08:17
Lse-U-Kdknmzhhsxs Pept 6390 pg/ml 10/23/23 14:29
Physical Exam
General: No Apparent Distress
HEENT: Normocephalic
Respiratory: Rhonchi
Cardiac: Irregular Rhythm, Murmur (06/22) and Peripheral Edema (Trace-1+)
Breast: N/A
GI: Soft
Rectal: Deferred by Provider
Musculoskeletal: Edema (Trace-1+)
Skin: Warm
Neuro: Other (Arousable, but somnolent)
Psych: Calm
Impression / Plan
-
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
dysfunction admitted after traumatic Moran insertion (patient accidentally pulled out and he needed to be reinserted). Cardiology was consulted for bradycardia.
Permanent atrial fibrillation/primarily asymptomatic bradycardia:
-Do not resume metoprolol succinate 25 mg at this time due to bradycardia; patient can follow-up with Cardiology as an outpatient.
-Oral Anticoagulation: Continue Eliquis.
-[id number]: Score at least 5 (Heart failure, HTN, age 75 or more, Vascular disease)
CAD:
-Currently stable.
-PCI 2008
-Cath 01/2021: Moderate coronary artery disease in the terminal RCA and the distal LAD. Patent LAD stents.
-Continue aspirin and atorvastatin.
Chronic ICM/HFrEF (LVEF 40-45%):
-Volume status appears to be relatively stable.
-Continue furosemide 20 mg PO daily.
-Continue Farxiga.
-Further GDMT limited by low blood pressure (patient was previously on Entresto which was recently discontinued due to hypotension).
Moderate TR:
-Continue current dose of Lasix.
HTN:
-Controlled.
Ambulatory dysfunction, multiple falls, per primary
PASQUALE stent (2010)
Non-Hodgkin's lymphoma, in remission
Splenectomy
Chronic back pain, worsened, possibly related to falls, x-ray stable
Data Reviewed
-
EKG: Tracing Personally Visualized and interpreted (Atrial fibrillation at 60 bpm with occasional PVCs.)
Medical Tests (Nuc Med, Echo etc): Image Personally Visualized and interpreted (Transthoracic echocardiogram (10/13/2023): LVEF 40-45%; mild to moderate MR; moderate TR, estimated PAP 64 mmHg.)
Labs: Labs Reviewed by me
[2023-10-24] MEDS: LIPITOR 20 MG PO (16:51)
[2023-10-24] MEDS: NORCO 5/325 1 TABLET PO ×2 (17:25→23:26)
[2023-10-24] MEDS: ASPIR LOW (ENTERIC COATED) 81 MG PO (21:27)
[2023-10-24] MEDS: PROSCAR 5 MG PO (21:27)
[2023-10-25 03:46] VITALS: BP 115/51
[2023-10-25 06:00] VITALS: BMI 20.8
[2023-10-25 07:00] VITALS: BP 116/56
[2023-10-25] MEDS: ZYLOPRIM 100 MG PO (08:51)
[2023-10-25] MEDS: LASIX 20 MG PO (08:52)
[2023-10-25] MEDS: FARXIGA 10 MG PO (08:52)
[2023-10-25] MEDS: OMNICEF 300 MG PO ×2 (08:52→21:01)
[2023-10-25] MEDS: FLOMAX 0.400000000000000022 MG PO (08:52)
[2023-10-25] MEDS: VITAMIN B-12 1000 MCG PO (08:52)
[2023-10-25] MEDS: ELIQUIS 5 MG PO ×2 (08:52→21:01)
[2023-10-25 09:47] LABS: Hematocrit 23.6 % (39.0-52.0); Hemoglobin 8.5 g/dL (13.0-18.0); Mean Corpuscular Hgb 35.7 pg (27.0-31.0); Mean Corpuscular Volume 99.2 fL (80.0-94.0); Platelet Count 214 10^3/uL (130-400); Red Blood Cell Count 2.38 10^6/uL (4.70-6.10); Red Cell Dist. Width 15.6 % (11.5-14.5); White Blood Cell Count 6.4 10^3/uL (4.8-10.8)
[2023-10-25 10:49] LABS: Blood Urea Nitrogen 58 mg/dl (9-20); Calcium 8.7 mg/dl (8.4-10.2); Carbon Dioxide 29 mmol/L (22-30); Chloride 98 mmol/L (98-107); Estimated Creatinine Clearance 55 ml/min; Glucose 100 mg/dl (70-99); Potassium 4.6 mmol/L (3.5-5.1); Sodium 131 mmol/L (135-145); eGFR > 60.00
[2023-10-25 11:00] VITALS: BP 96/48
--- NOTE | 2023-10-25 11:02 | CM ---
called. Updated not d/c for 48 hours from attending note yesterday. has not held bed at [facility]. 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
sent update in allscripts to [facility] and called Donya [facility] to update.
--- NOTE | 2023-10-25 11:15 | CM ---
Spoke to . Patient was discharged from to [facility] 10/20/23. Prior to that admit he lived with in [facility] apartment.
is not holding bed at [facility] Referral was made to [facility] and [facility] updated on need for snf bed later this week.
PLAN:[facility].
--- NOTE | 2023-10-25 11:49 | W.PN.HOSP.TC ---
Today's Communication/Plan
-
monitor vitals
see plan
Continue to monitor heart rate
DC planning
Continue to hold beta-joseph
continue cefdinir
Assessment / Plan
Assessment / Plan
Persistent A-fib with bradycardia with pauses
-Toprol was discontinued on admission
-Continue Eliquis.
cardiology following; likely f/u outpatient
chronic systolic congestive heart failure
-2D echo 12/10/2020: EF 40%, moderately reduced systolic function. Global hypokinesis, mild MR/TR. Mild dilated aortic root 3.3 cm
-Increasing leg swelling R >> L causing ambulatory dysfunction
-TTE midrange EF 40-45%, mod MR, PAP of 64mmHg
-Continue with Lasix. Entresto was recently discontinued.
-proBNP elevated compared to previous admit. CXR negative for pulm edema.
Olive-oral erythematous papular rash
-not pruritic
-Not vesicular
-Denies hx of herpes zoster rash
-monitor for now
-avoid steroids
-?olive-oral dermatitis
Recent E-coli bacteremia
-bacteremia likely from urinary source. GB US showing wall thickening, no n/v. no abd pain.
-Urine cs growing Ecoli,
-Renal bladder us negative hydro/stone
-Surveillance cultures was negative
-Ceftriaxone was transitioned to cefdinir and complete course.
Mild cognitive impairment
TME - resolved
-patient have episode of forgetfulness at home.
-not on any sedative medication except home dose of hydrocodone
-tremors are chronic.
BPH with chronic urinary incontinence
Urinary retention
-Continue tamsulosin 0.4 mg daily, finasteride 5 mg at bedtime
-Moran placed at [facility]
Essential HTN
-Cont lasix. Toprol discontinued
Generalized weakness
Ambulatory dysfunction
-Patient having difficulty lifting right leg with significant swelling
-Recent Lower extremity venous Doppler negative
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
Hx of splenectomy
HLD
CAD/Multiple cardiac stents
Hx carotid stent
Chronic lumbar back pain
Neurostimulator in back with removal
Gout
Macular degeneration
DVT prophylaxis -Eliquis
DNR per patient
General: Comfortable and Cachectic
HEENT: Other (olive-oral rash); Negative Oxygen
Respiratory: Clear to Auscultation
Cardiac: Regular Rhythm and S1/S2; Negative Murmur or Rub
GI: Soft, Nontender and Nondistended
Musculoskeletal: Edema, Right Lower Extrem and Edema, Left Lower Extrem
Neuro: Awake, Alert, Oriented, No Motor Deficits and Nonfocal/Grossly Intact
Psych: Calm
Anticipated Discharge: Within 24 hours
Subjective/Interval History
-
Date of Service: October 25, 2023
denies pain
Objective Data
-
Labs:
Laboratory Results
10/25/23
08:44
WBC 6.4
Hgb 8.5 L
Hct 23.6 L
Plt Count 214
Sodium 131 L
Potassium 4.6
Chloride 98
Carbon Dioxide 29
BUN 58 H
Creatinine 1.0
Glucose 100 H
Calcium 8.7
Vital Signs:
Vital Signs
Temp Pulse Resp BP Pulse Ox
98.6 F 71 16 96/48 92
10/25/23 11:00 10/25/23 11:00 10/25/23 11:00 10/25/23 11:00 10/25/23 11:00
I&O
10/24/23 10/25/23 10/26/23
06:59 06:59 06:59
Intake Total 1120 / 1120
Output Total 1700 / 1700 1450 / 1450
Balance -1700 / -1700 -330 / -330
[2023-10-25 15:00] VITALS: BP 112/55
[2023-10-25] MEDS: LIPITOR 20 MG PO (17:16)
[2023-10-25 19:40] VITALS: BP 114/51
[2023-10-25] MEDS: NORCO 5/325 1 TABLET PO (21:01)
[2023-10-25] MEDS: ASPIR LOW (ENTERIC COATED) 81 MG PO (21:01)
[2023-10-25] MEDS: PROSCAR 5 MG PO (21:01)
[2023-10-25 23:45] VITALS: BP 99/44
[2023-10-26] VITALS (7 sets, daily range): BP systolic 93–129; BP diastolic 45–69; PULSE 64; BMI 20.9
[2023-10-26 06:27] LABS: Hematocrit 21.5 % (39.0-52.0); Hemoglobin 7.7 g/dL (13.0-18.0); Mean Corp Hgb Conc. 35.8 g/dL (33.0-37.0); Mean Corpuscular Hgb 35.6 pg (27.0-31.0); Mean Corpuscular Volume 99.5 fL (80.0-94.0); Platelet Count 221 10^3/uL (130-400); Red Blood Cell Count 2.16 10^6/uL (4.70-6.10); Red Cell Dist. Width 15.7 % (11.5-14.5); White Blood Cell Count 5.5 10^3/uL (4.8-10.8)
[2023-10-26 06:46] LABS: Blood Urea Nitrogen 55 mg/dl (9-20); Calcium 8.8 mg/dl (8.4-10.2); Carbon Dioxide 25 mmol/L (22-30); Chloride 99 mmol/L (98-107); Estimated Creatinine Clearance 61 ml/min; Glucose 102 mg/dl (70-99); Potassium 4.7 mmol/L (3.5-5.1); Sodium 129 mmol/L (135-145); eGFR > 60.00
[2023-10-26] MEDS: OMNICEF 300 MG PO ×2 (08:52→20:11)
[2023-10-26] MEDS: ELIQUIS 5 MG PO ×2 (08:52→20:11)
[2023-10-26] MEDS: LASIX 20 MG PO (08:53)
[2023-10-26] MEDS: FARXIGA 10 MG PO (08:54)
[2023-10-26] MEDS: ZYLOPRIM 100 MG PO (08:54)
[2023-10-26] MEDS: VITAMIN B-12 1000 MCG PO (08:54)
[2023-10-26] MEDS: FLOMAX 0.400000000000000022 MG PO (08:54)
--- NOTE | 2023-10-26 11:14 | W.PN.HOSP.TC ---
Addendum entered and electronically signed by Arturo Davidson MD 10/26/23 16:54:
spouse updated over the phone
Addendum entered and electronically signed by Arturo Davidson MD 10/26/23 13:41:
permanent afib with bradycardia with pauses
Original Note:
Today's Communication/Plan
-
monitor vitals
see plan
repeat H/H
check iron panel,b12,folate
monitor sodium
Cardiology to follow-up outpatient
hopeful dc in next 24hrs
Assessment / Plan
Assessment / Plan
Persistent A-fib with bradycardia with pauses
-Toprol was discontinued on admission
-Continue Eliquis.
cardiology following; patient to follow up with them outpatient
chronic systolic congestive heart failure
-2D echo 12/10/2020: EF 40%, moderately reduced systolic function. Global hypokinesis, mild MR/TR. Mild dilated aortic root 3.3 cm
-Increasing leg swelling R >> L causing ambulatory dysfunction
-TTE midrange EF 40-45%, mod MR, PAP of 64mmHg
-Continue with Lasix. Entresto was recently discontinued.
-proBNP elevated compared to previous admit. CXR negative for pulm edema.
Olive-oral erythematous papular rash
-not pruritic
-Not vesicular
-Denies hx of herpes zoster rash
-monitor for now
-avoid steroids
-?olive-oral dermatitis
Anemia
Denies any bleeding
Check iron panel, B12, folate
Hyponatremia
monitor
Recent E-coli bacteremia
-bacteremia likely from urinary source. GB US showing wall thickening, no n/v. no abd pain.
-Urine cs growing Ecoli,
-Renal bladder us negative hydro/stone
-Surveillance cultures was negative
-Ceftriaxone was transitioned to cefdinir and complete course.
Mild cognitive impairment
TME - resolved
-patient have episode of forgetfulness at home.
-not on any sedative medication except home dose of hydrocodone
-tremors are chronic.
BPH with chronic urinary incontinence
Urinary retention
-Continue tamsulosin 0.4 mg daily, finasteride 5 mg at bedtime
-Moran placed at SNF
Essential HTN
-Cont lasix. Toprol discontinued
Generalized weakness
Ambulatory dysfunction
-Patient having difficulty lifting right leg with significant swelling
-Recent Lower extremity venous Doppler negative
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
Hx of splenectomy
HLD
CAD/Multiple cardiac stents
Hx carotid stent
Chronic lumbar back pain
Neurostimulator in back with removal
Gout
Macular degeneration
DVT prophylaxis -Eliquis
DNR per patient
General: Comfortable and Cachectic
HEENT: Other (olive-oral rash); Negative Oxygen
Respiratory: Clear to Auscultation
Cardiac: Regular Rhythm and S1/S2; Negative Murmur or Rub
GI: Soft, Nontender and Nondistended
Musculoskeletal: Edema, Right Lower Extrem and Edema, Left Lower Extrem
Neuro: Awake, Alert, Oriented, No Motor Deficits and Nonfocal/Grossly Intact
Psych: Calm
PT/OT rec SNF
Anticipated Discharge: Within 24 hours
Subjective/Interval History
-
Date of Service: October 26, 2023
denies pain
Objective Data
-
Labs:
Laboratory Results
10/26/23 10/26/23
05:20 11:00
WBC 5.5
Hgb 7.7 L Pending
Hct 21.5 L Pending
Plt Count 221
Sodium 129 L
Potassium 4.7
Chloride 99
Carbon Dioxide 25
BUN 55 H
Creatinine 0.9
Glucose 102 H
Calcium 8.8
Vital Signs:
Vital Signs
Temp Pulse Resp BP Pulse Ox
97.7 F 64 17 123/69 98
10/26/23 07:25 10/26/23 07:25 10/26/23 07:25 10/26/23 07:25 10/26/23 07:25
I&O
10/25/23 10/26/23 10/27/23
06:59 06:59 06:59
Intake Total 1120 / 1120 240 / 240 450 / 450
Output Total 1450 / 1450 150 / 150 650 / 650
Balance -330 / -330 90 / 90 -200 / -200
[2023-10-26 11:43] LABS: Hematocrit 25.6 % (39.0-52.0); Hemoglobin 9.2 g/dL (13.0-18.0)
[2023-10-26 11:50] LABS: Iron 21 ug/dl (49-181)
[2023-10-26 12:00] LABS: Percent Saturation 9 % (20-50); Total Iron Binding Capacity 216 ug/dl (261-462)
--- NOTE | 2023-10-26 13:05 | PN.CDI ---
CDI
- -
CDI:
Physician Documentation Request
Admit Date: 10/23/23 18:53
Dear Doctor Stuart,
Pt. admitted with Bradycardia
10/23 Cardiology Note:'Permanent atrial fibrillation/primarily asymptomatic bradycardia.'
10/24 PN: 'Persistent A-fib with bradycardia with pauses.'
Do to conflicting documentation on type of Atrial fibrillation, can you please specify the type of Atrial fibrillation
Persistent atrial fibrillation - episodes of continuous AF that last more than 7 days and do not self-terminate
Permanent atrial fibrillation - when a decision has been made to accept the presence of AF and there is no further attempt to restore or maintain sinus rhythm
Other - please specify
Use of terms such as suspected, likely, concern for, or probable (associated with a specific diagnosis that is being evaluated, monitored, or treated as if it exists) are acceptable and can be coded in the inpatient setting, when documented at the
time of discharge.
Thank you,
Andree Cali RN, BSN
CDI Specialist
Available via [place] [employer]
Please use your independent medical judgment in providing your response.
[2023-10-26 15:01] LABS: Vitamin B12 > 1000 pg/ml (239-931)
[2023-10-26 16:06] LABS: Osmolality Serum 287 mOsm/kg (275-300)
[2023-10-26 16:15] LABS: Folate 6.6 ng/ml (2.76-20)
[2023-10-26] MEDS: LIPITOR 20 MG PO (17:12)
[2023-10-26] MEDS: NORCO 5/325 1 TABLET PO (20:10)
[2023-10-26] MEDS: PROSCAR 5 MG PO (22:30)
[2023-10-26] MEDS: ASPIR LOW (ENTERIC COATED) 81 MG PO (22:30)
[2023-10-27 03:31] VITALS: BP 131/63
[2023-10-27 06:00] VITALS: BMI 20.8
[2023-10-27 06:58] LABS: Hematocrit 23.9 % (39.0-52.0); Hemoglobin 8.5 g/dL (13.0-18.0); Mean Corp Hgb Conc. 35.6 g/dL (33.0-37.0); Mean Corpuscular Hgb 35.9 pg (27.0-31.0); Mean Corpuscular Volume 100.8 fL (80.0-94.0); Platelet Count 239 10^3/uL (130-400); Red Blood Cell Count 2.37 10^6/uL (4.70-6.10); Red Cell Dist. Width 15.8 % (11.5-14.5)
[2023-10-27 07:00] VITALS: BP 127/69
[2023-10-27 07:18] LABS: Blood Urea Nitrogen 50 mg/dl (9-20); Calcium 9.3 mg/dl (8.4-10.2); Carbon Dioxide 28 mmol/L (22-30); Chloride 99 mmol/L (98-107); Estimated Creatinine Clearance 55 ml/min; Glucose 111 mg/dl (70-99); Potassium 5.1 mmol/L (3.5-5.1); Sodium 130 mmol/L (135-145); eGFR > 60.00
[2023-10-27] MEDS: FARXIGA 10 MG PO (08:45)
[2023-10-27] MEDS: LASIX 20 MG PO (08:45)
[2023-10-27] MEDS: ZYLOPRIM 100 MG PO (08:45)
[2023-10-27] MEDS: ELIQUIS 5 MG PO ×2 (08:45→19:51)
[2023-10-27] MEDS: VITAMIN B-12 1000 MCG PO (08:46)
[2023-10-27] MEDS: FLOMAX 0.400000000000000022 MG PO (08:46)
[2023-10-27] MEDS: OMNICEF 300 MG PO ×2 (08:46→19:52)
--- NOTE | 2023-10-27 09:45 | CM ---
Addendum entered by Tiera Perez 10/27/23 13:03:
CM spoke with Donya from [facility] and bed available tomorrow pending physician assessment. CM will continue to follow for discharge planning needs.
Plan; [facility]
Original Note:
Patient seen at bedside, sleeping. CM will call to Donya at [facility] and confirm status pending referral for SNF sent yesterday.
Plan; SNF
--- NOTE | 2023-10-27 10:25 | W.PN.HOSP.TC ---
Today's Communication/Plan
-
IV Fe
Assessment / Plan
Assessment / Plan
Gen: NAD, Awake and alert, appears chronically ill
Eyes: EOMI, PERRLA, no scleral icterus.
Neck: supple.
ENMT: perioral petechial rash
CV: irreg/irreg, +S1/S2, no m/r/g.
Resp: CTAB, no rales, wheezes, or rhonchi.
Abd: +BS, soft, NT, ND
Skin: Intact, 2+ B/L LE edema
Neuro: CN 2-12 intact, non-focal.
Psych: Normal mood and affect.
Persistent A-fib with bradycardia with pauses:
-Toprol was discontinued on admission
-Continue Eliquis
-cardiology saw in c/s. Recommended stopping beta-joseph and outpatient follow-up.
Fe def Anemia:
-denies any bleeding
-Iron deficient by iron panel results
-Start IV Ferrlecit
-B12/folate normal (macrocytic indices)
Olive-oral erythematous papular rash
-not pruritic
-Not vesicular
-Denies hx of herpes zoster rash
-monitor for now
-avoid steroids
-? olive-oral dermatitis
Other problems:
Chronic HFrEF: cont Farxiga/Lasix
Recent E-coli bacteremia due to UTI: Cont Cefdinir
Mild cognitive impairment (episodes of forgetfulness at home)
Acute metabolic encephalopathy, now resolved
Chronic tremors
Hyponatremia, mild, stable
BPH with chronic urinary incontinence and urinary retention: cont Proscar/Flomax. Moran placed at [facility].
Essential HTN: cont Lasix (Toprol stopped)
Generalized weakness/Ambulatory dysfunction: PT/OT
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
h/o splenectomy
HLD: cont statin
CAD with h/o multiple cardiac stents: cont ASA/statin. BB stopped due to bradycardia.
h/o carotid stent
Chronic lumbar back pain
Neurostimulator in back s/p removal
Gout
Macular degeneration
DNR/Eliquis
Anticipated Discharge: Within 24 hours
Subjective/Interval History
-
Date of Service: October 27, 2023
No new complaints.
Objective Data
-
Labs:
Laboratory Results
10/27/23
06:41
WBC 6.0
Hgb 8.5 L
Hct 23.9 L
Plt Count 239
Sodium 130 L
Potassium 5.1
Chloride 99
Carbon Dioxide 28
BUN 50 H
Creatinine 1.0
Glucose 111 H
Calcium 9.3
Vital Signs:
Vital Signs
Temp Pulse Resp BP Pulse Ox
97.9 F 68 18 127/69 96
10/27/23 07:00 10/27/23 07:00 10/27/23 07:00 10/27/23 07:00 10/27/23 07:00
I&O
10/26/23 10/27/23 10/28/23
06:59 06:59 06:59
Intake Total 240 / 240 870 / 870
Output Total 150 / 150 1999 / 1999
Balance 90 / 90 -1130 / -1130
[2023-10-27] MEDS: FERRLECIT 110 MG IV (13:23)
[2023-10-27 14:40] VITALS: BP 119/48; PULSE 78
[2023-10-27 15:43] VITALS: BP 107/72
[2023-10-27] MEDS: LIPITOR 20 MG PO (17:11)
[2023-10-27] MEDS: NORCO 5/325 1 TABLET PO ×2 (17:16→23:24)
[2023-10-27 19:57] VITALS: BP 100/47
[2023-10-27] MEDS: ASPIR LOW (ENTERIC COATED) 81 MG PO (22:19)
[2023-10-27] MEDS: PROSCAR 5 MG PO (22:20)
[2023-10-27 22:49] VITALS: BP 116/54
[2023-10-27 23:19] LABS: Transferrin 158 mg/dL (200-360)
[2023-10-28 03:39] VITALS: BP 109/55
[2023-10-28 06:00] VITALS: BMI 20.6
[2023-10-28 07:00] VITALS: BP 112/72
[2023-10-28 07:25] LABS: Hematocrit 24.1 % (39.0-52.0); Hemoglobin 8.5 g/dL (13.0-18.0); Mean Corp Hgb Conc. 35.3 g/dL (33.0-37.0); Mean Corpuscular Volume 99.2 fL (80.0-94.0); Red Blood Cell Count 2.43 10^6/uL (4.70-6.10); Red Cell Dist. Width 15.7 % (11.5-14.5); White Blood Cell Count 4.8 10^3/uL (4.8-10.8)
[2023-10-28 08:07] LABS: Blood Urea Nitrogen 42 mg/dl (9-20); Calcium 9.2 mg/dl (8.4-10.2); Carbon Dioxide 32 mmol/L (22-30); Chloride 100 mmol/L (98-107); Estimated Creatinine Clearance 54 ml/min; Glucose 103 mg/dl (70-99); Potassium 4.7 mmol/L (3.5-5.1); Sodium 131 mmol/L (135-145); eGFR > 60.00
[2023-10-28] MEDS: FLOMAX 0.400000000000000022 MG PO (08:17)
[2023-10-28] MEDS: VITAMIN B-12 1000 MCG PO (08:17)
[2023-10-28] MEDS: LASIX 20 MG PO (08:18)
[2023-10-28] MEDS: OMNICEF 300 MG PO (08:18)
[2023-10-28] MEDS: ELIQUIS 5 MG PO (08:18)
[2023-10-28] MEDS: FARXIGA 10 MG PO (08:18)
[2023-10-28] MEDS: ZYLOPRIM 100 MG PO (08:19)
[2023-10-28 10:37] LABS: COVID-19 Antigen Negative (Negative)
--- NOTE | 2023-10-28 10:42 | W.PN.HOSP.TC ---
Today's Communication/Plan
-
d/c
Assessment / Plan
Assessment / Plan
Gen: remains NAD, Awake and alert, appears chronically ill
Eyes: EOMI, PERRLA, no scleral icterus.
Neck: supple.
ENMT: perioral petechial rash
CV: remains irreg/irreg, +S1/S2, no m/r/g.
Resp: CTAB anteriorly, no rales, wheezes, or rhonchi.
Abd: +BS, soft, NT, ND
Skin: see above, otherwise intact
Neuro: CN 2-12 intact, non-focal.
Psych: Normal mood and affect.
Persistent A-fib with bradycardia with pauses:
-Toprol was discontinued on admission
-Continue Eliquis
-cardiology saw in c/s. Recommended stopping beta-joseph and outpatient follow-up.
Fe def Anemia:
-denies any bleeding
-Iron deficient by iron panel results
-cont IV Ferrlecit (PO Fe on d/c)
-B12/folate normal (macrocytic indices)
Olive-oral erythematous papular rash
-not pruritic
-Not vesicular
-Denies hx of herpes zoster rash
-monitor for now
-avoid steroids
-? olive-oral dermatitis
Other problems:
Chronic HFrEF: cont Farxiga/Lasix
Recent E-coli bacteremia due to UTI: Cont Cefdinir
Mild cognitive impairment (episodes of forgetfulness at home)
Acute metabolic encephalopathy, now resolved
Chronic tremors
Hyponatremia, mild, stable
BPH with chronic urinary incontinence and urinary retention: cont Proscar/Flomax. Moran placed at [facility].
Essential HTN: cont Lasix (Toprol stopped)
Generalized weakness/Ambulatory dysfunction: PT/OT
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
h/o splenectomy
HLD: cont statin
CAD with h/o multiple cardiac stents: cont ASA/statin. BB stopped due to bradycardia.
h/o carotid stent
Chronic lumbar back pain
Neurostimulator in back s/p removal
Gout
Macular degeneration
DNR/Eliquis
Medically stable for discharge.
Total time spent on d/c = 31 min. This included today's physical exam, progress note, review of laboratory and diagnostic data, preparation of discharge documents and prescriptions, and discussions about the pt's hospital course and discharge plan
with the patient and other medical biller/coder involved in the patient's care.
Anticipated Discharge: Today
Subjective/Interval History
-
Date of Service: October 28, 2023
No new complaints.
Objective Data
-
Labs:
Laboratory Results
10/28/23 10/28/23
06:40 07:43
WBC 4.8
Hgb 8.5 L
Hct 24.1 L
Plt Count
Sodium Cancelled 131 L
Potassium Cancelled 4.7
Chloride Cancelled 100
Carbon Dioxide Cancelled 32 H
BUN Cancelled 42 H
Creatinine Cancelled 1.0
Glucose Cancelled 103 H
Calcium Cancelled 9.2
Vital Signs:
Vital Signs
Temp Pulse Resp BP Pulse Ox
97.9 F 61 18 112/72 98
10/28/23 07:00 10/28/23 07:00 10/28/23 07:00 10/28/23 07:00 10/28/23 07:00
I&O
10/27/23 10/28/23 10/29/23
06:59 06:59 06:59
Intake Total 870 / 870 240 / 240 240 / 240
Output Total 1999 / 1999 1900 / 1900
Balance -1130 / -1130 -1660 / -1660 240 / 240
[2023-10-28 11:00] VITALS: BP 108/47
--- NOTE | 2023-10-28 11:03 | CM ---
Addendum entered by Tiera Perez 10/28/23 11:33:
VM left for patient to complete IMM/.
Original Note:
Patient seen at bedside. Patient accepted for bed at [facility] for today and per physician patient can go following Iron infusion. Patient will need ambulance and is a heavy assist of 2 and Medical Necessity form is completed. CM will need to
confirm transfer time is as soon as possible as facility has restrictions on time of arrival. Patient to be contacted for IMM. CM will continue to follow for discharge planning needs.
Please call report to [phone]/ fax [phone]
[2023-10-28] MEDS: FERRLECIT 110 MG IV (13:09)
--- NOTE | 2023-10-28 13:38 | W.DCSUMMARY ---
Discharge Summary
Discharge Data
Date of Admission: 10/23/23
Date of Discharge: 10/28/23
-
Pending Results: No
Hospital Course
Primary diagnoses:
Persistent A-fib with bradycardia with pauses
Iron deficiency anemia
Secondary diagnoses:
Loren-oral erythematous papular rash
Chronic heart failure with reduced ejection fraction
Recent E-coli bacteremia due to urinary tract infection
Mild cognitive impairment (episodes of forgetfulness at home)
Acute metabolic encephalopathy
Chronic tremors
Hyponatremia
Benign prostatic hypertrophy with chronic urinary incontinence and urinary retention
Essential hypertension
Generalized weakness
Ambulatory dysfunction
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
h/o splenectomy
Hyperlipidemia
Coronary disease with h/o multiple cardiac stents
h/o carotid stent
Chronic lumbar back pain
Neurostimulator in back s/p removal
Gout
Macular degeneration
Consultants:
Cardiology
Imaging:
CXR: Mild cardiomegaly with small bilateral pleural effusions but no pulmonary edema
Hospital course: 87-year-old male who presented after he had removed his Moran catheter which was replaced in the ER. While in the ER the patient was found to have significant bradycardia. The patient had persistent atrial fibrillation with
bradycardia and pauses. The patient was seen by cardiology. His Toprol was discontinued. Cardiology had no further recommendations. He was noted to have iron deficiency anemia and was given IV Ferrlecit. He was discharged on oral iron. Patient
did have a loren-oral erythematous papular rash.the rash was not pruritic and not vesicular. The patient denied any history of herpes zoster. Recommend outpatient follow-up with dermatology. The patient was discharged in medically stable condition
peer
Discharge Plan
-
Patient Disposition: Fpc/SNF
Discharge Diagnosis/Procedures: Permanent atrial fibrillation with bradycardia with pauses
Chronic systolic congestive heart failure
Hyponatremia
Anemia
Diet: As tolerated and Other diet
Additional Diets: Heart healthy
Activity: As tolerated
Driving Restrictions: No driving
Bathing Restrictions: None
Referrals:
Gloria Arguello at [facility] [Outside]
Piter Greene MD [Active] - (call office to set up follow up with cardiology)
Michael Bob MD [Family Provider] - in less than 1 week
Prescriptions:
New
ferrous sulfate 325 mg (65 mg iron) tablet
325 mg PO DAILY Qty: 1 0RF
Continued
aspirin 81 MG tablet,delayed release (DR/EC)
81 mg PO HS
atorvastatin 20 MG tablet
20 mg PO QPM 0RF
tamsulosin 0.4 MG capsule
0.4 mg PO DAILY 0RF
finasteride 5 MG tablet
5 mg PO HS
nitroglycerin 0.4 MG tablet, sublingual
0.4 mg sublingual [id number] PRN (Reason: chest pain)
allopurinol 100 mg Tablet
100 mg PO DAILY
hydrocodone-acetaminophen 5-300 mg Tablet
1 tab PO Q6HPRN PRN (Reason: severe pains)
furosemide 20 MG tablet
20 mg PO DAILY
Rx Instructions:
Please take DAILY- do not skip any days.
Eliquis 5 mg Tablet
5 mg PO BID Qty: 60 0RF
dapagliflozin propanediol 10 mg Tablet
10 mg PO DAILY Qty: 30 0RF
cefdinir 300 mg capsule
300 mg PO BID Qty: 20 0RF
cyanocobalamin (vitamin B-12) 1,000 mcg capsule
1,000 mcg PO DAILY Qty: 30 0RF
magnesium hydroxide [Milk of Magnesia] 400 mg/5 mL Suspension
2,400 mg PO [id number] PRN (Reason: CONSTIPATION)
bisacodyl [Dulcolax (bisacodyl)] 10 mg Suppository
10 mg MN DAILYPRN PRN (Reason: IF NO BM AFTR MOM)
Fleet Enema 19-7 gram/118 mL Enema
118 ml MN DAILYPRN PRN (Reason: IF NO BM AFTR DULCOLAX)
Discontinued
metoprolol succinate 25 mg Tablet Extended Release 24 Hr
25 mg PO DAILY
Discharge Orders:
Discharge Patient (As Directed); Ordered 10/28/23
Ordered By: Hernan Adams
Discharge Date and Time
Print Language: JAPANESE
[2023-10-28] MEDS: NORCO 5/325 1 TABLET PO (15:00)
[2023-10-28 15:47] VITALS: BP 121/55
== END 2023-10-28 17:56 | DRG 308 ==
LOC: 4 WEST ACU 18:53
PROVIDERS: Registered Nurse; ADMITTING PHYSICIAN Internal Medicine; ATTENDING PHYSICIAN Internal Medicine; CONSULT PHYSICIAN Internal Medicine; EMERGENCY PHYSICIAN Emergency Medicine; FAMILY PHYSICIAN Family Medicine
DX: I48.21 Permanent atrial fibrillation (principal); G93.41 Metabolic encephalopathy; E87.1 Hypo-osmolality and hyponatremia; N39.0 Urinary tract infection, site not specified; R78.81 Bacteremia; I50.22 Chronic systolic (congestive) heart failure; I27.21 Secondary pulmonary arterial hypertension; D63.8 Anemia in other chronic diseases classified elsewhere; I11.0 Hypertensive heart disease with heart failure; Z66 Do not resuscitate; I35.1 Nonrheumatic aortic (valve) insufficiency; D50.9 Iron deficiency anemia, unspecified; I95.9 Hypotension, unspecified; I49.3 Ventricular premature depolarization; I25.10 Atherosclerotic heart disease of native coronary artery without angina pectoris; Z95.5 Presence of coronary angioplasty implant and graft; E21.3 Hyperparathyroidism, unspecified; E53.8 Deficiency of other specified B group vitamins; E78.5 Hyperlipidemia, unspecified; E86.0 Dehydration; G89.29 Other chronic pain; M54.50 Low back pain, unspecified; G31.84 Mild cognitive impairment of uncertain or unknown etiology; B96.20 Unspecified Escherichia coli [E. coli] as the cause of diseases classified elsewhere; H35.30 Unspecified macular degeneration; K59.00 Constipation, unspecified; M10.9 Gout, unspecified; N40.1 Benign prostatic hyperplasia with lower urinary tract symptoms; R32 Unspecified urinary incontinence; R33.8 Other retention of urine; R07.9 Chest pain, unspecified; R23.8 Other skin changes; R25.1 Tremor, unspecified; R26.2 Difficulty in walking, not elsewhere classified; Z79.01 Long term (current) use of anticoagulants; Z79.899 Other long term (current) drug therapy; Z87.891 Personal history of nicotine dependence; Z85.72 Personal history of non-Hodgkin lymphomas; Z90.81 Acquired absence of spleen; Z88.1 Allergy status to other antibiotic agents
CPT/HCPCS: 51702; 71046; 80048; 81003; 81015; 82533; 82607; 82728; 82746; 83540; 83550; 83880; 83930; 84443; 84466; 85014; 85018; 85025; 85027; 87070; 87811; 93005; 97163; 97167; 97530; 97535; 99285; J2916